=== PATIENT | female | born 1975 | race Caucasian/White ===

== ENCOUNTER → 2016-11-07 | Outpatient (CLI) | payer OTHER ==
--- NOTE | 2016-11-07 16:27 | XR ---
EXAMINATION TYPE: XR chest 2V DATE OF EXAM: 11/07/2016 4:22 PM COMPARISON: 11/02/2014 HISTORY: Shortness of breath FINDINGS: The lungs are clear and there is no pneumothorax, pleural effusion, or focal pneumonia. Postsurgica l change and mild cardiomegaly. There is mild interstitial prominence. IMPRESSION: 1. Correlate for mild venous congestion or bronchitis.
== END | disposition home or self-care (01) ==
LOC: LABWHC1 16:01
PROVIDERS: ATTEND Internal Medicine Cardiovascular Disease
DX: R06.02 Shortness of breath (principal); R91.8 Other nonspecific abnormal finding of lung field
CPT/HCPCS: 36415; 71020; 83880; 85379

== ENCOUNTER 2017-03-12 15:19 | Emergency (ER) | payer OTHER ==
[2017-03-12 15:29] VITALS: BP 140/95; PULSE 94; RESP 18; TEMP 97.4
[2017-03-12] MEDS ORDERED: DIPH,PERTUS(ACELL)TETVAC-LF 0.5 ML VIAL IM ONE (15:46)
--- NOTE | 2017-03-12 15:54 | ED ---
Fall HPI - General Chief Complaint: Fall Stated Complaint: IHS. Fall Time Seen by Provider: 03/12/17 15:31 Source: patient, RN notes reviewed Mode of arrival: ambulatory Limitations: no limitations - History of Present Illness Initial Comments: 41-year-old female presents emergency Department chief complaint fall. Patient states she was walking out of work states that she tripped and fell onto the concrete. Patient has abrasion to her left knee, left hand. Patient primarily complains of left hand and thumb pain. Patient denies any head injury no LOC. She is unsure when her last tetanus was. Patient is able to ambulate on her left knee with minimal discomfort. Denies any hip pain. - Related Data Home Medications Medication Instructions Recorded Confirmed Ezetimibe [Zetia] 10 mg PO HS 09/20/14 10/30/14 Lisinopril [Prinivil] 5 mg PO DAILY 09/20/14 10/30/14 amLODIPine [Norvasc] 5 mg PO QAM 09/21/14 10/30/14 ALPRAZolam 0.5 mg PO TID PRN 10/27/14 10/30/14 Previous Rx's Medication Instructions Recorded Aspirin EC [Ecotrin Low Dose] 162 mg PO DAILY #60 tablet. 11/04/14 HYDROcodone/APAP 5-325MG [[place] 1 each PO Q4HR PRN #40 tab 11/04/14 5-325] Metoprolol Tartrate [Lopressor] 75 mg PO BID #60 tab 11/04/14 Allergies Allergy/AdvReac Type Severity Reaction Status Date / Time No Known Allergies Allergy Verified 03/12/17 15:29 Review of Systems ROS Statement: Those systems with pertinent positive or pertinent negative responses have been documented in the HPI. ROS Other: All systems not noted in ROS Statement are negative. Past Medical History Past Medical History: CVA/TIA, Hyperlipidemia, Hypertension, Sleep Apnea/CPAP/ BIPAP Additional Past Medical History / Comment(s): "MRI SHOWS FEW STROKES;" C/O N/T, WEAKNESS LT ARM. LIGHTHEADEDNESS. History of Any Multi-Drug Resistant Organisms: None Reported Past Surgical History: Cardiac Valve Replacement Additional Past Surgical History / Comment(s): EXC WISDOM TEETH Past Anesthesia/Blood Transfusion Reactions: No Reported Reaction Past Psychological History: Anxiety Additional Psychological History / Comment(s): "HAVE ANXIETY ATTACKS". 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 No experience. No international travels. No animal exposures. Smoking Status: Former smoker Past Alcohol Use History: None Reported Additional Past Alcohol Use History / Comment(s): QUIT SMOKING MAY 2014,SMOKED 15 YRS Past Drug Use History: None Reported - Past Family History Mother Family Medical History: AFIB Additional Family Medical History / Comment(s): "BLOOD CLOT BEHIND HEART" Brother(s) Family Medical History: CVA/TIA Additional Family Medical History / Comment(s): HAD MULT STROKES IN LATE , LUPUS General Exam Limitations: no limitations General appearance: alert, in no apparent distress Head exam: Present: atraumatic, normocephalic, normal inspection Neck exam: Present: normal inspection. Absent: tenderness, meningismus, lymphadenopathy Respiratory exam: Present: normal lung sounds bilaterally. Absent: respiratory distress, wheezes, rales, rhonchi, stridor Cardiovascular Exam: Present: regular rate, normal rhythm, normal heart sounds. Absent: systolic murmur, diastolic murmur, rubs, gallop, clicks Extremities exam: Present: other (Left knee there is small abrasion over the patella with minimal tenderness full range of motion neurovascular intact, left hand there is tenderness over the left thumb, dorsal aspect of the hand there is no snuffbox tenderness there is no wrist tenderness patient has full range of motion and neurovascular intact) Neurological exam: Present: alert, oriented X3, CN II-XII intact Skin exam: Present: warm, dry, intact, normal color. Absent: rash Course Vital Signs 03/12/17 15:25 Temperature 97.4 F L Pulse Rate 94 Respiratory 18 Rate Blood Pressure 140/95 O2 Sat by Pulse 100 Oximetry Medical Decision Making - Medical Decision Making 41-year-old female presented for fall. Patient has multiple abrasions patient' s tetanus was updated. There is no acute fracture of her left hand. Patient is left hand sprain return parameters were discussed. Disposition Clinical Impression: Fall, Sprain of left hand, Knee abrasion Disposition: HOME SELF-CARE Condition: Stable Instructions: Hand Sprain (ED) Additional Instructions: Please return to the Emergency Department if symptoms worsen or any other concerns. Referrals: Hugh Santo MD [Primary Care Provider] - 1-2 days Time of Disposition: 16:00
--- NOTE | 2017-03-12 15:59 | XR ---
EXAMINATION TYPE: XR hand complete LT DATE OF EXAM: 03/12/2017 CLINICAL HISTORY: pain TECHNIQUE: Frontal, lateral and oblique images of the left hand are obtained. COMPARISON: None. FINDINGS: There is no acute fracture/dislocation evident. The joint spaces appear within normal limi ts. The overlying soft tissue appears unremarkable. IMPRESSION: There is no acute fracture or dislocation. ICD 10 NO FRACTURE, INITIAL EVALUATION
== END 2017-03-12 16:25 | disposition home or self-care (01) ==
LOC: EC 15:19
DX: S63.92XA Sprain of unspecified part of left wrist and hand, initial encounter (principal); S60.512A Abrasion of left hand, initial encounter; E78.5 Hyperlipidemia, unspecified; I10 Essential (primary) hypertension; Z86.73 Personal history of transient ischemic attack (TIA), and cerebral infarction without residual deficits; Z23 Encounter for immunization; Z87.891 Personal history of nicotine dependence; Z79.899 Other long term (current) drug therapy; W01.0XXA Fall on same level from slipping, tripping and stumbling without subsequent striking against object, initial encounter; Y99.0 Civilian activity done for income or pay
CPT/HCPCS: 90471; 90715; 99283

== ENCOUNTER 2017-11-11 11:19 | Emergency (ER) | payer OTHER ==
[2017-11-11] MEDS ORDERED: ASPIRIN 81 MG PO STA (11:37)
--- NOTE | 2017-11-11 12:11 | XR ---
EXAMINATION TYPE: XR chest 2V DATE OF EXAM: 11/11/2017 COMPARISON: 11/07/2016 HISTORY: 42-year-old female with chest pain TECHNIQUE: PA and lateral views FINDINGS: Median sternotomy wires are present. The cardiomediastinal silhouette, aorta, and pulmonary vasculatu re are within normal limits. Some strandy atelectasis at the right base. Otherwise, lungs and pleural spaces are clear. IMPRESSION: No acute cardiopulmonary process.
[2017-11-11 12:31] LABS: Basophils # (A) 0.1 k/uL (0-0.2); Basophils % (A) 0 %; Eosinophils # (A) 0.2 k/uL (0-0.7); Eosinophils % (A) 1 %; HCT 44.4 % (34.0-46.0); HGB 14.9 gm/dL (11.4-16.0); Lymphocytes # (A) 2.7 k/uL (1.0-4.8); Lymphocytes % (A) 20 %; MCH 29.6 pg (25.0-35.0); MCHC 33.5 g/dL (31.0-37.0); MCV 88.3 fL (80.0-100.0); Mean Platelet Volume 7.4; Monocytes # (A) 0.4 k/uL (0-1.0); Monocytes % (A) 3 %; Neutrophils # (A) 9.6 k/uL (1.3-7.7); Neutrophils % (A) 73 %; Platelet Count 230 k/uL (150-450); RBC 5.03 m/uL (3.80-5.40); RDW 12.9 % (11.5-15.5); WBC 13.2 k/uL (3.8-10.6)
[2017-11-11 12:41] LABS: ALT 38 U/L (9-52); AST 21 U/L (14-36); Albumin 4.1 g/dL (3.5-5.0); Alkaline Phosphatase 117 U/L (38-126); Anion Gap 10 mmol/L; Blood Urea Nitrogen 11 mg/dL (7-17); Calcium 9.7 mg/dL (8.4-10.2); Carbon Dioxide 26 mmol/L (22-30); Chloride 104 mmol/L (98-107); Glucose 94 mg/dL (74-99); Lipase 49 U/L (23-300); Magnesium 1.7 mg/dL (1.6-2.3); Potassium 3.8 mmol/L (3.5-5.1); Sodium 140 mmol/L (137-145); Total Bilirubin 0.3 mg/dL (0.2-1.3); Total Protein 7.2 g/dL (6.3-8.2)
[2017-11-11 12:52] LABS: Partial Thromboplastin Time 22.5 sec (22.0-30.0); Prothrombin Time 10.1 sec (9.0-12.0)
[2017-11-11 13:21] VITALS: BP 154/77; RESP 20
--- NOTE | 2017-11-11 13:23 | ED ---
Chest Pain HPI - General Chief Complaint: Chest Pain Stated Complaint: SOB Time Seen by Provider: 11/11/17 11:32 Source: patient Mode of arrival: ambulatory Limitations: no limitations - History of Present Illness Initial Comments: Patient complains of chest pain. Pain is in the middle of the chest. It does not radiate anywhere. Nothing makes it better or worse. She has no shortness of breath. She has no dyspnea. She has no exertional symptoms. She has no pain or swelling the legs. She has no palpitations. She denies any recent long plane or cards. She has not traveled anywhere. She has had no syncope or presyncope. - Related Data Home Medications Medication Instructions Recorded Confirmed Aspirin EC [Ecotrin Low Dose] 81 mg PO DAILY 11/11/17 11/11/17 Cyclobenzaprine [Flexeril] 5 mg PO HS 11/11/17 11/11/17 Furosemide [Lasix] 40 mg PO SUMOTU 11/11/17 11/11/17 Ibuprofen [Advil] 600 - 800 mg PO Q8HR PRN 11/11/17 11/11/17 Lisinopril [Prinivil] 20 mg PO DAILY 11/11/17 11/11/17 Metoprolol Tartrate [Lopressor] 50 mg PO BID 11/11/17 11/11/17 Allergies Allergy/AdvReac Type Severity Reaction Status Date / Time No Known Allergies Allergy Verified 11/11/17 12:42 Review of Systems ROS Statement: Those systems with pertinent positive or pertinent negative responses have been documented in the HPI. ROS Other: All systems not noted in ROS Statement are negative. EKG Findings - EKG Comments: EKG Findings:: Twelve-lead EKG shows ventricular rate 90 bpm, normal ER interval and QRS complexes, no ST elevation or depression, interpreted by me as normal sinus rhythm. Past Medical History Past Medical History: CVA/TIA, Hyperlipidemia, Hypertension, Sleep Apnea/CPAP/ BIPAP Additional Past Medical History / Comment(s): "MRI SHOWS FEW STROKES;" C/O N/T, WEAKNESS LT ARM. LIGHTHEADEDNESS. History of Any Multi-Drug Resistant Organisms: None Reported Past Surgical History: Cardiac Valve Replacement Additional Past Surgical History / Comment(s): EXC WISDOM TEETH Past Anesthesia/Blood Transfusion Reactions: No Reported Reaction Past Psychological History: Anxiety Smoking Status: Former smoker Past Alcohol Use History: None Reported Past Drug Use History: None Reported - Past Family History Mother Family Medical History: AFIB Additional Family Medical History / Comment(s): "BLOOD CLOT BEHIND HEART" Brother(s) Family Medical History: CVA/TIA Additional Family Medical History / Comment(s): HAD MULT STROKES IN LATE 20'S, LUPUS General Exam Limitations: no limitations General appearance: alert, in no apparent distress Head exam: Present: atraumatic, normocephalic, normal inspection Eye exam: Present: normal appearance, PERRL, EOMI. Absent: scleral icterus, conjunctival injection, periorbital swelling ENT exam: Present: normal exam, mucous membranes moist Neck exam: Present: normal inspection. Absent: tenderness, meningismus, lymphadenopathy Respiratory exam: Present: normal lung sounds bilaterally. Absent: respiratory distress, wheezes, rales, rhonchi, stridor Cardiovascular Exam: Present: regular rate, normal rhythm, normal heart sounds. Absent: systolic murmur, diastolic murmur, rubs, gallop, clicks GI/Abdominal exam: Present: soft, normal bowel sounds. Absent: distended, tenderness, guarding, rebound, rigid Extremities exam: Present: normal inspection, full ROM, normal capillary refill. Absent: tenderness, pedal edema, joint swelling, calf tenderness Back exam: Present: normal inspection Neurological exam: Present: alert, oriented X3, CN II-XII intact Psychiatric exam: Present: normal affect, normal mood Skin exam: Present: warm, dry, intact, normal color. Absent: rash Course Vital Signs 11/11/17 11:27 Temperature 97.8 F Pulse Rate 116 H Respiratory 22 Rate Blood Pressure 141/101 O2 Sat by Pulse 100 Oximetry Chest Pain [facility] Patient complains of chest pain. Her examination is unremarkable. EKG is normal. Labs are all normal. Chest x-ray is normal. Patient is not having any symptoms on reevaluation. There is no evidence of an acute emergency condition at this time. She is stable for discharge. Disposition Clinical Impression: Chest pain Disposition: HOME SELF-CARE Condition: Good Instructions: Chest Pain (ED) Referrals: Hugh Santo MD [Primary Care Provider] - 1-2 days Time of Disposition: 13:23
[2017-11-11 13:42] VITALS: PULSE 87; TEMP 98
== END 2017-11-11 13:42 | disposition home or self-care (01) ==
LOC: EC 11:19
DX: R07.9 Chest pain, unspecified (principal); E78.5 Hyperlipidemia, unspecified; I10 Essential (primary) hypertension; G47.30 Sleep apnea, unspecified; Z99.89 Dependence on other enabling machines and devices; Z95.4 Presence of other heart-valve replacement; Z86.73 Personal history of transient ischemic attack (TIA), and cerebral infarction without residual deficits; Z87.891 Personal history of nicotine dependence; Z79.82 Long term (current) use of aspirin; Z79.899 Other long term (current) drug therapy
CPT/HCPCS: 36415; 71046; 80053; 83690; 83735; 83880; 84484; 85025; 85610; 85730; 87502; 93005; 99285

== ENCOUNTER 2017-12-30 09:08 | Emergency (ER) | payer OTHER ==
[2017-12-30 10:18] VITALS: TEMP 98.3
[2017-12-30] MEDS ORDERED: cloNIDine HCL 0.2 MG TAB PO STA (10:23)
[2017-12-30] MEDS ORDERED: ACETAMINOPHEN TAB 500 MG TAB PO STA (10:23)
[2017-12-30] MEDS ORDERED: IBUPROFEN 600 MG TAB PO STA (10:23)
[2017-12-30] MEDS ORDERED: cefTRIAXone 250 MG VIAL IM STA (11:40)
--- NOTE | 2017-12-30 11:45 | ED ---
Eye Problem HPI - General Chief complaint: Eye Problems Stated complaint: left eye swelling Time Seen by Provider: 12/30/17 10:04 Source: patient, RN/MD, RN notes reviewed, old records reviewed Mode of arrival: ambulatory Limitations: no limitations - History of Present Illness Initial comments: This patient is a 42 year old female with redness and swelling to left upper eyelid for one day. She reports she has always had a firm lump in her upper eyelid, but has noticed that yesterday evening into today that she has erythema over the upper eyelid. No pain with bright lights in eye or EOM. Patient reports no fever or chills. No history of resistent infections. History of HTN, heart valve replacement. She has no chest pain, shortness of breath, headache, nausea, vomiting, abdominal pain. - Related Data Home Medications Medication Instructions Recorded Confirmed Aspirin EC [Ecotrin Low Dose] 81 mg PO DAILY 11/11/17 12/30/17 Cyclobenzaprine [Flexeril] 5 mg PO HS 11/11/17 12/30/17 Furosemide [Lasix] 40 mg PO SUMOTU 11/11/17 12/30/17 Ibuprofen [Advil] 600 - 800 mg PO Q8HR PRN 11/11/17 12/30/17 Lisinopril [Prinivil] 20 mg PO DAILY 11/11/17 12/30/17 Metoprolol Tartrate [Lopressor] 50 mg PO BID 11/11/17 12/30/17 Previous Rx's Medication Instructions Recorded Cephalexin [Keflex] 500 mg PO Q6HR #40 cap 12/30/17 Erythromycin Ophth Oint [Romycin 1 applic LEFT EYE QID #1 gm 12/30/17 Ophth Oint] Allergies Allergy/AdvReac Type Severity Reaction Status Date / Time No Known Allergies Allergy Verified 12/30/17 09:25 Review of Systems ROS Statement: Those systems with pertinent positive or pertinent negative responses have been documented in the HPI. ROS Other: All systems not noted in ROS Statement are negative. Past Medical History Past Medical History: CVA/TIA, Hyperlipidemia, Hypertension, Sleep Apnea/CPAP/ BIPAP Additional Past Medical History / Comment(s): "MRI SHOWS FEW STROKES;" C/O N/T, WEAKNESS LT ARM. LIGHTHEADEDNESS. History of Any Multi-Drug Resistant Organisms: None Reported Past Surgical History: Cardiac Valve Replacement Additional Past Surgical History / Comment(s): EXC WISDOM TEETH Past Anesthesia/Blood Transfusion Reactions: No Reported Reaction Past Psychological History: Anxiety Smoking Status: Former smoker Past Alcohol Use History: None Reported Past Drug Use History: None Reported - Past Family History Mother Family Medical History: AFIB Additional Family Medical History / Comment(s): "BLOOD CLOT BEHIND HEART" Brother(s) Family Medical History: CVA/TIA Additional Family Medical History / Comment(s): HAD MULT STROKES IN LATE 20'S, LUPUS General Exam - General Exam Comments Initial Comments: This is a 42 year old female, no distress. Limitations: no limitations General appearance: alert, in no apparent distress Head exam: Present: atraumatic, normocephalic, normal inspection Eye exam: Present: normal appearance, PERRL, EOMI, other (left upper eyelid swelling and erythema with blepharitis. She has a chalazion over left eye lid as well. ). Absent: scleral icterus, conjunctival injection, periorbital swelling ENT exam: Present: normal exam, mucous membranes moist Neck exam: Present: normal inspection. Absent: tenderness, meningismus, lymphadenopathy Respiratory exam: Present: normal lung sounds bilaterally. Absent: respiratory distress, wheezes, rales, rhonchi, stridor Cardiovascular Exam: Present: regular rate, normal rhythm, normal heart sounds. Absent: systolic murmur, diastolic murmur, rubs, gallop, clicks GI/Abdominal exam: Present: soft, normal bowel sounds. Absent: distended, tenderness, guarding, rebound, rigid Extremities exam: Present: normal inspection, full ROM, normal capillary refill. Absent: tenderness, pedal edema, joint swelling, calf tenderness Back exam: Present: normal inspection Neurological exam: Present: alert, oriented X3, CN II-XII intact Psychiatric exam: Present: normal affect, normal mood Course Vital Signs 12/30/17 12/30/17 12/30/17 09:11 10:16 11:53 Temperature 98.0 F 98.3 F Pulse Rate 108 H 100 88 Respiratory 20 16 20 Rate Blood Pressure 218/106 203/123 141/95 O2 Sat by Pulse 98 97 96 Oximetry Medical Decision Making - Medical Decision Making This is a 42 year old female with upper eyelid swelling for one day. She has history of chalazion. She has no pain with EOM, and visual acuity intact. She arrived hypertensive. Given .2mg of catapress. Discussed she needs to follow up with PCP with HTN. Patient had a small area of pus that I was able to Draine with a 23g needle. Small amount of fluid, unable to obtain culture. She will be given IM rocephin, keflex starter pack, and erythromycin eye ointment. Referred to opthalmology. Discussed cool compresses and return parameters discussed. Disposition Clinical Impression: Blepharitis, left eye, Chalazion left eye, unspecified eyelid Disposition: HOME SELF-CARE Condition: Good Instructions: Chalazion (ED), Blepharitis (ED) Additional Instructions: Patient has a follow-up with primary care provider and embalmer assistant. Take Antibiotic as prescribed. Use the eye ointment. Return to emergency department if any alarming signs or symptoms occur. Prescriptions: Cephalexin [Keflex] 500 mg PO Q6HR #40 cap Erythromycin Ophth Oint [Romycin Ophth Oint] 1 applic LEFT EYE QID #1 gm Referrals: Hugh Santo MD [Primary Care Provider] - 1-2 days Tello Haley MD [STAFF PHYSICIAN] - 1-2 days Time of Disposition: 11:41
[2017-12-30 11:54] VITALS: BP 141/95; PULSE 88; RESP 20
== END 2017-12-30 12:03 | disposition home or self-care (01) ==
LOC: EC 09:08
DX: H00.16 Chalazion left eye, unspecified eyelid (principal); H01.004 Unspecified blepharitis left upper eyelid; I10 Essential (primary) hypertension; G47.30 Sleep apnea, unspecified; Z95.2 Presence of prosthetic heart valve; Z87.891 Personal history of nicotine dependence; Z86.73 Personal history of transient ischemic attack (TIA), and cerebral infarction without residual deficits; Z79.82 Long term (current) use of aspirin; Z79.899 Other long term (current) drug therapy
CPT/HCPCS: 99283; 96372; J0696

== ENCOUNTER → 2019-10-18 | Outpatient (CLI) | payer OTHER ==
--- NOTE | 2019-10-18 09:51 | US ---
EXAMINATION TYPE: US carotid duplex BILAT DATE OF EXAM: 10/18/2019 COMPARISON: US 10/26/2014 CLINICAL HISTORY: I35.0 aortic (valve) stenosis, Z95.2 aortic valve. Pre-op open heart EXAM MEASUREMENTS: RIGHT: Peak Systolic Velocity (PSV) cm/sec ----- Right CCA: 117.0 ----- Right ICA: 105 ----- Right ECA: 161 ICA/CCA ratio: 0.9 RIGHT: End Diastole cm/sec ----- Right CCA: 40.3 ----- Right ICA: 36.9 ----- Right ECA: 36.9 LEFT: Peak Systolic Velocity (PSV) cm/sec ----- Left CCA: 100 ----- Left ICA: 96.0 ----- Left ECA: 108.0 ICA/CCA ratio: 0.9 LEFT: End Diastole cm/sec ----- Left CCA: 41.2 ----- Left ICA: 36.9 ----- Left ECA: 24.0 VERTEBRALS (direction of flow): Right Vertebral: Antegrade Left Vertebral: Antegrade Rhythm: Normal Minimal plaque visualized bilaterally. Elevated velocity of the right external carotid artery. IMPRESSION: Mild degree of grayscale atheromatous plaquing with no sonographically evident hemodynam ically significant stenosis within either common carotid or internal carotid artery. Incidentally not ed elevated peak systolic velocity of the left external carotid artery likely relating to stenosis of 50-69%. Criteria for Assigning % of Stenosis / Diameter reduction (Estimation based on the indirect measurements of the internal carotid artery velocities (ICA PSV). 1. Normal (no stenosis)=ICA PSV < 125 cm/s: ratio < 2.0: ICA EDV<40 cm/s. 2. Less than 50% stenosis=ICA PSV < 125 cm/s: ratio < 2.0: ICA EDV<40 cm/s. 3. 50 to 69% stenosis=ICA PSV of 125 to 230 cm/s: ration 2.0 ? 4.0: ICA EDV 40-100 cm/s. 4. Greater than 70% stenosis to near occlusion= ICA PSV > 230 cm/s: ratio > 4.0: ICA EDV > 100 cm/s. 5. Near occlusion= ICA PSV velocities may be low or undetectable: variable ratio and ICA EDV. 6. Total occlusion=unable to detect flow.
== END | disposition home or self-care (01) ==
LOC: RADUSWWP 09:01
PROVIDERS: ATTEND Surgery
DX: I65.23 Occlusion and stenosis of bilateral carotid arteries (principal); I35.0 Nonrheumatic aortic (valve) stenosis
CPT/HCPCS: 93880; 94060; 94726; 94729

== ENCOUNTER → 2019-10-18 | Outpatient (CLI) | payer OTHER ==
[2019-10-18 10:05] LABS: HGB 15.3 gm/dL (11.4-16.0); MCH 30.5 pg (25.0-35.0); MCV 89.9 fL (80.0-100.0); Mean Platelet Volume 9.2; Platelet Count 187 k/uL (150-450); RDW 13.6 % (11.5-15.5)
[2019-10-18 10:20] LABS: Potassium 4.4 mmol/L (3.5-5.1)
== END | disposition home or self-care (01) ==
LOC: LABPAT 08:40
PROVIDERS: ATTEND Internal Medicine Cardiovascular Disease
DX: Z01.812 Encounter for preprocedural laboratory examination (principal); Z95.2 Presence of prosthetic heart valve
CPT/HCPCS: 80051; 82565; 84520; 85027

== ENCOUNTER 2019-10-20 09:36 | Day surgery (SDC) | payer OTHER ==
[2019-10-18 16:00] VITALS: BMI 35.4
[~2019-10-20 09:36] MED LIST: ALPRAZolam 0.25 MG TAB PO PRN; ALPRAZolam 0.5 MG TAB PO PRN; ASPIRIN 325 MG TAB PO ONE; ATORVASTATIN 80 MG TAB PO ONE; NITROGLYCERIN SL TABS 0.4 MG TAB SUBLINGUAL PRN; SODIUM CHLORIDE 0.9% 1,000 ML in EMPTY BAG 1 BAG IV ONE
[2019-10-20] MEDS ORDERED: fentaNYL (PF) 50 MCG/ML 2 ML AMP ONE (10:56)
[2019-10-20] MEDS ORDERED: LIDOCAINE 1% INJ 10MG/ML (20 ML MDV) ONE (10:56)
[2019-10-20] MEDS: MIDAZOLAM 2 MG/2 ML VIAL IVP ONE ×2 (11:29→11:45)
[2019-10-20] MEDS ORDERED: fentaNYL (PF) 50 MCG/ML 2 ML AMP IV ONE (11:29)
[2019-10-20] MEDS ORDERED: LIDOCAINE 1% INJ 10MG/ML (20 ML MDV) SQ ONE (11:34)
[2019-10-20] MEDS ORDERED: IOPAMIDOL-370 125ML BTL INJ ONE (11:56)
[2019-10-20] MEDS ORDERED: RX INFO: IV CONTRAST WAS GIVEN 1 EACH MISC MISCELLANE PRN (12:10)
[2019-10-20] MEDS ORDERED: ALPRAZolam 0.25 MG TAB PO PRN (12:12)
--- NOTE | 2019-10-20 13:46 | CC ---
CARDIAC CATHETERIZATION REPORT Mrs. Mcgee is a 44-year-old female who underwent a cardiac catheterization prior to the anticipated aortic valve replacement. This patient has a history of multiple embolic strokes in the past and she underwent bioprosthetic aortic valve replacement by Dr. Fernandez in 2014. Since then, the patient had developed progressive increase in the gradient across the bioprosthetic aortic valve. The patient was referred to the [facility] where she had been been followed for a couple of years. Because of progressively increasing symptoms of shortness of breath and increasing gradient, the patient was advised bioprosthetic valve replacement. The patient wants to have a replacement. The cardiac catheterization was done prior to the anticipated aortic valve replacement. The patient does not have any symptoms of angina. The patient has a history of hypertension. PROCEDURE: The right groin was prepped and draped in the usual manner and the skin was infiltrated with 2% Xylocaine. The right femoral artery was entered using Seldinger technique and #6-Thai sheath was placed in. Selective coronary angiography was then performed in multiple projections. Initially when the left coronary catheter was engaged into the left main, there was dampening of the pressure and the ventricularization. After the first shot, most of the shots were obtained after the catheter being outside the left main ostium. The patient was also given intracoronary nitroglycerin through the left coronary catheter. The left coronary angiography was performed in multiple projections as well as right coronary angiogram was performed. The patient tolerated the procedure well. There was no evidence of any chest pain during the procedure. SELECTIVE CORONARY ANGIOGRAPHY: Left main coronary artery shows ostial stenosis of 70-80%. The rest of the LAD and circumflex coronary arteries are normal. Circumflex coronary artery is nondominant in distribution. Right coronary artery is dominant in distribution and gives rise to the posterior descending artery. Right coronary artery and its branches are normal. FINAL IMPRESSION: There is evidence of 70-80% ostial stenosis of the left main coronary artery. There was ventricularization and pressure drop every time the left coronary artery ostium was engaged. The right coronary artery is normal. RECOMMENDATIONS: Films were reviewed with Dr. HERMINIA Bhardwaj. We will discuss with the cardiac surgeon, Dr. Sam, at the [facility], to evaluate this left main coronary artery ostial stenosis and may need coronary artery bypass surgery. MMODL / IJN: [id number] /
[2019-10-20] MEDS: ISOSORBIDE MONONITRATE ER 30 MG TAB.ER.24H PO SCH (16:15)
[2019-10-20] MEDS: METOPROLOL TARTRATE 50 MG TAB PO SCH (21:30)
[2019-10-21] MEDS: METOPROLOL TARTRATE 50 MG TAB PO SCH (08:12)
[2019-10-21] MEDS: ISOSORBIDE MONONITRATE ER 30 MG TAB.ER.24H PO SCH (08:12)
[2019-10-21 08:21] VITALS: BP 119/66; PULSE 82; RESP 18; TEMP 98
[2019-10-21] MEDS ORDERED: LISINOPRIL-HCTZ 20-25 MG 1 EACH TAB PO SCH (09:00)
[2019-10-21] MEDS ORDERED: ATORVASTATIN 40 MG TAB PO SCH (09:00)
[2019-10-21] MEDS ORDERED: ASPIRIN 81 MG PO SCH (09:00)
[2019-10-23] MEDS ORDERED: FUROSEMIDE 40 MG TAB PO SCH (09:00)
--- NOTE | 2019-11-03 15:54 | DS ---
DISCHARGE SUMMARY This patient is status post aortic valve replacement and was admitted yesterday to evaluate her coronary arteries and cardiac catheterization before elective aortic valve replacement. The patient underwent cardiac catheterization. She was found to have about 70% mid left main artery stenosis. The patient has symptoms of exertional shortness of breath. Today patient is doing fairly well. Denies any chest pain, shortness of breath. The right groin is normal. Patient's blood pressure is fairly well controlled. I discussed these findings with the patient. We will send the angiogram to the cardiothoracic surgeon at [facility] and I will contact them to make them aware of the findings of the coronary angiogram. The patient will be discharged home on the current medications. MMODL / IJN: [id number] /
== END 2019-10-21 12:40 | disposition home or self-care (01) ==
LOC: CATHCVL 09:36 → 3SCARD 12:20 → CATHCVL 10-21 12:40
PROVIDERS: ATTEND Internal Medicine Cardiovascular Disease
DX: I25.10 Atherosclerotic heart disease of native coronary artery without angina pectoris (principal); Z95.2 Presence of prosthetic heart valve; I10 Essential (primary) hypertension; E78.2 Mixed hyperlipidemia; F17.210 Nicotine dependence, cigarettes, uncomplicated; I66.9 Occlusion and stenosis of unspecified cerebral artery; Z86.73 Personal history of transient ischemic attack (TIA), and cerebral infarction without residual deficits; Z79.82 Long term (current) use of aspirin; Z79.899 Other long term (current) drug therapy
CPT/HCPCS: 93454; 81025; C1769 ×3; C1760; C1894; J2250; J2001; J3010; Q9967

== ENCOUNTER → 2019-11-17 | Outpatient (CLI) | payer OTHER ==
[2019-11-17 22:57] LABS: African American GFR (CKD) 69.7 (60.0-200.0); Anion Gap 5.1 mmol/L (4.00-12.00); BUN/Creat Ratio 13.64 Ratio (12.00-20.00); Calcium 8.9 mg/dL (8.7-10.3); Carbon Dioxide 26.9 mmol/L (21.6-31.8); Non-African American GFR(CKD) 60.2 (60.0-200.0); Potassium 4.5 mmol/L (3.5-5.5)
== END | disposition home or self-care (01) ==
LOC: LABWHC1 16:12
PROVIDERS: ATTEND Surgery
DX: I35.0 Nonrheumatic aortic (valve) stenosis (principal)
CPT/HCPCS: 36415; 80048

== ENCOUNTER → 2021-01-28 | Outpatient (CLI) | payer MEDICAID ==
[2021-01-28 16:18] LABS: HCT 41.8 % (34.0-46.0); HGB 14.3 gm/dL (11.4-16.0); MCH 29.9 pg (25.0-35.0); MCHC 34.1 g/dL (31.0-37.0); MCV 87.8 fL (80.0-100.0); Mean Platelet Volume 7.5; Platelet Count 285 k/uL (150-450); RBC 4.76 m/uL (3.80-5.40); RDW 14.1 % (11.5-15.5); WBC 15.2 k/uL (3.8-10.6)
[2021-01-28 16:26] LABS: Potassium 4.4 mmol/L (3.5-5.1)
== END | disposition home or self-care (01) ==
LOC: LABPAT 15:32
PROVIDERS: ATTEND Internal Medicine
DX: Z01.812 Encounter for preprocedural laboratory examination (principal); R07.9 Chest pain, unspecified
CPT/HCPCS: 36415; 80051; 82565; 84520; 85027

== ENCOUNTER → 2021-02-04 | Day surgery (SDC) | payer MEDICAID, OTHER ==
[2021-02-01 08:51] VITALS: BMI 40.4
[~2021-02-04] MED LIST changes: +ACETAMINOPHEN TAB 325 MG TAB ONE; +ACETAMINOPHEN TAB 325 MG TAB PO STA; -ASPIRIN 325 MG TAB PO ONE; +ASPIRIN 325 MG TAB PO STA; +ASPIRIN 81 MG PO SCH; -ATORVASTATIN 80 MG TAB PO ONE; +ATORVASTATIN 80 MG TAB PO STA; +CLOPIDOGREL 75 MG TAB PO SCH; +ENOXAPARIN 100 MG/ML SYRINGE SQ SCH; +GABAPENTIN 300 MG CAP PO SCH; +HEPARIN SODIUM 1,000 UN/ML (10ML VL) IV ONE; +IOPAMIDOL-370 125ML BTL INJ ONE; +LIDOCAINE 1% INJ 10MG/ML (20 ML MDV) SQ ONE; +LISINOPRIL-HCTZ 20-25 MG 1 EACH TAB PO SCH; +METOPROLOL TARTRATE 50 MG TAB PO SCH; +MIDAZOLAM 2 MG/2 ML VIAL IV ONE; +ONDANSETRON 4 MG/2 ML VIAL IVP STA; +PANTOPRAZOLE 40 MG TABLET PO SCH; +RX INFO: IV CONTRAST WAS GIVEN 1 EACH MISC MISCELLANE PRN; +SODIUM CHLORIDE 0.9% 1,000 ML IV ONE; +SODIUM CHLORIDE 0.9% 1,000 ML IV SCH; +WARFARIN 10 MG TAB PO ONE; +WARFARIN 10 MG TAB PO SCH; +WARFARIN 7.5 MG TAB PO SCH; +fentaNYL (PF) 50 MCG/ML 2 ML AMP IV ONE
[2021-02-04 11:20] LABS: Basophils # (A) 0.1 k/uL (0-0.2); Basophils % (A) 0 %; Eosinophils # (A) 0.3 k/uL (0-0.7); Eosinophils % (A) 3 %; HCT 44.6 % (34.0-46.0); HGB 14.9 gm/dL (11.4-16.0); Lymphocytes # (A) 1.8 k/uL (1.0-4.8); Lymphocytes % (A) 16 %; MCHC 33.4 g/dL (31.0-37.0); MCV 86.8 fL (80.0-100.0); Mean Platelet Volume 7.4; Monocytes # (A) 0.5 k/uL (0-1.0); Monocytes % (A) 5 %; Neutrophils # (A) 8.5 k/uL (1.3-7.7); Neutrophils % (A) 75 %; Platelet Count 320 k/uL (150-450); RBC 5.13 m/uL (3.80-5.40); RDW 14.2 % (11.5-15.5); WBC 11.3 k/uL (3.8-10.6)
[2021-02-04 11:22] VITALS: RESP 16; TEMP 98.5
[2021-02-04 11:36] LABS: Calcium 9.5 mg/dL (8.4-10.2); Potassium 4.2 mmol/L (3.5-5.1)
[2021-02-04 11:44] LABS: Prothrombin Time 11.1 sec (9.0-12.0)
[2021-02-04] MEDS: VERAPAMIL SYRINGE (5 MG/10 ML) INTRAARTER ONE ×2 (12:34→12:51)
[2021-02-04] MEDS: NITROGLYCERIN 1000MCG/10ML SYRINGE INTRACORON ONE ×2 (13:03→13:31)
--- NOTE | 2021-02-04 13:56 | P.CARDCATH ---
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 She had undergone diagnostic heart catheterization prior to her repeat surgery which is shown relatively normal coronary arteries except and intermediate 50-60% left main stenosis. She has been having increased dyspnea on exertion and when she was set up for stress testing, she had nonsustained ventricular tachycardia and therefore heart catheterization was recommended. CONSENT:I have discussed the risks, benefits and alternative therapies for the above-mentioned procedure and for both sedation/analgesia as well as necessary blood product administration, if indicated, as they pertain to this patient. The patient has indicated understanding and acceptance of the risks and procedures discussed. PROCEDURE: After the risks, benefits and alternatives of the above mentioned procedure explained in detail with the patient, informed consent was obtained. Patient was taken to the catheterization lab and prepped and draped in usual fashion. 1% lidocaine was used to anesthetize the right radial artery. A 6- Israeli sheath was placed in the right radial artery using modified Seldinger technique. Left coronary angiography was performed with a 5-Israeli JL 3.5 catheter subselectively. Right coronary angiography was performed with a 5- Israeli JR5 catheter in various views. There was dampening noted with engagement of the 5-Israeli FL 3.5 catheter. The left main stenosis appeared improved as it had appeared 60% on prior angiograms however images today appeared 30%. Therefore intracoronary nitroglycerin was given and a CLS 3.0 guide catheter was used to subselectively take images. A 0.014 iFR pressure wire was advanced into the aorta and normalize. The pressure wire was then advanced into the mid LAD as well as the mid circumflex with iFR measurements of 0.94. To verify this, IVUS was also performed. IVUS showed no significant coronary artery disease of the mid left main with a 5.0 x 5.0 reference diameter. There was minimal narrowing of the stenotic area to a cross section of 4.5 x 4.5 mm. Intracoronary nitroglycerin was again given with repeat imaging showing 10% stenosis and stenosis attributed to vasospasm. The right radial sheath was removed and a TR band was placed with hemostasis achieved. The patient tolerated the procedure well. Patient was transported back to the post catheterization holding area in stable condition. Conscious Sedation: Patient was monitored under the direct supervision of vision of myself for conscious sedation using Versed and fentanyl for a total duration of 70 minutes HEMODYNAMICS: 132/72 SELECTIVE CORONARY ARTERIOGRAPHY: LEFT MAIN: The left main is a large caliber vessel which bifurcates into the LAD and circumflex. There is a proximal left main 10% stenosis. LEFT ANTERIOR DESCENDING CORONARY ARTERY: LAD is a large caliber vessel which wraps around to the apex. There is no significant stenosis. LEFT CIRCUMFLEX CORONARY ARTERY: Left circumflex is a moderate caliber vessel without significant stenosis. RIGHT CORONARY ARTERY: The right coronary artery is a large caliber vessel which gives off a PDA and PLV branch and is the dominant vessel. There is no s ignificant stenosis. FINAL IMPRESSION: 1. Normal coronary arteries as described above with only 10% left main narrowing related to spasm PLAN: 1. Aggressive risk factor modification per most recent ACC/AHA guidelines. 2. Follow-up in the office in 1-2 weeks.
[2021-02-04 18:00] VITALS: BP 108/67; PULSE 67
== END ==
LOC: CATHCVL 10:10
PROVIDERS: ATTEND Internal Medicine
DX: I20.1 Angina pectoris with documented spasm (principal); I10 Essential (primary) hypertension; I47.2 Ventricular tachycardia; R07.2 Precordial pain; I25.10 Atherosclerotic heart disease of native coronary artery without angina pectoris; E78.2 Mixed hyperlipidemia; Z87.891 Personal history of nicotine dependence; Z95.2 Presence of prosthetic heart valve; Z79.01 Long term (current) use of anticoagulants; Z79.899 Other long term (current) drug therapy; K21.9 Gastro-esophageal reflux disease without esophagitis; G47.33 Obstructive sleep apnea (adult) (pediatric); Z91.19 Patient's noncompliance with other medical treatment and regimen; Z86.79 Personal history of other diseases of the circulatory system
CPT/HCPCS: 93571; 92978; 93454; 80048; 85025; 85610; 81025; 87635; C1769; C1887; C1894; C1753; J2250; J2405; J2001; J3010; J1644; Q9967

== ENCOUNTER → 2021-04-02 | Outpatient (CLI) | payer MEDICAID ==
--- NOTE | 2021-04-03 07:11 | US ---
EXAMINATION TYPE: US carotid duplex BILAT DATE OF EXAM: 04/02/2021 COMPARISON: NONE CLINICAL HISTORY: Z95.2 Presence of prosthetic heart valve,Z86.76. multiple TIA's EXAM MEASUREMENTS: RIGHT: Peak Systolic Velocity (PSV) cm/sec ----- Right CCA: 83.1 ----- Right ICA: 68.5 ----- Right ECA: 114.5 ICA/CCA ratio: 0.8 RIGHT: End Diastole cm/sec ----- Right CCA: 32.5 ----- Right ICA: 33.0 ----- Right ECA: 34.1 LEFT: Peak Systolic Velocity (PSV) cm/sec ----- Left CCA: 93.2 ----- Left ICA: 89.8 ----- Left ECA: 75.3 ICA/CCA ratio: 1.0 LEFT: End Diastole cm/sec ----- Left CCA: 37.0 ----- Left ICA: 34.7 ----- Left ECA: 19.5 VERTEBRALS (direction of flow): Right Vertebral: Antegrade Left Vertebral: Antegrade Rhythm: Normal Mild homogeneous plaque with no significant stenosis seen IMPRESSION: No sonographic evidence for hemodynamically significant stenosis of the carotid arteries. Criteria for Assigning % of Stenosis / Diameter reduction (Estimation based on the indirect measurements of the internal carotid artery velocities (ICA PSV). 1. Normal (no stenosis)=ICA PSV < 125 cm/s: ratio < 2.0: ICA EDV<40 cm/s. 2. Less than 50% stenosis=ICA PSV < 125 cm/s: ratio < 2.0: ICA EDV<40 cm/s. 3. 50 to 69% stenosis=ICA PSV of 125 to 230 cm/s: ration 2.0 ? 4.0: ICA EDV 40-100 cm/s. 4. Greater than 70% stenosis to near occlusion= ICA PSV > 230 cm/s: ratio > 4.0: ICA EDV > 100 cm/s. 5. Near occlusion= ICA PSV velocities may be low or undetectable: variable ratio and ICA EDV. 6. Total occlusion=unable to detect flow.
== END | disposition home or self-care (01) ==
LOC: RADUSWWP 15:26
PROVIDERS: ATTEND Family Medicine
DX: G45.9 Transient cerebral ischemic attack, unspecified (principal); Z95.2 Presence of prosthetic heart valve
CPT/HCPCS: 93880

== ENCOUNTER → 2021-04-26 | Outpatient (CLI) | payer MEDICAID ==
[2021-04-27 11:22] LABS: Follicle Stimulating Hormone 6.8 mIU/mL; Luteinizing Hormone 2.7 mIU/mL
== END | disposition home or self-care (01) ==
LOC: LABWHC1 15:27
PROVIDERS: ATTEND Family Medicine
DX: N95.1 Menopausal and female climacteric states (principal)
CPT/HCPCS: 36415; 83001; 83002

== ENCOUNTER → 2021-11-10 | Outpatient (CLI) | payer MEDICAID, OTHER | END | disposition home or self-care (01) | LOC: LABWHC1 11:43 | PROVIDERS: ATTEND Emergency Medicine | DX: Z20.822 Contact with and (suspected) exposure to COVID-19 (principal) | CPT/HCPCS: 87635 ==

== ENCOUNTER 2022-03-17 22:16 | Observation (INO) | payer MEDICAID, OTHER ==
[2022-03-17] MEDS ORDERED: SODIUM CHLORIDE 0.9% 500 ML 500 ML IV STA (22:37)
[2022-03-17] MEDS ORDERED: NITROGLYCERIN OINT 1 INCH/GM PACKET TOPICAL STA (22:37)
[2022-03-17] MEDS ORDERED: ASPIRIN 81 MG PO STA (22:37)
--- NOTE | 2022-03-17 22:46 | ED ---
General Adult HPI - General Chief complaint: Chest Pain Stated complaint: Chest Pain Time Seen by Provider: 03/17/22 22:19 Source: patient Mode of arrival: ambulatory - History of Present Illness Initial comments: Dictation was produced using [employer] dictation software. please excuse any grammatical, word or spelling errors. Chief Complaint: 38-year-old female past medical history coronary artery disease, cardiac valve replacement presents as a patient to the emergency department for chest pain. History of Present Illness: She is a 38-year-old female she has past medical history of CVA, dyslipidemia, hypertension coronary artery disease. 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 At the same time she was noticed by nurse to be having diaphoresis. Most recently patient had a cardiac catheterization in January of last year showing normal coronary arteries with 10% left main narrowing related to spasm. She reports that her symptoms lasted for several minutes. She states that at the time that I evaluated her chest symptoms are virtually gone. She does however report she still feels a little diaphoretic. Patient states that the pain as sharp. She does report having had some shortness of breath recentl y. The ROS documented in this emergency department record has been reviewed and confirmed by me. Those systems with pertinent positive or negative responses have been documented in the HPI. All other systems are other negative and/or noncontributory. PHYSICAL EXAM: General Impression: Alert and oriented x3, not in acute distress, mildly diaphoretic HEENT: Normocephalic atraumatic, extra-ocular movements intact, pupils equal and reactive to light bilaterally, mucous membranes moist. Cardiovascular: Heart regular rate and rhythm Chest: Able to complete full sentences, no retractions, no tachypnea Abdomen: abdomen soft, non-tender, non-distended, no organomegaly Musculoskeletal: Pulses present and equal in all extremities, no peripheral edema Motor: no focal deficits noted Neurological: CN II-XII grossly intact, no focal motor or sensory deficits noted Skin: Intact with no visualized rashes Psych: Normal affect and mood ED course: 46-year-old female presents to the emergency department for chest pain. Patient is diaphoretic. She states that she has sharp chest pain that greatest on the left upper extremity. At the time of my evaluation she states that her chest symptoms are virtually gone. Serum EKGs were ordered in the emergency department. Initial EKG showed right bundle branch block with ST depressions and aVL, V2. There does appear to be PVCs. Repeat EKG performed 6 minutes later shows no dynamic changes. EKG interpretation: Ventricular rate 92, sinus rhythm, right bundle branch block,. 147, QS 120, QTC 461. No RI prolongation, no QTC prolongation. There does appear to be ST depressions in V2 and aVL similar to EKG from 11/11/2017. Overall this EKG shows new right bundle branch block Laboratory evaluation obtained. CBC shows leukocytosis of 17.9. Patient has a history of leukocytosis. Metabolic panel is within acceptable limits. Troponin is negative. Prematurity peptide is negative. D-dimer is elevated 0.81. Chest x-ray is nonacute. Patient reevaluated at bedside at 12:10 AM found to be in stable medical condition. Patient denies any symptoms at this time. CT angios not show any evidence of pulmonary embolus. She does not appear to be diaphoretic. Disposition options were discussed. Patient agreeable for observation admission for cardiac monitoring, serial troponins and cardiology consultation. - Related Data Home Medications Medication Instructions Recorded Confirmed Metoprolol Tartrate [Lopressor] 50 mg PO BID 11/11/17 03/18/22 Lisinopril-Hctz 20-25 mg 1 tab PO DAILY 10/18/19 03/18/22 [Zestoretic 20-25] Omeprazole 20 mg PO DAILY 02/01/21 03/18/22 Warfarin [Coumadin] 5 mg PO SUTUTHSA 02/01/21 03/18/22 Warfarin [Coumadin] 7.5 mg PO MOWEFR 02/01/21 03/18/22 ALPRAZolam [Xanax] 0.25 mg PO BID PRN 03/18/22 03/18/22 Liraglutide [Saxenda] 1.2 mg SQ DAILY 03/18/22 03/18/22 Meloxicam [Mobic] 15 mg PO HS 03/18/22 03/18/22 amLODIPine [Norvasc] 5 mg PO HS 03/18/22 03/18/22 Previous Rx's Medication Instructions Recorded Enoxaparin [Lovenox] 100 mg SQ Q12H #6 each 03/18/22 Nitroglycerin Sl Tabs [Nitrostat] 0.4 mg SUBLINGUAL Q5M PRN #10 tab 03/18/22 Allergies Allergy/AdvReac Type Severity Reaction Status Date / Time No Known Allergies Allergy Verified 03/18/22 07:26 Review of Systems ROS Statement: Those systems with pertinent positive or pertinent negative responses have been documented in the HPI. ROS Other: All systems not noted in ROS Statement are negative. Past Medical History Past Medical History: CVA/TIA, Hyperlipidemia, Hypertension, Sleep Apnea/CPAP/BIPAP Additional Past Medical History / Comment(s): "MRI SHOWS FEW STROKES;" C/O N/T, WEAKNESS LT ARM. LIGHTHEADEDNESS. History of Any Multi-Drug Resistant Organisms: None Reported Past Surgical History: Cardiac Valve Replacement Additional Past Surgical History / Comment(s): EXC WISDOM TEETH Past Anesthesia/Blood Transfusion Reactions: No Reported Reaction Past Psychological History: Anxiety Past Alcohol Use History: None Reported - Past Family History Mother Family Medical History: AFIB Additional Family Medical History / Comment(s): "BLOOD CLOT BEHIND HEART" Brother(s) Family Medical History: CVA/TIA Additional Family Medical History / Comment(s): HAD MULT STROKES IN LATE 'S, LUPUS Course Vital Signs 03/17/22 03/18/22 22:35 01:00 Temperature 98.3 F Pulse Rate 83 78 Respiratory 16 Rate Blood Pressure 189/117 167/90 O2 Sat by Pulse 97 97 Oximetry Medical Decision Making - Lab Data Result diagrams: 03/17/22 23:30 03/17/22 23:30 Lab Results 03/17/22 03/17/22 03/17/22 Range/Units 23:30 23:30 23:30 WBC 17.9 H (3.8-10.6) k/uL RBC 5.21 (3.80-5.40) m/uL Hgb 14.3 (11.4-16.0) gm/dL Hct 46.6 H (34.0-46.0) % MCV 89.4 (80.0-100.0) fL MCH 27.4 (25.0-35.0) pg MCHC 30.7 L (31.0-37.0) g/dL RDW 14.7 (11.5-15.5) % Plt Count 236 (150-450) k/uL MPV 7.8 Neutrophils % 70 % Lymphocytes % 20 % Monocytes % 4 % Eosinophils % 4 % Basophils % 1 % Neutrophils # 12.5 H (1.3-7.7) k/uL Lymphocytes # 3.5 (1.0-4.8) k/uL Monocytes # 0.8 (0-1.0) k/uL Eosinophils # 0.7 (0-0.7) k/uL Basophils # 0.2 (0-0.2) k/uL PT 10.6 (9.0-12.0) sec INR 1.0 (<1.2) APTT 23.2 (22.0-30.0) sec D-Dimer 0.81 H (<0.60) mg/L FEU Sodium 138 (137-145) mmol/L Potassium 3.7 (3.5-5.1) mmol/L Chloride 107 (98-107) mmol/L Carbon Dioxide 22 (22-30) mmol/L Anion Gap 9 mmol/L BUN 15 (7-17) mg/dL Creatinine 1.06 H (0.52-1.04) mg/dL Est GFR (CKD-EPI)AfAm 72 (>60 ml/min/1.73 sqM) Est GFR (CKD-EPI)NonAf 62 (>60 ml/min/1.73 sqM) Glucose 118 H (74-99) mg/dL Calcium 8.3 L (8.4-10.2) mg/dL Magnesium 2.0 (1.6-2.3) mg/dL Total Bilirubin 0.2 (0.2-1.3) mg/dL AST 24 (14-36) U/L ALT 26 (4-34) U/L Alkaline Phosphatase 126 (38-126) U/L Troponin I (0.000-0.034) ng/mL NT-Pro-B Natriuret Pep pg/mL Total Protein 6.5 (6.3-8.2) g/dL Albumin 3.6 (3.5-5.0) g/dL 03/17/22 03/17/22 Range/Units 23:30 23:30 WBC (3.8-10.6) k/uL RBC (3.80-5.40) m/uL Hgb (11.4-16.0) gm/dL Hct (34.0-46.0) % MCV (80.0-100.0) fL MCH (25.0-35.0) pg MCHC (31.0-37.0) g/dL RDW (11.5-15.5) % Plt Count (150-450) k/uL MPV Neutrophils % % Lymphocytes % % Monocytes % % Eosinophils % % Basophils % % Neutrophils # (1.3-7.7) k/uL Lymphocytes # (1.0-4.8) k/uL Monocytes # (0-1.0) k/uL Eosinophils # (0-0.7) k/uL Basophils # (0-0.2) k/uL PT (9.0-12.0) sec INR (<1.2) APTT (22.0-30.0) sec D-Dimer (<0.60) mg/L FEU Sodium (137-145) mmol/L Potassium (3.5-5.1) mmol/L Chloride (98-107) mmol/L Carbon Dioxide (22-30) mmol/L Anion Gap mmol/L BUN (7-17) mg/dL Creatinine (0.52-1.04) mg/dL Est GFR (CKD-EPI)AfAm (>60 ml/min/1.73 sqM) Est GFR (CKD-EPI)NonAf (>60 ml/min/1.73 sqM) Glucose (74-99) mg/dL Calcium (8.4-10.2) mg/dL Magnesium (1.6-2.3) mg/dL Total Bilirubin (0.2-1.3) mg/dL AST (14-36) U/L ALT (4-34) U/L Alkaline Phosphatase (38-126) U/L Troponin I <0.012 (0.000-0.034) ng/mL NT-Pro-B Natriuret Pep 443 pg/mL Total Protein (6.3-8.2) g/dL Albumin (3.5-5.0) g/dL Disposition Clinical Impression: Chest pain Disposition: ADMITTED IP TO THIS [facility] Condition: Stable
--- NOTE | 2022-03-17 23:32 | XR ---
EXAMINATION TYPE: XR chest 2V DATE OF EXAM: 03/17/2022 COMPARISON: 11/11/2017 HISTORY: Chest pain TECHNIQUE: FINDINGS: Heart is normal. Lungs are clear of infiltrate. There are sternal wires. There are chest le ads. Costophrenic angles are clear. Bony thorax is intact. IMPRESSION: No active cardiopulmonary disease. No change.
[2022-03-17 23:45] LABS: Basophils # (A) 0.2 k/uL (0-0.2); Basophils % (A) 1 %; Eosinophils # (A) 0.7 k/uL (0-0.7); Eosinophils % (A) 4 %; HCT 46.6 % (34.0-46.0); HGB 14.3 gm/dL (11.4-16.0); Lymphocytes # (A) 3.5 k/uL (1.0-4.8); Lymphocytes % (A) 20 %; MCH 27.4 pg (25.0-35.0); MCHC 30.7 g/dL (31.0-37.0); MCV 89.4 fL (80.0-100.0); Mean Platelet Volume 7.8; Monocytes # (A) 0.8 k/uL (0-1.0); Monocytes % (A) 4 %; Neutrophils # (A) 12.5 k/uL (1.3-7.7); Neutrophils % (A) 70 %; Platelet Count 236 k/uL (150-450); RBC 5.21 m/uL (3.80-5.40); RDW 14.7 % (11.5-15.5); WBC 17.9 k/uL (3.8-10.6)
[2022-03-18] LABS: Albumin 3.6 g/dL (3.5-5.0); Calcium 8.3 mg/dL (8.4-10.2); Potassium 3.7 mmol/L (3.5-5.1); Total Bilirubin 0.2 mg/dL (0.2-1.3); Total Protein 6.5 g/dL (6.3-8.2)
[2022-03-18] MEDS ORDERED: NITROGLYCERIN SL TABS 0.4 MG TAB SUBLINGUAL PRN (00:09)
[2022-03-18 00:21] LABS: Partial Thromboplastin Time 23.2 sec (22.0-30.0); Prothrombin Time 10.6 sec (9.0-12.0)
--- NOTE | 2022-03-18 02:05 | CT ---
EXAMINATION TYPE: CT angio chest DATE OF EXAM: 03/18/2022 COMPARISON: None HISTORY: ELEVATED D DIMER CT DLP: 515 mGycm Automated exposure control for dose reduction was used. CONTRAST: Performed with IV Contrast, patient injected with 100 mL of Isovue 370. Images obtained from the thoracic inlet to the diaphragm with IV contrast. The lungs are clear of consolidation. No pleural effusion. Heart size is normal. No pericardial effus ion. There is no mediastinal adenopathy. Thoracic aorta is intact. No aneurysm or dissection. There is normal contrast opacification of the pulmonary arteries. No filling defect. The thoracic spine is intact. No compression fracture. Sternum is intact. There are sternal wires. Th e ribs are intact. IMPRESSION: Negative exam. No evidence of pulmonary embolism.
[2022-03-18] MEDS ORDERED: ACETAMINOPHEN TAB 500 MG TAB PO PRN (07:29)
[2022-03-18] MEDS ORDERED: METOPROLOL TARTRATE 50 MG TAB PO SCH (09:00)
[2022-03-18] MEDS ORDERED: LISINOPRIL-HCTZ 20-25 MG 1 EACH TAB PO SCH (09:00)
[2022-03-18] MEDS ORDERED: ALPRAZolam 0.25 MG TAB PO PRN (09:09)
[2022-03-18] MEDS ORDERED: ENOXAPARIN 100 MG/ML SYRINGE SQ SCH (10:00)
[2022-03-18] MEDS ORDERED: HYDROcodone/APAP 7.5-325MG 1 EACH TAB PO PRN (10:02)
--- NOTE | 2022-03-18 10:14 | P.CRDCN ---
History of Present Illness History of present illness: HISTORY OF PRESENT ILLNESS: This is a 46-year-old female with a past medical history significant for hypertension, GERD, obstructive sleep apnea with CPAP use, infective endocarditis with tissue valve in 2014, and redo aortic valve replacement with mechanical aortic valve in March 2020 as well as aortic root enlargement at the [facility]. Patient follows in the office with Dr. Silva. We have been asked to see the patient in consultation for chest pain. Patient examined at the bedside. 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 She states the pain was on the left side of her chest and radiated to her left shoulder. She reports feeling clammy at that time. She states that she receive Nitropaste in the emergency room which resolved her pain. She believes pain lasted for approximately 15-30 minutes. She denies any further chest pain since that time. She does report h aving a headache this morning. It is noted that the patient has attempted stress tests in the past including a Cardiolite stress test which was stopped due to significant only elevated blood pressure and runs of nonsustained ventricular tachycardia. The patient also underwent cardiac catheterization in 2020 with IVUS revealing only 10% stenosis of the left main which was thought to be secondary to vasospasm. No other significant coronary artery disease was noted. Patient's INR was noted to be 1.0 on admission. The patient reports that she may have forgotten to take a dose or 2 of her Coumadin over the weekend. * EKG reveals sinus mechanism with no signs of acute ischemia * Chest xray negative for acute process * Chest CTA: Negative for PE * Laboratory data: WBC 17.9. Hemoglobin 14.3. Platelet count 236. INR 1.0. Sodium 138. Potassium 3.7. BUN 15. Creatinine 1.06. Troponin negative 3. * Current home cardiac medications include Norvasc 5 mg at night, Coumadin 7.5 mg Thursday and 5 mg on a Thursday, metoprolol tartrate 50 mg twice a day, and Zestoretic 20-25mg daily * Most recent echocardiogram obtained in November 2020 revealed ejection fracti on 55%, mechanical aortic valve prosthetic, mild mitral regurgitation, mild tricuspid regurgitation * Cardiac catheterization performed in January 2021 revealed normal coronary arteries with 10% left main narrowing related to vasospasm. REVIEW OF SYSTEMS: At the time of my exam: CONSTITUTIONAL: Denies fever or chills. HEENT: Denies blurred vision, vision changes, or eye pain. Denies hemoptysis CARDIOVASCULAR: Denies chest pain. Denies orthopnea. Denies PND. Denies palpitations RESPIRATORY: Denies shortness of breath. GASTROINTESTINAL: Denies abdominal pain. Denies nausea or vomiting. HEMATOLOGIC: Denies bleeding disorders. GENITOURINARY: Denies any blood in urine. SKIN: Denies pruitis. Denies rash. PHYSICAL EXAM: VITAL SIGNS: Reviewed. GENERAL: Well-developed in no acute distress. HEENT: Head is normocephalic. Pupils are equal, round. Sclerae anicteric. Mucous membranes of the mouth are moist. Neck supple. No JVD or thyromegaly LUNGS: Respirations even and unlabored. Lungs essentially clear to auscultation bilaterally. HEART: Regular rate and rhythm. S1 and S2 heard. ABDOMEN: Soft. Nondistended. Nontender. EXTREMITIES: Normal range of motion. No clubbing or cyanosis. Peripheral pulses intact. No lower extremity edema NEUROLOGIC: Awake and alert. Oriented x 3. ASSESSMENT: Chest pain, troponins negative 3 History of infective endocarditis with aortic valve replacement in 2014 and redo aortic valve replacement with mechanical aortic valve and 2020 Subtherapeutic INR Obstructive sleep apnea Hypertension GERD PLAN: Obtain 2D echo to assess cardiac structure and function Dr. Simms spoke to patient regarding possible stress test versus cardiac cath. Patient chose cardiac cath. Spoke with Dr. Silva regarding patient who felt risk of re-doing cardiac cath outweighed the benefits at this time Patient is agreeable to continue with medical management for now and will follow up with Dr. Silva within one week Reinforced importance of Coumadin compliance with patient who verbalized understanding Patient instructed to take 7.5 mg of Coumadin March 18, March 19, and March 20 and then resume her regular Coumadin dosing Patient will be discharged home with 3 days of Lovenox as well. INR to be checked in 3-4 days at cardiology office. Further recommendations pending patient course Nurse practitioner note has been reviewed by physician. Signing provider agrees with the documented findings, assessment, and plan of care. Past Medical History Past Medical History: CVA/TIA, Hyperlipidemia, Hypertension, Sleep Apnea/CPAP/BIPAP Additional Past Medical History / Comment(s): "MRI SHOWS FEW STROKES;" C/O N/T, WEAKNESS LT ARM. LIGHTHEADEDNESS. History of Any Multi-Drug Resistant Organisms: None Reported Past Surgical History: Cardiac Valve Replacement Additional Past Surgical History / Comment(s): EXC WISDOM TEETH Past Anesthesia/Blood Transfusion Reactions: No Reported Reaction Past Psychological History: Anxiety Additional Psychological History / Comment(s): "HAVE ANXIETY ATTACKS". 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 No experience. No international travels. No animal exposures. Smoking Status: Former smoker Past Alcohol Use History: None Reported Additional Past Alcohol Use History / Comment(s): QUIT SMOKING MAY 2014,SMOKED 15 YRS Past Drug Use History: None Reported - Past Family History Mother Family Medical History: AFIB Additional Family Medical History / Comment(s): "BLOOD CLOT BEHIND HEART" Brother(s) Family Medical History: CVA/TIA Additional Family Medical History / Comment(s): HAD MULT STROKES IN LATE , LUPUS Medications and Allergies Home Medications Medication Instructions Recorded Confirmed Type Metoprolol Tartrate [Lopressor] 50 mg PO BID 11/11/17 03/18/22 History Lisinopril-Hctz 20-25 mg 1 tab PO DAILY 10/18/19 03/18/22 History [Zestoretic 20-25] Omeprazole 20 mg PO DAILY 02/01/21 03/18/22 History Warfarin [Coumadin] 5 mg PO SUTUTHSA 02/01/21 03/18/22 History Warfarin [Coumadin] 7.5 mg PO MOWEFR 02/01/21 03/18/22 History ALPRAZolam [Xanax] 0.25 mg PO BID PRN 03/18/22 03/18/22 History Enoxaparin [Lovenox] 100 mg SQ Q12H #6 each 03/18/22 Rx Liraglutide [Saxenda] 1.2 mg SQ DAILY 03/18/22 03/18/22 History Meloxicam [Mobic] 15 mg PO HS 03/18/22 03/18/22 History amLODIPine [Norvasc] 5 mg PO HS 03/18/22 03/18/22 History Allergies Allergy/AdvReac Type Severity Reaction Status Date / Time No Known Allergies Allergy Verified 06/07/22 07:26 Physical Exam Vitals: Vital Signs Temp Pulse Pulse Resp BP BP Pulse Ox 03/18/22 07:00 97.8 F 85 22 163/123 98 03/18/22 03:04 98.2 F 98 16 156/87 97 03/18/22 01:00 78 167/90 97 03/17/22 22:35 98.3 F 83 16 189/117 97 Intake and Output 03/17/22 03/18/22 03/18/22 22:59 06:59 14:59 Other: # Voids 1 Weight 95.254 kg 95.254 kg Results 03/17/22 23:30 03/17/22 23:30 Cardiac Enzymes 03/17/22 03/17/22 03/18/22 Range/Units 23:30 23:30 00:41 AST 24 (14-36) U/L Troponin I <0.012 <0.012 (0.000-0.034) ng/mL 03/18/22 Range/Units 02:54 AST (14-36) U/L Troponin I <0.012 (0.000-0.034) ng/mL Coagulation 03/17/22 Range/Units 23:30 PT 10.6 (9.0-12.0) sec APTT 23.2 (22.0-30.0) sec CBC 03/17/22 Range/Units 23:30 WBC 17.9 H (3.8-10.6) k/uL RBC 5.21 (3.80-5.40) m/uL Hgb 14.3 (11.4-16.0) gm/dL Hct 46.6 H (34.0-46.0) % Plt Count 236 (150-450) k/uL Comprehensive Metabolic Panel 03/17/22 Range/Units 23:30 Sodium 138 (137-145) mmol/L Potassium 3.7 (3.5-5.1) mmol/L Chloride 107 (98-107) mmol/L Carbon Dioxide 22 (22-30) mmol/L BUN 15 (7-17) mg/dL Creatinine 1.06 H (0.52-1.04) mg/dL Glucose 118 H (74-99) mg/dL Calcium 8.3 L (8.4-10.2) mg/dL AST 24 (14-36) U/L ALT 26 (4-34) U/L Alkaline Phosphatase 126 (38-126) U/L Total Protein 6.5 (6.3-8.2) g/dL Albumin 3.6 (3.5-5.0) g/dL Current Medications Generic Name Dose Route Start Last Admin Trade Name Freq PRN Reason Stop Dose Admin Acetaminophen 1,000 mg 03/18/22 07:29 03/18/22 07:38 Acetaminophen Tab 500 Mg Tab PO 1,000 mg Q6HR PRN Administration Fever and/ or Pain Aspirin 325 mg 03/19/22 09:00 Aspirin 325 Mg Tab PO DAILY [facility] Lisinopril/HCTZ 1 each 03/18/22 09:00 Lisinopril-Hctz 20-25 Mg 1 Each Tab PO DAILY [facility] Metoprolol Tartrate 50 mg 03/18/22 09:00 03/18/22 07:38 Metoprolol Tartrate 50 Mg Tab PO 50 mg BID LEONOR Administration Nitroglycerin 0.4 mg 03/18/22 00:09 Nitroglycerin Sl Tabs 0.4 Mg Tab SUBLINGUAL Q5M PRN Chest Pain Intake and Output 03/17/22 03/18/22 03/18/22 22:59 06:59 14:59 Other: # Voids 1 Weight 95.254 kg 95.254 kg 03/17/22 23:30 03/17/22 23:30
--- NOTE | 2022-03-18 12:00 | CA ---
Transthoracic Echo Report Name: Rachel Mcgee Age: 46 Gender: F : 1975 Exam Date: 03/18/2022 10:01 Exam Location: [facility] Ht (in): 63 Wt (lb): 210 Ordering Physician: Oralia Monroe Attending/Referring Phys: [id number], Mabel [employer] Marketing Coordinator Shana Arriaza, DALJIT Procedure CPT: Indications: LV function Cardiac Hx: hx of AOV replacement 2019 Technical Quality: Good Contrast 1: Total Dose (mL): Contrast 2: Total Dose (mL): MEASUREMENTS (Male / Female) Normal Values 2D ECHO LV Diastolic Diameter PLAX 3.6 cm 4.2 - 5.9 / 3.9 - 5.3 cm LV Systolic Diameter PLAX 2.8 cm IVS Diastolic Thickness 1.4 cm 0.6 - 1.0 / 0.6 - 0.9 cm LVPW Diastolic Thickness 1.5 cm 0.6 - 1.0 / 0.6 - 0.9 cm LV Relative Wall Thickness 0.8 RV Internal Dim ED PLAX 3.2 cm LA Systolic Diameter LX 4.0 cm 3.0 - 4.0 / 2.7 - 3.8 cm LA Volume 65.7 cm??? 18 - 58 / 22 - 52 cm??? M-MODE Aortic Root Diameter MM 3.5 cm MV E Point Septal Separation 1.1 cm DOPPLER AV Peak Velocity 283.3 cm/s AV Peak Gradient 32.1 mmHg AV Mean Velocity 189.7 cm/s AV Mean Gradient 16.5 mmHg AV Velocity Time Integral 58.6 cm LVOT Peak Velocity 88.0 cm/s LVOT Peak Gradient 3.1 mmHg LVOT Velocity Time Integral 20.6 cm MV Area PHT 2.9 cm??? Mitral E Point Velocity 126.3 cm/s Mitral A Point Velocity 101.6 cm/s Mitral E to A Ratio 1.2 MV Deceleration Time 261.0 ms MV E' Velocity 4.8 cm/s Mitral E to MV E' Ratio 26.3 TR Peak Velocity 236.2 cm/s TR Peak Gradient 22.3 mmHg Right Ventricular Systolic Press 26.9 mmHg FINDINGS Left Ventricle Left ventricular ejection fraction is estimated at 60-65 %. Left ventricular cavity size normal. Moderate concentric left ventricular hypertrophy. Right Ventricle Normal right ventricular size and function. Right ventricular systolic pressure within normal limits. Right Atrium Normal right atrial size. Left Atrium Mildly increased left atrial diameter. Moderately increased left atrial volume. Mildly increased left atrial area. No evidence for an atrial septal defect. Mitral Valve Mitral valve thickened. Mitral annular calcification. Aortic Valve Normal functioning mechanical AOV. Maximum gradient of 32 mean 17 mm/Hg. Trace aortic regurgitation. Tricuspid Valve Mild tricuspid regurgitation. Pulmonic Valve Trace pulmonic regurgitation. Pericardium Normal pericardium. Aorta Normal size aortic root and proximal ascending aorta. CONCLUSIONS #1. Normal left ventricle size with preserved LV function with moderate concentric left ventricle hypertrophy #2. Properly functioning prosthetic aortic valve. There peak gradient of 32 and mean of 17 #3. Mild tricuspid regurgitation Previewed by: Dr. Shawn Simms MD (Electronically Signed) Final Date: 18 March 2022 11:59
[2022-03-18 12:22] LABS: Glucose,Whole Blood 87 mg/dL (75-99)
[2022-03-18] MEDS ORDERED: INSULIN ASPART (NovoLOG) 100 UNIT/ML VIAL SQ SCH (12:30)
--- NOTE | 2022-03-18 15:11 | P.HPIM ---
History of Present Illness H&P Date: 03/18/22 Chief Complaint: chest pain This is a 46-year-old female who is admitted after experiencing sharp chest pain, substernal radiating to the left arm with associated diaphoresis when moving from sitting to standing at work. Currently she is chest pain free. She does have mild headache which she reports resolved with norco, did receive nitro paste in the [facility]. Medical history significant for Diabetes mellitus, CVA, dyslipidemia, hypertension, GERD, obstructive sleep apnea uses CPAP, coronary artery disease she also has a mechanical aortic valve currently anticoagulated with warfarin. INR 1.1, patient states she has missed a few doses of warfarin over the weekend. Most recent cardiac cath in January of last year which revealed left main 10% narrowing associated with vasospasm. Cardiology has been consulted, echocardiogram has been completed showing an EF of 60 to 65% with moderate left ventricular hypertrophy, mild triscupid regurgitation. Aortic valve is functioning properly. Chest xray negative, Chest CTA negative, no evidence for pulmonary embolism. EKG performed revealing sinus rhythm with PVC's, right bundle branch block. Heart rate 92, QT interval 461. Labs showing white count 17.9, hemoglobin 14.3, d-dimer 0.81, sodium is 138, potassium 3.7, albumin 15, creatinine 1.06, glucose is 118, calcium 8.3. Troponin level is negative x 3, BNP 443. REVIEW OF SYSTEMS: CONSTITUTIONAL: No fever, no malaise, no fatigue. HEENT: No recent visual problems or hearing problems. Denied any sore throat. CARDIOVASCULAR: No chest pain, orthopnea, PND, no palpitations, no syncope. PULMONARY: No shortness of breath, no cough, no hemoptysis. GASTROINTESTINAL: No diarrhea, no nausea, no vomiting, no abdominal pain. NEUROLOGICAL: No headaches, no weakness, no numbness. HEMATOLOGICAL: Denies any bleeding or petechiae. GENITOURINARY: Denies any burning micturition, frequency, or urgency. MUSCULOSKELETAL/RHEUMATOLOGICAL: Denies any joint pain, swelling, or any muscle pain. ENDOCRINE: Denies any polyuria or polydipsia. The rest of the 14-point review of systems is negative. PHYSICAL EXAMINATION: GENERAL: The patient is alert and oriented x3, not in any acute distress. Well developed, well nourished. HEENT: Pupils are round and equally reacting to light. EOMI. No scleral icterus. No conjunctival pallor. Normocephalic, atraumatic. No pharyngeal erythema. No thyromegaly. CARDIOVASCULAR: S1 and S2 present. No murmurs, rubs, or gallops. PULMONARY: Chest is clear to auscultation, no wheezing or crackles. ABDOMEN: Soft, nontender, nondistended, normoactive bowel sounds. No palpable organomegaly. MUSCULOSKELETAL: No joint swelling or deformity. EXTREMITIES: No cyanosis, clubbing, or pedal edema. NEUROLOGICAL: Gross neurological examination did not reveal any focal deficits. SKIN: No rashes. Assessment and Plan Assessment Chest pain with associated diaphoresis, rule out acute coronary syndrome History of mechanical aortic valve anticoagulated with coumadin Subtherapeutic INR Hypertension History dyslipidemia History of GERD History of sleep apnea with CPAP use Obesity Former nicotine use quit 8-9 years ago GI prophylaxis DVT prophylaxis Lovenox bridge with warfarin Plan 2D Echocardiogram Pending cardiology evaluation Resume home medications Lovenox bridge with INR monitoring Tylenol for headache The impression and plan of care has been dictated by Christiana Augustin, Nurse Practitioner as directed. Dr. Iza MD I have performed a history and physical examination and medical decision making of this patient, discussed the same with the dictator, and agree with the dictators assessment and plan as written, documented as a scribe. Based on total visit time, I have performed more than 50% of this visit. Past Medical History Past Medical History: CVA/TIA, Hyperlipidemia, Hypertension, Sleep Apnea/CPAP/BIPAP Additional Past Medical History / Comment(s): "MRI SHOWS FEW STROKES;" C/O N/T, WEAKNESS LT ARM. LIGHTHEADEDNESS. History of Any Multi-Drug Resistant Organisms: None Reported Past Surgical History: Cardiac Valve Replacement Additional Past Surgical History / Comment(s): EXC WISDOM TEETH Past Anesthesia/Blood Transfusion Reactions: No Reported Reaction Past Psychological History: Anxiety Additional Psychological History / Comment(s): "HAVE ANXIETY ATTACKS". 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 No experience. No international travels. No animal exposures. Smoking Status: Former smoker Past Alcohol Use History: None Reported Additional Past Alcohol Use History / Comment(s): QUIT SMOKING MAY 2014,SMOKED 15 YRS Past Drug Use History: None Reported - Past Family History Mother Family Medical History: AFIB Additional Family Medical History / Comment(s): "BLOOD CLOT BEHIND HEART" Brother(s) Family Medical History: CVA/TIA Additional Family Medical History / Comment(s): HAD MULT STROKES IN LATE , LUPUS Medications and Allergies Home Medications Medication Instructions Recorded Confirmed Type Metoprolol Tartrate [Lopressor] 50 mg PO BID 11/11/17 03/18/22 History Lisinopril-Hctz 20-25 mg 1 tab PO DAILY 10/18/19 03/18/22 History [Zestoretic 20-25] Omeprazole 20 mg PO DAILY 02/01/21 03/18/22 History Warfarin [Coumadin] 5 mg PO SUTUTHSA 02/01/21 03/18/22 History Warfarin [Coumadin] 7.5 mg PO MOWEFR 02/01/21 03/18/22 History ALPRAZolam [Xanax] 0.25 mg PO BID PRN 03/18/22 03/18/22 History Enoxaparin [Lovenox] 100 mg SQ Q12H #6 each 03/18/22 Rx Liraglutide [Saxenda] 1.2 mg SQ DAILY 03/18/22 03/18/22 History Meloxicam [Mobic] 15 mg PO HS 03/18/22 03/18/22 History amLODIPine [Norvasc] 5 mg PO HS 03/18/22 03/18/22 History Allergies Allergy/AdvReac Type Severity Reaction Status Date / Time No Known Allergies Allergy Verified 03/18/22 07:26 Physical Exam Vitals: Vital Signs Temp Pulse Pulse Resp BP BP Pulse Ox 03/18/22 09:01 156/93 03/18/22 07:00 97.8 F 85 22 163/123 98 03/18/22 03:04 98.2 F 98 16 156/87 97 03/18/22 01:00 78 167/90 97 03/17/22 22:35 98.3 F 83 16 189/117 97 Intake and Output 03/17/22 03/18/22 03/18/22 22:59 06:59 14:59 Other: # Voids 1 Weight 95.254 kg 95.254 kg Results CBC & Chem 7: 03/17/22 23:30 03/17/22 23:30 Labs: Abnormal Lab Results - Last 24 Hours (Table) 0603/17/22 03/17/22 Range/Units 23:30 23:30 23:30 WBC 17.9 H (3.8-10.6) k/uL Hct 46.6 H (34.0-46.0) % MCHC 30.7 L (31.0-37.0) g/dL Neutrophils # 12.5 H (1.3-7.7) k/uL D-Dimer 0.81 H (<0.60) mg/L FEU Creatinine 1.06 H (0.52-1.04) mg/dL Glucose 118 H (74-99) mg/dL Calcium 8.3 L (8.4-10.2) mg/dL Thrombosis Risk Factor Assmnt - Choose All That Apply Any of the Below Risk Factors Present?: Yes Each Factor Represents 1 point: Age 41-60 years Other Risk Factors: No Thrombosis Risk Factor Assessment Total Risk Factor Score: 1 Thrombosis Risk Factor Assessment Level: Low Risk Assessment and Plan Time with Patient: Less than 30
--- NOTE | 2022-03-18 15:31 | P.DS ---
Providers Date of admission: 03/18/22 00:09 Attending physician: Joanne Flores Consults: 03/18/22 00:09 Consult Physician Urgent Consulting Provider: Ismael Silva Consult Reason/Comments: chest pain Do you want consulting provider notified?: Yes Primary care physician: Ahmet Rodriguez MD Hospital Course: Chest pain with associated diaphoresis, cardiology felt risk outweighed benefit of re-cardiac catheterization History of mechanical aortic valve anticoagulated with coumadin Sub-therapeutic INR Hypertension History dyslipidemia History of GERD History of sleep apnea with CPAP use Obesity Former nicotine use quit 8-9 years ago Discharge Disposition Patient is discharged in stable condition and will follow up with Dr Silva in the office in 1 week. Patient had opted to undergo cardiac catheterization versus stress test however cardiology has decided to optimize medications and will see her in the office in 1 week. Recommended to follow up with primary care as well. Repeat INR in the cardiology office in 3 to 4 days. Patient will complete 3 days of lovenox bridge and is educated on adhering to warfarin scheduling. -Take 7.5mg Coumadin 03/18, 03/19, and 03/20 and then resume your normal dosing. Repeat labs in 2-3 days. Hospital Course This is a pleasant 46 year old female with medical history significant for infective cardititis status post manager mechanical aortic valve maintained on warfarin as well as hypertension, hyperlipidemia. She presented with chest pain and diaphoresis and received nitropaste in the [facility] and chest pain had resolved. She underwent echocardiogram which reveals properly functioning mechanical aortic valve, EF 60-65%. As above, cardiology has opted for medical management and will see patient in the office in 1 week. INR 1.0 on admission she does report missin g a few coumadin doses over the weekend and will discharge on lovenox. D-Dimer elevated 0.81, CTA negative for pulmonary embolism. Please see medical H & P for additional information. Please see medication reconciliation for a list of current medications. Thank you for allowing us to participate in the care of this patient. The impression and plan of care has been dictated by Christiana Augustin, Nurse Practitioner as directed. Dr. Iza MD I have performed a history and physical examination and medical decision making of this patient, discussed the same with the dictator, and agree with the dictators assessment and plan as written, documented as a scribe. Based on total visit time, I have performed more than 50% of this visit. Patient Condition at Discharge: Stable Plan - Discharge Summary Discharge Rx Participant: No New Discharge Prescriptions: New Enoxaparin [Lovenox] 100 mg SQ Q12H #6 each Nitroglycerin Sl Tabs [Nitrostat] 0.4 mg SUBLINGUAL Q5M PRN #10 tab PRN Reason: Chest Pain Continue Metoprolol Tartrate [Lopressor] 50 mg PO BID Lisinopril-Hctz 20-25 mg [Zestoretic 20-25] 1 tab PO DAILY Warfarin [Coumadin] 5 mg PO SUTUTHSA Warfarin [Coumadin] 7.5 mg PO MOWEFR Omeprazole 20 mg PO DAILY ALPRAZolam [Xanax] 0.25 mg PO BID PRN PRN Reason: Anxiety Liraglutide [Saxenda] 1.2 mg SQ DAILY amLODIPine [Norvasc] 5 mg PO HS Meloxicam [Mobic] 15 mg PO HS Discharge Medication List Metoprolol Tartrate [Lopressor] 50 mg PO BID 11/11/17 [History] Lisinopril-Hctz 20-25 mg [Zestoretic 20-25] 1 tab PO DAILY 10/18/19 [History] Omeprazole 20 mg PO DAILY 02/01/21 [History] Warfarin [Coumadin] 5 mg PO SUTUTHSA 02/01/21 [History] Warfarin [Coumadin] 7.5 mg PO MOWEFR 02/01/21 [History] ALPRAZolam [Xanax] 0.25 mg PO BID PRN 03/18/22 [History] Enoxaparin [Lovenox] 100 mg SQ Q12H #6 each 03/18/22 [Rx] Liraglutide [Saxenda] 1.2 mg SQ DAILY 03/18/22 [History] Meloxicam [Mobic] 15 mg PO HS 03/18/22 [History] Nitroglycerin Sl Tabs [Nitrostat] 0.4 mg SUBLINGUAL Q5M PRN #10 tab 03/18/22 [Rx] amLODIPine [Norvasc] 5 mg PO HS 03/18/22 [History] Follow up Appointment(s)/Referral(s): Ahmet Rodriguez MD [Primary Care Provider] - 1-2 days Ismael Silva DO [STAFF PHYSICIAN] - 1 Week Ambulatory/Diagnostic Orders: Prothrombin Time INR [LAB.AMB] Time Frame: 3 Days, Location: None Selected Activity/Diet/Wound Care/Special Instructions: Take 7.5mg Coumadin 03/18, 03/19, and 03/20 and then resume your normal dosing Have INR checked in the office in 4 days Discharge Disposition: HOME SELF-CARE
[2022-03-18 15:33] VITALS: BP 127/78; PULSE 74; RESP 20; TEMP 97.6
[2022-03-18] MEDS ORDERED: WARFARIN 7.5 MG TAB PO SCH (18:00)
[2022-03-18] MEDS ORDERED: amLODIPine 5 MG TAB PO SCH (21:00)
[2022-03-19] MEDS ORDERED: PANTOPRAZOLE 40 MG TABLET PO SCH (07:30)
[2022-03-19] MEDS ORDERED: ASPIRIN 325 MG TAB PO SCH (09:00)
== END 2022-03-18 16:35 | disposition home or self-care (01) ==
LOC: EC 22:16 → 6NMEDSUR 03-18 00:09
PROVIDERS: ADMIT Hospitalist; ATTEND Hospitalist
DX: R07.89 Other chest pain (principal); R61 Generalized hyperhidrosis; R79.89 Other specified abnormal findings of blood chemistry; R79.1 Abnormal coagulation profile; Z95.2 Presence of prosthetic heart valve; I45.10 Unspecified right bundle-branch block; I11.9 Hypertensive heart disease without heart failure; I07.1 Rheumatic tricuspid insufficiency; G47.33 Obstructive sleep apnea (adult) (pediatric); E11.9 Type 2 diabetes mellitus without complications; I25.10 Atherosclerotic heart disease of native coronary artery without angina pectoris; E78.5 Hyperlipidemia, unspecified; D72.829 Elevated white blood cell count, unspecified; K21.9 Gastro-esophageal reflux disease without esophagitis; R51.9 Headache, unspecified; F41.9 Anxiety disorder, unspecified; E66.9 Obesity, unspecified; Z68.37 Body mass index [BMI] 37.0-37.9, adult; Z79.01 Long term (current) use of anticoagulants; Z79.899 Other long term (current) drug therapy; Z79.1 Long term (current) use of non-steroidal anti-inflammatories (NSAID); Z98.818 Other dental procedure status; Z86.73 Personal history of transient ischemic attack (TIA), and cerebral infarction without residual deficits; Z87.891 Personal history of nicotine dependence; Z82.3 Family history of stroke; Z82.49 Family history of ischemic heart disease and other diseases of the circulatory system; Z84.89 Family history of other specified conditions
CPT/HCPCS: 96372; 96360; 96361; 99285; 36415; 93005; 93306; 85379; 83880; 80053; 83735; 84484 ×2; 85025; 85610; 85730; 71046; 71275; G0378; J1650; Q9967

== ENCOUNTER → 2022-03-22 | Outpatient (CLI) | payer MEDICAID ==
[2022-03-22 16:12] LABS: Basophils # (A) 0.08 X 10*3/uL (0.00-0.10); Basophils % (A) 0.5 %; Eosinophils # (A) 0.45 X 10*3/uL (0.04-0.35); HCT 47.9 % (37.2-46.3); HGB 15.5 g/dL (12.0-15.0); Immature Grans, Automated 0.3 %; Lymphocytes # (A) 2.77 X 10*3/uL (0.90-5.00); Lymphocytes % (A) 18.3 %; MCH 27.9 pg (27.0-32.0); MCHC 32.4 g/dL (32.0-37.0); MCV 86.2 fL (80.0-97.0); Mean Platelet Volume 11.1 fL (9.5-12.2); Monocytes # (A) 0.76 X 10*3/uL (0.20-1.00); NRBC Per 100 WBC 0 /100 WBCS (0.0-0.0); Neutrophils # (A) 11.01 X 10*3/uL (1.80-7.70); Neutrophils % (A) 72.9 %; Platelet Count 285 X 10*3/uL (140-440); RBC 5.56 X 10*6/uL (4.10-5.20); RDW 14.6 % (11.5-14.5); WBC 15.12 X 10*3/uL (4.50-10.00)
[2022-03-22 17:21] LABS: INR 1.61 (0.90-1.11); Prothrombin Time 17.8 sec (9.9-11.9)
== END | disposition home or self-care (01) ==
LOC: LABWHC1 11:10
PROVIDERS: ATTEND Nurse Practitioner Family
DX: D72.829 Elevated white blood cell count, unspecified (principal)
CPT/HCPCS: 36415; 85025; 85610

== ENCOUNTER 2022-07-25 21:25 | Inpatient (IN) | payer MEDICAID, OTHER ==
[2022-07-25] MEDS ORDERED: ASPIRIN 81 MG PO STA (21:41)
[2022-07-25] MEDS ORDERED: NITROGLYCERIN SL TABS 0.4 MG TAB SUBLINGUAL STA (21:41)
--- NOTE | 2022-07-25 21:46 | ED ---
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 She does note that there sometimes worse after eating. MD Complaint: chest pain -: days(s) Onset: during rest Pain Location: substernal, epigastric Pain Radiation: back Severity: moderate Quality: aching Consistency: constant Improves With: nothing Worsens With: eating Anginal Symptoms: nausea, dyspnea Treatments Prior to Arrival: none - Related Data Home Medications Medication Instructions Recorded Confirmed Metoprolol Tartrate [Lopressor] 50 mg PO BID 11/11/17 07/26/22 Lisinopril-Hctz 20-25 mg 1 tab PO DAILY 10/18/19 07/26/22 [Zestoretic 20-25] Omeprazole 20 mg PO DAILY 02/01/21 07/26/22 Warfarin [Coumadin] 5 mg PO SUMOTUWETHSA 02/01/21 07/26/22 Warfarin [Coumadin] 7.5 mg PO FR 02/01/21 07/26/22 Liraglutide [Saxenda] 1.2 mg SQ DAILY 03/18/22 07/26/22 Meloxicam [Mobic] 15 mg PO HS 03/18/22 07/26/22 amLODIPine [Norvasc] 5 mg PO DAILY 03/18/22 07/26/22 Escitalopram [Lexapro] 10 mg PO DAILY 07/26/22 07/26/22 SUMAtriptan succinate [Imitrex] 50 mg PO BID PRN 07/26/22 07/26/22 Previous Rx's Medication Instructions Recorded Nitroglycerin Sl Tabs [Nitrostat] 0.4 mg SUBLINGUAL Q5M PRN #10 tab 03/18/22 Allergies Allergy/AdvReac Type Severity Reaction Status Date / Time No Known Allergies Allergy Verified 07/26/22 12:22 Review of Systems ROS Statement: Those systems with pertinent positive or pertinent negative responses have been documented in the HPI. ROS Other: All systems not noted in ROS Statement are negative. Constitutional: Denies: fever, chills, weakness Respiratory: Denies: cough, dyspnea Cardiovascular: Reports: chest pain, dyspnea on exertion. Denies: palpitations, orthopnea, edema, syncope Gastrointestinal: Reports: abdominal pain, nausea. Denies: vomiting, diarrhea, constipation, melena, hematochezia Genitourinary: Denies: dysuria, hematuria Musculoskeletal: Denies: back pain Skin: Denies: rash Neurological: Denies: headache, weakness EKG Findings - EKG Results: EKG: interpreted by ERMMonica, sinus rhythm (rate 95 bpm) - Blocks, [place], Hypertrophy, ST Abn: AV and intraventricular conduction: right bundle branch block (fixed/intermi ttent, complete/incomplete), left anterior fascicular block Chamber hypertrophy or enlargement: left ventricular hypertrophy or enlargement (LVE) Past Medical History Past Medical History: CVA/TIA, Hyperlipidemia, Hypertension, Sleep Apnea/CPAP/BIPAP Additional Past Medical History / Comment(s): "MRI SHOWS FEW STROKES;" C/O N/T, WEAKNESS LT ARM. LIGHTHEADEDNESS. History of Any Multi-Drug Resistant Organisms: None Reported Past Surgical History: Cardiac Valve Replacement Additional Past Surgical History / Comment(s): EXC WISDOM TEETH Past Anesthesia/Blood Transfusion Reactions: No Reported Reaction Past Psychological History: Anxiety Past Alcohol Use History: None Reported - Past Family History Mother Family Medical History: AFIB Additional Family Medical History / Comment(s): "BLOOD CLOT BEHIND HEART" Brother(s) Family Medical History: CVA/TIA Additional Family Medical History / Comment(s): HAD MULT STROKES IN LATE 20'S, LUPUS General Exam General appearance: alert, in no apparent distress Head exam: Present: atraumatic, normocephalic Eye exam: Present: normal appearance. Absent: scleral icterus, conjunctival injection Neck exam: Present: normal inspection Respiratory exam: Present: normal lung sounds bilaterally. Absent: respiratory distress, wheezes, rales, rhonchi, stridor, chest wall tenderness, accessory muscle use, decreased breath sounds Cardiovascular Exam: Present: regular rate, normal rhythm, systolic murmur, clicks. Absent: diastolic murmur, rubs, gallop GI/Abdominal exam: Present: soft, tenderness (epigastric and right upper quadrant tenderness without rebound or guarding). Absent: distended, guarding, rebound, rigid, mass, pulsatile mass, hernia Extremities exam: Present: normal inspection, normal capillary refill. Absent: pedal edema, calf tenderness Back exam: Present: normal inspection. Absent: CVA tenderness (R), CVA tenderness (L) Neurological exam: Present: alert Skin exam: Present: warm, dry, intact, normal color. Absent: rash Course Vital Signs 07/25/22 07/25/22 07/26/22 21:27 22:29 01:36 Temperature 98.3 F 97.7 F Pulse Rate 96 Pulse Rate [ 90 Pulse Oximetery ] Respiratory 18 18 Rate Blood Pressure 143/95 Blood Pressure 125/82 [Right Arm] O2 Sat by Pulse 98 97 Oximetry 07/26/22 07/26/22 07/26/22 05:53 07:05 08:02 Temperature 98.1 F Pulse Rate 79 86 84 Pulse Rate [ Pulse Oximetery ] Respiratory 16 16 Rate Blood Pressure 151/99 161/90 Blood Pressure [Right Arm] O2 Sat by Pulse 97 98 Oximetry 07/26/22 12:51 Temperature 98.4 F Pulse Rate 82 Pulse Rate [ Pulse Oximetery ] Respiratory 18 Rate Blood Pressure 110/68 Blood Pressure [Right Arm] O2 Sat by Pulse 96 Oximetry Chest Pain MDM - MDM patient is 47-year-old woman status post mechanical aortic valve. she has been having some chest pains these are relieved here by nitroglycerin. We'll admit patient for serial cardiac enzymes and telemetry monitoring. Disposition Clinical Impression: Chest pain Disposition: ADMITTED IP TO THIS HOSP Condition: Good Is patient prescribed a controlled substance at d/c from ED?: No
[2022-07-25 22:40] LABS: Basophils # (A) 0.1 k/uL (0-0.2); Basophils % (A) 1 %; Eosinophils # (A) 0.7 k/uL (0-0.7); Eosinophils % (A) 4 %; HCT 48.1 % (34.0-46.0); HGB 16.3 gm/dL (11.4-16.0); Lymphocytes # (A) 3.5 k/uL (1.0-4.8); Lymphocytes % (A) 22 %; MCH 29.3 pg (25.0-35.0); MCHC 33.8 g/dL (31.0-37.0); MCV 86.6 fL (80.0-100.0); Mean Platelet Volume 8.7; Monocytes # (A) 0.7 k/uL (0-1.0); Monocytes % (A) 4 %; Neutrophils # (A) 10.8 k/uL (1.3-7.7); Neutrophils % (A) 67 %; Platelet Count 193 k/uL (150-450); RBC 5.55 m/uL (3.80-5.40); RDW 14.7 % (11.5-15.5); WBC 16.1 k/uL (3.8-10.6)
--- NOTE | 2022-07-25 22:48 | XR ---
EXAMINATION TYPE: XR chest 2V DATE OF EXAM: 07/25/2022 COMPARISON: 03/17/2022 HISTORY: Chest pain TECHNIQUE: 2 views FINDINGS: There is no heart failure nor confluent pneumonic infiltrate. Costophrenic angles are clear . There are sternal wires. There are chest leads. IMPRESSION: No active cardiopulmonary disease. No change.
[2022-07-25 22:58] LABS: Calcium 9.1 mg/dL (8.4-10.2); Potassium 3.5 mmol/L (3.5-5.1); Total Bilirubin 0.5 mg/dL (0.2-1.3)
[2022-07-25 23:01] LABS: INR 1.9 (<1.2); Partial Thromboplastin Time 29.6 sec (22.0-30.0); Prothrombin Time 19.3 sec (9.0-12.0)
--- NOTE | 2022-07-25 23:07 | US ---
EXAMINATION TYPE: US gallbladder DATE OF EXAM: 07/25/2022 COMPARISON: NONE CLINICAL HISTORY: pain. chest pain TECHNIQUE: Multiple sonographic images of the right upper quadrant are obtained. FINDINGS: EXAM MEASUREMENTS: Liver Length: 16.7 cm Gallbladder Wall: 0.18 cm CBD: 0.32 cm Right Kidney: Not seen PER DIEM NOTES: Pancreas: Obscured by bowel gas Liver: Increased attenuation, decreased visualization of vessels suggestive of fatty infiltrate Gallbladder: wnl Evidence for sonographic De Luna's sign: No CBD: wnl Right Kidney: Images taken questioning the right kidney. CTA done 03/18/22 and rt kidney is not presen t. IMPRESSION: No gallstones or dilated ducts. No focal liver defect.
[2022-07-26] MEDS ORDERED: NITROGLYCERIN SL TABS 0.4 MG TAB SUBLINGUAL STA (00:29)
[2022-07-26] MEDS ORDERED: NITROGLYCERIN SL TABS 0.4 MG TAB SUBLINGUAL PRN (01:21)
[2022-07-26] MEDS ORDERED: WARFARIN 2.5 MG TAB PO SCH (01:30)
[2022-07-26] MEDS: NITROGLYCERIN OINT 1 INCH/GM PACKET TOPICAL SCH ×4 (07:05→23:55)
[2022-07-26] MEDS: LISINOPRIL-HCTZ 20-25 MG 1 EACH TAB PO SCH (08:18)
[2022-07-26] MEDS: METOPROLOL TARTRATE 50 MG TAB PO SCH ×2 (08:18→20:28)
[2022-07-26] MEDS: PANTOPRAZOLE 40 MG TABLET PO SCH (08:19)
[2022-07-26] MEDS ORDERED: HEPARIN SODIUM 1,000 UN/ML (10ML VL) IV ONE (09:21)
[2022-07-26] MEDS: HEPARIN SOD,PORK IN 0.45% NACL 25,000 UNIT in 0.45% NACL 1 250ML.BAG IV SCH (10:10)
[2022-07-26] MEDS ORDERED: POTASSIUM CHLORIDE ER 20 MEQ TAB.ER PO STA (11:13)
[2022-07-26] MEDS ORDERED: FAMOTIDINE 20 MG TAB PO SCH (11:15)
--- NOTE | 2022-07-26 11:32 | P.CRDCN ---
History of Present Illness Consult date: 07/26/22 Consult reason: chest pain History of present illness: The patient is a 47-year-old female who follows in the office with Dr. Silva. She presented to the emergency room with midsternal chest pressure and shortness of breath. She states her symptoms have been getting progressively worse over the last several days. Initially the chest discomfort and shortness of breath was only with exertional activity, but she is currently having the brodie n at the time of my examination. The patient also reports having chronic GI upset and diarrhea. No recent upper respiratory tract infection or changes in her medication regimen. 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 No cough or expectoration. No diaphoresis. Patient denies headache, dizziness, blurred vision, double vision. Chronic stomach discomfort. No nausea, vomiting. Positive for diarrhea. No hematochezia. No hematemesis. Denies any black stools or blood in his stools. Denies dysuria or hematuria. No muscle weakness or numbness. Positive for chest pressure. Positive for shortness of breath. PHYSICAL EXAMINATION: This is a 47-year-old female in no apparent distress at the time of my examination. HEENT: Head is atraumatic, normocephalic. Pupils are equal, round. Sclerae anicteric. Conjunctivae are clear. Mucous membranes of the mouth are moist. Neck is supple. There is no jugular venous distention. No carotid bruit is heard. CHEST EXAMINATION: Lungs are clear to auscultation. No chest wall tenderness is noted on palpation or with deep breathing. HEART EXAMINATION: Heart regular rate and rhythm. S1, S2 heard. Systolic ejection murmur. No gallops or rub. ABDOMEN: Soft, nontender. Bowel sounds are heard. No organomegaly noted. EXTREMITIES: 2+ peripheral pulses with no evidence of peripheral edema and no calf tenderness noted. NEUROLOGIC EXAMINATION: Patient is awake, alert and oriented x3. FINAL ASSESSMENT AND PLAN: Chest discomfort, not indicative of ACS Shortness of breath History of mechanical aortic valve replacement Subtherapeutic INR, goal 2.5-3.5 Hypertension, uncontrolled with home readings History of coronary spasm with normal coronary arteries in 2020 PLAN: Increase amlodipine to 10 mg daily Resume warfarin with INR goal between 2.5-3.5 Heparin drip to bridge to therapeutic INR Echocardiogram and Doppler study Further recommendations be based on clinical course I am dictating on behalf of Dr Obey Abarca's history/physical and assessm ent/plan. Past Medical History Past Medical History: CVA/TIA, Hyperlipidemia, Hypertension, Sleep Apnea/CPAP/BIPAP Additional Past Medical History / Comment(s): "MRI SHOWS FEW STROKES;" C/O N/T, WEAKNESS LT ARM. LIGHTHEADEDNESS. History of Any Multi-Drug Resistant Organisms: None Reported Past Surgical History: Cardiac Valve Replacement Additional Past Surgical History / Comment(s): EXC WISDOM TEETH Past Anesthesia/Blood Transfusion Reactions: No Reported Reaction Past Psychological History: Anxiety Past Alcohol Use History: None Reported - Past Family History Mother Family Medical History: AFIB Additional Family Medical History / Comment(s): "BLOOD CLOT BEHIND HEART" Brother(s) Family Medical History: CVA/TIA Additional Family Medical History / Comment(s): HAD MULT STROKES IN LATE , LUPUS Medications and Allergies Home Medications Medication Instructions Recorded Confirmed Type Metoprolol Tartrate [Lopressor] 50 mg PO BID 11/11/17 03/18/22 History Lisinopril-Hctz 20-25 mg 1 tab PO DAILY 10/18/19 03/18/22 History [Zestoretic 20-25] Omeprazole 20 mg PO DAILY 02/01/21 03/18/22 History Warfarin [Coumadin] 5 mg PO SUTUTHSA 02/01/21 03/18/22 History Warfarin [Coumadin] 7.5 mg PO MOWEFR 02/01/21 03/18/22 History ALPRAZolam [Xanax] 0.25 mg PO BID PRN 03/18/22 03/18/22 History Enoxaparin [Lovenox] 100 mg SQ Q12H #6 each 03/18/22 Rx Liraglutide [Saxenda] 1.2 mg SQ DAILY 03/18/22 03/18/22 History Meloxicam [Mobic] 15 mg PO HS 03/18/22 03/18/22 History Nitroglycerin Sl Tabs [Nitrostat] 0.4 mg SUBLINGUAL Q5M PRN #10 tab 03/18/22 Rx amLODIPine [Norvasc] 5 mg PO HS 03/18/22 03/18/22 History Allergies Allergy/AdvReac Type Severity Reaction Status Date / Time No Known Allergies Allergy Verified 03/18/22 07:26 Physical Exam Vitals: Vital Signs Temp Pulse Resp BP Pulse Ox 07/26/22 08:02 98.1 F 84 16 161/90 98 07/26/22 07:05 86 151/99 07/26/22 05:53 79 16 97 07/25/22 22:29 98.3 F 07/25/22 21:27 96 18 143/95 98 Intake and Output 07/25/22 07/26/22 07/26/22 22:59 06:59 14:59 Other: Weight 92.533 kg Results 07/25/22 22:20 07/25/22 22:20 Cardiac Enzymes 07/25/22 07/25/22 07/26/22 Range/Units 22:20 22:20 03:54 AST 30 (14-36) U/L Troponin I 0.014 0.015 (0.000-0.034) ng/mL 07/26/22 Range/Units 07:56 AST (14-36) U/L Troponin I 0.014 (0.000-0.034) ng/mL Coagulation 07/25/22 Range/Units 22:20 PT 19.3 H (9.0-12.0) sec APTT 29.6 (22.0-30.0) sec CBC 07/25/22 Range/Units 22:20 WBC 16.1 H (3.8-10.6) k/uL RBC 5.55 H (3.80-5.40) m/uL Hgb 16.3 H (11.4-16.0) gm/dL Hct 48.1 H (34.0-46.0) % Plt Count 193 (150-450) k/uL Comprehensive Metabolic Panel 07/25/22 Range/Units 22:20 Sodium 135 L (137-145) mmol/L Potassium 3.5 (3.5-5.1) mmol/L Chloride 96 L (98-107) mmol/L Carbon Dioxide 27 (22-30) mmol/L BUN 24 H (7-17) mg/dL Creatinine 1.16 H (0.52-1.04) mg/dL Glucose 124 H (74-99) mg/dL Calcium 9.1 (8.4-10.2) mg/dL AST 30 (14-36) U/L ALT 32 (4-34) U/L Alkaline Phosphatase 165 H (38-126) U/L Total Protein 7.0 (6.3-8.2) g/dL Albumin 4.0 (3.5-5.0) g/dL Current Medications Generic Name Dose Route Start Last Admin Trade Name Freq PRN Reason Stop Dose Admin Alprazolam 0.25 mg 07/26/22 01:23 Alprazolam 0.25 Mg Tab PO BID PRN Anxiety Amlodipine Besylate 5 mg 07/26/22 21:00 Amlodipine 5 Mg Tab PO HS [facility] Lisinopril/HCTZ 1 each 07/26/22 09:00 07/26/22 08:18 Lisinopril-Hctz 20-25 Mg 1 Each Tab PO 1 each DAILY [facility] Administration Metoprolol Tartrate 50 mg 07/26/22 09:00 07/26/22 08:18 Metoprolol Tartrate 50 Mg Tab PO 50 mg BID [facility] Administration Miscellaneous Information 0 each 07/26/22 02:46 Warfarin Per Pharmacy MISCELLANE DIRECTED PRN Per Protocol Nitroglycerin 0.4 mg 07/26/22 01:21 Nitroglycerin Sl Tabs 0.4 Mg Tab SUBLINGUAL Q5M PRN Chest Pain Nitroglycerin 1 inch 07/26/22 06:00 07/26/22 07:05 Nitroglycerin Oint 1 Inch/Gm Packet TOPICAL Not Given Q6HR [facility] Pantoprazole Sodium 40 mg 07/26/22 09:00 07/26/22 08:19 Pantoprazole 40 Mg Tablet PO 40 mg DAILY [facility] Administration Warfarin Sodium 7.5 mg 07/26/22 18:00 Warfarin 7.5 Mg Tab PO 07/26/22 18:01 ONCE ONE Warfarin Sodium 6 mg 07/27/22 18:00 Warfarin 3 Mg Tab PO [id number] [facility] Warfarin Sodium 7.5 mg 08/01/22 18:00 07/26/22 08:19 Warfarin 7.5 Mg Tab PO 7.5 mg [id number]@1800 [facility] Administration Intake and Output 07/25/22 07/26/22 07/26/22 22:59 06:59 14:59 Other: Weight 92.533 kg 07/25/22 22:20 07/25/22 22:20
[2022-07-26 15:34] LABS: Basophils # (A) 0.1 k/uL (0-0.2); Basophils % (A) 1 %; Eosinophils # (A) 0.5 k/uL (0-0.7); Eosinophils % (A) 4 %; HCT 46.4 % (34.0-46.0); HGB 15.6 gm/dL (11.4-16.0); Lymphocytes # (A) 2.9 k/uL (1.0-4.8); Lymphocytes % (A) 22 %; MCH 29.3 pg (25.0-35.0); MCHC 33.6 g/dL (31.0-37.0); MCV 87.4 fL (80.0-100.0); Mean Platelet Volume 8.6; Monocytes # (A) 0.5 k/uL (0-1.0); Monocytes % (A) 4 %; Neutrophils # (A) 8.8 k/uL (1.3-7.7); Neutrophils % (A) 67 %; Platelet Count 209 k/uL (150-450); RBC 5.31 m/uL (3.80-5.40); RDW 14.6 % (11.5-15.5); WBC 13.1 k/uL (3.8-10.6)
[2022-07-26 16:24] LABS: Appearance,Urine Clear (Clear); Bilirubin,Urine Negative (Negative); Blood,Urine Negative (Negative); Color,Urine Light Yellow; Glucose,Urine (UA) Negative (Negative); Ketones,Urine Negative (Negative); Leukocyte Esterase,Urine Negative (Negative); Nitrite,Urine Negative (Negative); PH, Urine 6.5 (5.0-8.0); Protein,Urine Negative (Negative); Specific Gravity,Urine 1.015 (1.001-1.035); Urobilinogen,Urine <2.0 mg/dL (<2.0)
[2022-07-26] MEDS ORDERED: WARFARIN 7.5 MG TAB PO ONE (18:00)
[2022-07-26] MEDS: ALPRAZolam 0.25 MG TAB PO PRN (18:08)
--- NOTE | 2022-07-26 18:45 | P.HPIM ---
History of Present Illness H&P Date: 07/26/22 Chief Complaint: Chest pain Patient is a 47-year-old female with a known history of hypertension, hyperlipidemia, history of CVA/TIA with left arm weakness/numbness, obstructive sleep apnea, history of aortic valve replacement due to infective endocarditis and anxiety presents to ER with complaints of chest pain. Patient states that she has been having on and off chest pain, mid retrosternal and increasing numbness of the left arm than usual. Associated with mild shortness of breath. No nausea vomiting. [place] some dizziness. Otherwise no headache. No leg swelling. Denied any recent illnesses. Patient has been afebrile. No cough or sputum production. Denies any dysuria or hematuria. Chest x-ray showed no acute cardiopulmonary process EKG showed sinus rhythm with right retinal branch block. Ultrasound of the gallbladder showed no gallstones or dilated ducts. No focal liver defect. Laboratory data showed WBC 16.1 hemoglobin 16.3 and platelets 193 D-dimer is 0.51 Sodium 134 potassium 3.5 chloride 96 BUN 24 and creatinine 1.16 Alk phos 165 AST 30 and ALT 32 and troponin x3 negative proBNP 331 and lipase level is 246 Urinalysis is negative for infection. Review of Systems Constitutional: Patient denies any fever or chills . no Generalized weakness. Abdomen: Patient denied any nausea or vomiting or abd. pain Cardiovascular: Patient does complain of chest pain associated shortness of breath. No leg swelling. No palpitations. Respiratory: patient denied any cough . no sputum production. Positive for shortness of breath Neurologic: Patient denied any numbness or tingling headache. Musculoskeletal: Patient denies any complaints of joint swelling or deformity. Skin: Negative Psychiatric: Negative Endocrine: No heat or cold intolerance. No recent weight gain. Genitourinary: No dysuria or hematuria. All other 14 point ROS negative except the above Past Medical History Past Medical History: CVA/TIA, Hyperlipidemia, Hypertension, Sleep Apnea/CPAP/BIPAP Additional Past Medical History / Comment(s): "MRI SHOWS FEW STROKES;" C/O N/T, WEAKNESS LT ARM. LIGHTHEADEDNESS. History of Any Multi-Drug Resistant Organisms: None Reported Past Surgical History: Cardiac Valve Replacement Additional Past Surgical History / Comment(s): EXC WISDOM TEETH Past Anesthesia/Blood Transfusion Reactions: No Reported Reaction Past Psychological History: Anxiety Past Alcohol Use History: None Reported - Past Family History Mother Family Medical History: AFIB Additional Family Medical History / Comment(s): "BLOOD CLOT BEHIND HEART" Brother(s) Family Medical History: CVA/TIA Additional Family Medical History / Comment(s): HAD MULT STROKES IN LATE , LUPUS Medications and Allergies Home Medications Medication Instructions Recorded Confirmed Type Metoprolol Tartrate [Lopressor] 50 mg PO BID 11/11/17 07/26/22 History Lisinopril-Hctz 20-25 mg 1 tab PO DAILY 10/18/19 07/26/22 History [Zestoretic 20-25] Omeprazole 20 mg PO DAILY 02/01/21 07/26/22 History Warfarin [Coumadin] 5 mg PO SUMOTUWETHSA 02/01/21 07/26/22 History Warfarin [Coumadin] 7.5 mg PO FR 02/01/21 07/26/22 History Liraglutide [Saxenda] 1.2 mg SQ DAILY 03/18/22 07/26/22 History Meloxicam [Mobic] 15 mg PO HS 03/18/22 07/26/22 History Nitroglycerin Sl Tabs [Nitrostat] 0.4 mg SUBLINGUAL Q5M PRN #10 tab 03/18/22 07/26/22 Rx amLODIPine [Norvasc] 5 mg PO DAILY 03/18/22 07/26/22 History Escitalopram [Lexapro] 10 mg PO DAILY 07/26/22 07/26/22 History SUMAtriptan succinate [Imitrex] 50 mg PO BID PRN 07/26/22 07/26/22 History Allergies Allergy/AdvReac Type Severity Reaction Status Date / Time No Known Allergies Allergy Verified 07/26/22 12:22 Physical Exam Vitals: Vital Signs Temp Pulse Resp BP Pulse Ox 07/26/22 08:02 98.1 F 84 16 161/90 98 07/26/22 07:05 86 151/99 07/26/22 05:53 79 16 97 07/25/22 22:29 98.3 F 07/25/22 21:27 96 18 143/95 98 Intake and Output 07/25/22 07/26/22 07/26/22 22:59 06:59 14:59 Other: Weight 92.533 kg PHYSICAL EXAMINATION: Patient is lying in the bed comfortably, no acute distress, awake alert and oriented.. HEENT: Normocephalic. Neck is supple. Pupils reactive. Nostrils clear. Oral cavity is moist. Neck reveals no JVD, carotid bruits, or thyromegaly. CHEST EXAMINATION: Trachea is central. Symmetrical expansion. Lung ballard clear to auscultation and percussion. Bibasilar diminished sounds. CARDIAC: Normal S1, S2 with no gallops. systolic murmur ABDOMEN: Soft. Bowel sounds present. Nontender. No organomegaly. No abdominal bruits. Extremities: reveal no edema. No clubbing or cyanosis Neurologically awake, alert, oriented x3 with well-coordinated movements. No focal deficits noted Skin: No rash or skin lesions. Psychiatric: Coperative. Nonsuicidal, Musculoskeletal: No joint swelling or deformity. Normal range of motion. Results CBC & Chem 7: 07/26/22 15:17 07/25/22 22:20 Labs: Abnormal Lab Results - Last 24 Hours (Table) 07/25/22 07/25/22 07/25/22 Range/Units 22:20 22:20 22:20 WBC 16.1 H (3.8-10.6) k/uL RBC 5.55 H (3.80-5.40) m/uL Hgb 16.3 H (11.4-16.0) gm/dL Hct 48.1 H (34.0-46.0) % Neutrophils # 10.8 H (1.3-7.7) k/uL PT 19.3 H (9.0-12.0) sec INR 1.9 H (<1.2) Sodium 135 L (137-145) mmol/L Chloride 96 L (98-107) mmol/L BUN 24 H (7-17) mg/dL Creatinine 1.16 H (0.52-1.04) mg/dL Glucose 124 H (74-99) mg/dL Alkaline Phosphatase 165 H (38-126) U/L Thrombosis Risk Factor Assmnt - DVT/VTE Prophylaxis DVT/VTE Prophylaxis: Pharmacologic Prophylaxis ordered Assessment and Plan Assessment: Atypical chest pain. Rule out ACS. History of aortic valve replacement due to IE/mechanical valve. INR subtherapeutic 1.9. Goal 2.5-3.5 Leukocytosis likely reactive. Trending down. Follow-up procalcitonin level. Prior history of infective endocarditis about 9 years ago Coronary artery disease with history of cardiac catheterization. Normal coronaries. History of CVA with left-sided residual weakness and numbness Hypertension Hyperlipidemia Obstructive sleep apnea Anxiety Obesity with a BMI 36.1 DVT prophylaxis patient is already on warfarin Plan: Patient will be current on telemetry monitoring. Serial EKG and troponin x3 negative. INR is subject level. Patient was started on heparin until patient achieves therapeutic INR. Goal 2.5-3.5. INR 1.9 on admission. Cardiology is on board. 2D echocardiogram was ordered. Continue to follow closely. Time with Patient: Greater than 30
[2022-07-26] MEDS: ACETAMINOPHEN TAB 325 MG TAB PO PRN (20:28)
[2022-07-26] MEDS ORDERED: amLODIPine 5 MG TAB PO SCH (21:00)
[2022-07-26] MEDS: amLODIPine 10 MG TAB PO SCH (23:55)
[2022-07-27] MEDS: amLODIPine 10 MG TAB PO SCH ×2 (00:16→15:01)
[2022-07-27] MEDS: NITROGLYCERIN OINT 1 INCH/GM PACKET TOPICAL SCH ×4 (05:57→23:24)
[2022-07-27 07:17] LABS: INR 2.1 (<1.2); Partial Thromboplastin Time 49.7 sec (22.0-30.0); Prothrombin Time 21.2 sec (9.0-12.0)
[2022-07-27 07:20] LABS: Basophils # (A) 0.2 k/uL (0-0.2); Basophils % (A) 1 %; Eosinophils # (A) 0.6 k/uL (0-0.7); Eosinophils % (A) 5 %; HCT 44.4 % (34.0-46.0); HGB 15.1 gm/dL (11.4-16.0); Hypochromasia Slight; Lymphocytes # (A) 3.3 k/uL (1.0-4.8); Lymphocytes % (A) 28 %; MCH 30.6 pg (25.0-35.0); MCHC 33.9 g/dL (31.0-37.0); MCV 90.3 fL (80.0-100.0); Mean Platelet Volume 9.2; Monocytes # (A) 0.8 k/uL (0-1.0); Monocytes % (A) 7 %; Neutrophils # (A) 6.8 k/uL (1.3-7.7); Neutrophils % (A) 57 %; Platelet Count 167 k/uL (150-450); RBC 4.92 m/uL (3.80-5.40); RDW 14.6 % (11.5-15.5)
[2022-07-27 08:57] LABS: African American GFR (CKD) 90 (>60 ml/min/1.73 sqM); Anion Gap 6 mmol/L; Blood Urea Nitrogen 22 mg/dL (7-17); Calcium 8.2 mg/dL (8.4-10.2); Carbon Dioxide 24 mmol/L (22-30); Chloride 101 mmol/L (98-107); Glucose 175 mg/dL (74-99); Non-African American GFR(CKD) 78 (>60 ml/min/1.73 sqM); Sodium 131 mmol/L (137-145)
[2022-07-27 09:00] LABS: Potassium 4.2 mmol/L (3.5-5.1)
[2022-07-27] MEDS ORDERED: ASPIRIN 325 MG TAB PO SCH (09:00)
[2022-07-27] MEDS: PANTOPRAZOLE 40 MG TABLET PO SCH (09:08)
[2022-07-27] MEDS: METOPROLOL TARTRATE 50 MG TAB PO SCH ×2 (09:08→19:34)
[2022-07-27] MEDS: LISINOPRIL-HCTZ 20-25 MG 1 EACH TAB PO SCH (09:08)
[2022-07-27 11:04] LABS: Chol/HDL Ratio 3.43 Ratio; LDL Cholesterol,Calculated 82.5 mg/dL (0.0-131.0)
[2022-07-27] MEDS: HEPARIN SOD,PORK IN 0.45% NACL 25,000 UNIT in 0.45% NACL 1 250ML.BAG IV SCH (11:30)
--- NOTE | 2022-07-27 11:48 | P.PN ---
Subjective Progress Note Date: 07/27/22 This is Harmeet Chavez NP, I'm dictating on behalf of Dr. Abarca's H&P and A&P. Patient was interviewed and examined. Patient is a pleasant 47-year-old female who initially presented to the hospital with midsternal chest pain. Patient states today she feels about the same as yesterday. We increased her amlodipine to 10 mg daily, and this does appear to help with her blood pressure. Warfarin was resumed yesterday, today her INR is 2.1. She continues on a heparin drip to bridge until her INR is therapeutic. Patient has an echocardiogram and Doppler study ordered, results pending. GENERAL: Well-appearing, well-nourished and in no acute distress. NECK: Supple without JVD or thyromegaly. LUNGS: Breath sounds clear to auscultation bilaterally. Respiration equal and unlabored. No wheezes, rales or rhonchi. HEART: Regular rate and rhythm, aortic systolic ejection murmur noted without rubs or gallops. S1 and S2 heard. EXTREMITIES: Normal range of motion, no edema. No clubbing or cyanosis. Peripheral pulses intact and strong. VITALS: Pulse 78, respirations 18, blood pressure 108/73, O2 saturation 99% on room air TELEMETRY: Normal sinus rhythm LABS: White count 12.0, hemoglobin 15.1, platelet 167, sodium 131, potassium 4.2, B1 22, creatinine 0.88, calcium 8.2, triglycerides 193, cholesterol 171, LDL 82.5, HDL 49.9 IMPRESSION: Chest discomfort, not indicative of ACS Shortness of breath History mechanical valve replacement Subtherapeutic INR, goal 2.5-3.5 Hypertension, controlled with amlodipine History of coronary spasm with normal coronary arteries in 2020 PLAN: Continue amlodipine 10 mg daily, given at noon. Continue warfarin as ordered until INR is between 2.5 and 3.5. Once INR reaches 2.5 or greater, heparin can be stopped. Further recommendations based on the patient's clinical course. Objective - Vital Signs Vital signs: Vital Signs Temp 98 F 07/26/22 20:00 Pulse 78 07/27/22 04:07 Resp 18 07/27/22 04:07 BP 108/73 07/27/22 04:07 Pulse Ox 99 07/27/22 04:07 FiO2 Intake & Output 07/26/22 07/27/22 07/27/22 18:59 06:59 18:59 Intake Total 118 Balance 118 Intake: Oral 118 Other: Voiding Method Toilet # Voids 1 - Labs CBC & Chem 7: 07/27/22 06:20 07/27/22 08:18 Labs: Abnormal Lab Results - Last 24 Hours (Table) 07/26/22 07/26/22 07/27/22 Range/Units 15:17 15:17 06:20 WBC 13.1 H (3.8-10.6) k/uL Hct 46.4 H (34.0-46.0) % Neutrophils # 8.8 H (1.3-7.7) k/uL PT 21.2 H (9.0-12.0) sec INR 2.1 H (<1.2) APTT 44.9 H 49.7 H (22.0-30.0) sec Sodium (137-145) mmol/L BUN (7-17) mg/dL Glucose (74-99) mg/dL Calcium (8.4-10.2) mg/dL Triglycerides (0.00-149.00) mg/dL 07/27/22 07/27/22 Range/Units 06:20 08:18 WBC 12.0 H (3.8-10.6) k/uL Hct (34.0-46.0) % Neutrophils # (1.3-7.7) k/uL PT (9.0-12.0) sec INR (<1.2) APTT (22.0-30.0) sec Sodium 131 L (137-145) mmol/L BUN 22 H (7-17) mg/dL Glucose 175 H (74-99) mg/dL Calcium 8.2 L (8.4-10.2) mg/dL Triglycerides 193.00 H (0.00-149.00) mg/dL
[2022-07-27] MEDS: ESCITALOPRAM 10 MG TAB PO SCH (15:01)
[2022-07-27] MEDS ORDERED: WARFARIN 3 MG TAB PO SCH (18:00)
[2022-07-27] MEDS: ALPRAZolam 0.25 MG TAB PO PRN (19:34)
[2022-07-27] MEDS: ACETAMINOPHEN TAB 325 MG TAB PO PRN (20:49)
--- NOTE | 2022-07-27 23:38 | P.PN ---
Subjective Progress Note Date: 07/27/22 Patient is a 47-year-old female with a known history of hypertension, hyperlipidemia, history of CVA/TIA with left arm weakness/numbness, obstructive sleep apnea, history of aortic valve replacement due to infective endocarditis and anxiety presents to ER with complaints of chest pain. Patient states that she has been having on and off chest pain, mid retrosternal and increasing numbness of the left arm than usual. Associated with mild shortness of breath. No nausea vomiting. [place] some dizziness. Otherwise no headache. No leg swelling. Denied any recent illnesses. Patient has been afebrile. No cough or sputum production. Denies any dysuria or hematuria. Chest x-ray showed no acute cardiopulmonary process EKG showed sinus rhythm with right retinal branch block. Ultrasound of the gallbladder showed no gallstones or dilated ducts. No focal liver defect. Laboratory data showed WBC 16.1 hemoglobin 16.3 and platelets 193 D-dimer is 0.51 Sodium 134 potassium 3.5 chloride 96 BUN 24 and creatinine 1.16 Alk phos 165 AST 30 and ALT 32 and troponin x3 negative proBNP 331 and lipase level is 246 Urinalysis is negative for infection. 07/27/2022 Patient is currently resting in bed. Awake alert oriented x3. Still having on and off chest pain. Patient is also anxious. No nausea vomiting abdominal pain or diarrhea. Denies any dysuria or hematuria. No cough or sputum production. Currently being current on heparin drip until INR is therapeutic between 2.5- 3.5. Amlodipine dose increased to 10 mg daily for better blood pressure control. 2D echocardiogram is pending. Cardiology is on board. Level later showed sodium 131 potassium 4.2 chloride 101 bicarb is 24 BUN 22 and creatinine 0.88 INR 2.1 LDL 82.5 WBC 12.0 hemoglobin 14.1 and platelets 167. Procalcitonin level is 0.05. Current medications reviewed. Objective - Vital Signs Vital signs: Vital Signs Temp 97.5 F L 07/27/22 07:00 Pulse 60 07/27/22 14:00 Resp 14 07/27/22 14:00 BP 149/85 07/27/22 07:00 Pulse Ox 98 07/27/22 07:00 FiO2 Intake & Output 07/26/22 07/27/22 07/27/22 18:59 06:59 18:59 Intake Total 486 Balance 486 Intake: Intake, IV Titration 250 Amount Heparin Sod,Pork in 0.45% 250 NaCl 25,000 unit In 0.45 % NaCl 1 250ml.bag @ 10. 8069 UNITS/KG/HR 10 mls/ hr IV .[facility] Rx#: [id number] Oral 236 Other: Voiding Method Toilet Toilet # Voids 1 - Exam PHYSICAL EXAMINATION: Patient is lying in the bed comfortably, no acute distress, awake alert and oriented.. HEENT: Normocephalic. Neck is supple. Pupils reactive. Nostrils clear. Oral cavity is moist. Neck reveals no JVD, carotid bruits, or thyromegaly. CHEST EXAMINATION: Trachea is central. Symmetrical expansion. Lung ballard clear to auscultation and percussion. Bibasilar diminished sounds. CARDIAC: Normal S1, S2 with no gallops. systolic murmur ABDOMEN: Soft. Bowel sounds present. Nontender. No organomegaly. No abdominal bruits. Extremities: reveal no edema. No clubbing or cyanosis Neurologically awake, alert, oriented x3 with well-coordinated movements. No focal deficits noted Skin: No rash or skin lesions. Psychiatric: Coperative. Nonsuicidal, Musculoskeletal: No joint swelling or deformity. Normal range of motion. - Labs CBC & Chem 7: 07/27/22 06:20 07/27/22 08:18 Labs: Abnormal Lab Results - Last 24 Hours (Table) 07/27/22 07/27/22 07/27/22 Range/Units 06:20 06:20 08:18 WBC 12.0 H (3.8-10.6) k/uL PT 21.2 H (9.0-12.0) sec INR 2.1 H (<1.2) APTT 49.7 H (22.0-30.0) sec Sodium 131 L (137-145) mmol/L BUN 22 H (7-17) mg/dL Glucose 175 H (74-99) mg/dL Calcium 8.2 L (8.4-10.2) mg/dL Triglycerides 193.00 H (0.00-149.00) mg/dL Assessment and Plan Assessment: Atypical chest pain. Ruled out ACS. History of aortic valve replacement due to IE/mechanical valve. INR subtherapeutic 1.9. Goal 2.5-3.5 Leukocytosis likely reactive. Trending down. procalcitonin level not elevated. Prior history of infective endocarditis about 9 years ago Coronary artery disease with history of cardiac catheterization. Normal coron israel. History of CVA with left-sided residual weakness and numbness Hypertension Hyperlipidemia Obstructive sleep apnea Anxiety Obesity with a BMI 36.1 DVT prophylaxis patient is already on warfarin Plan: Patient will be current on telemetry monitoring. Serial EKG and troponin x3 negative. INR is subject level. Patient was started on heparin until patient achieves therapeutic INR. Goal 2.5-3.5. INR 1.9 on admission. Cardiology is on board. 2D echocardiogram was ordered. Continue to follow closely. Time with Patient: Greater than 30
[2022-07-28] MEDS ORDERED: WARFARIN 2.5 MG TAB PO SCH (01:23)
[2022-07-28] MEDS: NITROGLYCERIN OINT 1 INCH/GM PACKET TOPICAL SCH (06:17)
--- NOTE | 2022-07-28 09:15 | P.PN ---
Subjective Progress Note Date: 07/28/22 HISTORY OF PRESENT ILLNESS: This is a 47-year-old female who is a patient of Dr. Silva. Patient presented to the hospital with a chief complaint of chest pain. An acute coronary event was ruled out. The patient's blood pressure was elevated upon admission. Her amlodipine has been increased with better control of her blood pressure. The patient was also found to have subtherapeutic INR. She is continued on Coumadin and IV heparin. INR this morning is currently pending. Patient denies any chest pain or pressure this morning. She denies any shortness of breath. Vital signs are stable. PHYSICAL EXAM: VITAL SIGNS: Reviewed. GENERAL: Well-developed in no acute distress. NECK: Supple. No JVD or thyromegaly LUNGS: Respirations even and unlabored. Lungs essentially clear to auscultation bilaterally. HEART: Regular rate and rhythm. S1 and S2 heard. Systolic murmur noted. EXTREMITIES: Normal range of motion. No clubbing or cyanosis. Peripheral pulses intact. No lower extremity edema ASSESSMENT: Chest pain, acute coronary syndrome ruled out, troponin negative 3 History of mechanical aortic valve replacement Hypertension Subtherapeutic INR History of coronary spasm with normal coronary arteries, per cardiac cat heterization in 2020 PLAN: Echocardiogram ordered. Await results. Patient did have a echo in March 2022 with normal EF. Continue current cardiac medications Continue IV heparin until INR reaches 2.5 Continue Coumadin Further recommendations pending patient's course Nurse practitioner note has been reviewed by physician. Signing provider agrees with the documented findings, assessment, and plan of care. Objective - Vital Signs Vital signs: Vital Signs Temp 97.8 F 07/27/22 19:29 Pulse 80 07/28/22 02:00 Resp 18 07/28/22 02:00 BP 107/67 07/28/22 02:00 Pulse Ox 98 07/28/22 02:00 FiO2 Intake & Output 07/27/22 07/28/22 07/28/22 18:59 06:59 18:59 Intake Total 726 Balance 726 Intake: Intake, IV Titration 250 Amount Heparin Sod,Pork in 0.45% 250 NaCl 25,000 unit In 0.45 % NaCl 1 250ml.bag @ 10. 8069 UNITS/KG/HR 10 mls/ hr IV .Q24H [facility] Rx#: [id number] Oral 476 Other: Voiding Method Toilet Toilet # Voids 2 - Labs CBC & Chem 7: 07/27/22 06:20 07/27/22 08:18 Labs: Abnormal Lab Results - Last 24 Hours (Table) 07/27/22 Range/Units 08:18 Triglycerides 193.00 H (0.00-149.00) mg/dL Microbiology - Last 24 Hours (Table) 07/26/22 15:17 Blood Culture - Preliminary Blood No Growth after 24 hours
[2022-07-28 09:17] LABS: Basophils # (A) 0.1 k/uL (0-0.2); Basophils % (A) 1 %; Eosinophils # (A) 0.5 k/uL (0-0.7); Eosinophils % (A) 5 %; HGB 16.1 gm/dL (11.4-16.0); Lymphocytes # (A) 2.3 k/uL (1.0-4.8); Lymphocytes % (A) 25 %; MCH 29.8 pg (25.0-35.0); MCHC 33.6 g/dL (31.0-37.0); MCV 88.7 fL (80.0-100.0); Mean Platelet Volume 8.6; Monocytes # (A) 0.4 k/uL (0-1.0); Monocytes % (A) 4 %; Neutrophils # (A) 6.1 k/uL (1.3-7.7); Neutrophils % (A) 63 %; Platelet Count 197 k/uL (150-450); RBC 5.41 m/uL (3.80-5.40); RDW 14.5 % (11.5-15.5); WBC 9.6 k/uL (3.8-10.6)
[2022-07-28 09:39] LABS: Prothrombin Time 20.1 sec (9.0-12.0)
[2022-07-28] MEDS: PANTOPRAZOLE 40 MG TABLET PO SCH (09:44)
[2022-07-28] MEDS: amLODIPine 10 MG TAB PO SCH (09:44)
[2022-07-28] MEDS: LISINOPRIL-HCTZ 20-25 MG 1 EACH TAB PO SCH (09:44)
[2022-07-28] MEDS: ESCITALOPRAM 10 MG TAB PO SCH (09:44)
[2022-07-28] MEDS: METOPROLOL TARTRATE 50 MG TAB PO SCH ×2 (09:44→20:24)
[2022-07-28 09:55] LABS: Calcium 8.4 mg/dL (8.4-10.2); Potassium 3.9 mmol/L (3.5-5.1)
--- NOTE | 2022-07-28 11:48 | CA ---
Transthoracic Echo Report Name: Rachel Mcgee Age: 47 Gender: F : 1975 Exam Date: 07/28/2022 09:52 Exam Location: [facility] Ht (in): 63 Wt (lb): 204 Ordering Physician: Princess Rodriguez Attending/Referring Phys: [id number], Michael Brim Plater Shana Arriaza RDCS Procedure CPT: Indications: shortness of breath, mechanical AVR Cardiac Hx: Technical Quality: Good Contrast 1: Total Dose (mL): Contrast 2: Total Dose (mL): MEASUREMENTS (Male / Female) Normal Values 2D ECHO LV Diastolic Diameter PLAX 4.1 cm 4.2 - 5.9 / 3.9 - 5.3 cm LV Systolic Diameter PLAX 2.8 cm IVS Diastolic Thickness 1.5 cm 0.6 - 1.0 / 0.6 - 0.9 cm LVPW Diastolic Thickness 1.6 cm 0.6 - 1.0 / 0.6 - 0.9 cm LV Relative Wall Thickness 0.8 RV Internal Dim ED PLAX 2.5 cm LVOT Diameter 2.1 cm LA Systolic Diameter LX 3.8 cm 3.0 - 4.0 / 2.7 - 3.8 cm LA Volume 52.8 cm??? 18 - 58 / 22 - 52 cm??? M-MODE Aortic Root Diameter MM 2.8 cm MV E Point Septal Separation 1.0 cm DOPPLER AV Peak Velocity 351.6 cm/s AV Peak Gradient 49.4 mmHg AV Mean Velocity 255.6 cm/s AV Mean Gradient 29.7 mmHg AV Velocity Time Integral 77.8 cm AI Peak Velocity 451.2 cm/s AI Peak Gradient 81.4 mmHg AI Pressure Half Time 366.9 ms LVOT Peak Velocity 102.2 cm/s LVOT Peak Gradient 4.2 mmHg AV Area Cont Eq pk 1.0 cm??? MV Area PHT 3.5 cm??? Mitral E Point Velocity 106.0 cm/s Mitral A Point Velocity 98.7 cm/s Mitral E to A Ratio 1.1 MV Deceleration Time 215.0 ms MV E' Velocity 5.2 cm/s Mitral E to MV E' Ratio 20.4 TR Peak Velocity 245.3 cm/s TR Peak Gradient 24.1 mmHg Right Ventricular Systolic Press 27.0 mmHg FINDINGS Left Ventricle Left ventricular ejection fraction is estimated at 60-65 %. Left ventricular cavity size normal. Moderate concentric left ventricular hypertrophy. Right Ventricle Normal right ventricular size and function. Right ventricular systolic pressure within normal limits. Right Atrium Normal right atrial size. Left Atrium Normal left atrial size. No evidence for an atrial septal defect. Mitral Valve Structurally normal mitral valve. Mild mitral regurgitation. Aortic Valve Mechanical AOV. Mild aortic stenosis with a peak gradient of 49 mmHg and a mean gradient of 30 mmHg. Mild aortic regurgitation. Tricuspid Valve Mild tricuspid regurgitation. Pulmonic Valve Trace pulmonic regurgitation. Pericardium Normal pericardium. No pericardial effusion. Aorta Normal size aortic root and proximal ascending aorta. CONCLUSIONS Normal LV size and systolic function with concentric LVH. Stable aortic valve mechanical prosthesis with mild to moderate stenosis and mild regurgitation. No significant pulmonary hypertension. No pericardial effusion Previewed by: Dr. Micheal Bhardwaj MD (Electronically Signed) Final Date: 28 July 2022 11:47
[2022-07-28] MEDS: HEPARIN SOD,PORK IN 0.45% NACL 25,000 UNIT in 0.45% NACL 1 250ML.BAG IV SCH (13:54)
--- NOTE | 2022-07-28 15:02 | P.PN ---
Subjective Progress Note Date: 07/28/22 This a 47-year-old with a history of mechanical aortic valve replacement, the patient with atypical chest pain and multiple other medical issues. Blood pressure better controlled on increased Norvasc dose. INR subtherapeutic, anticoagulated on heparin and Coumadin. INR currently 2. Denies chest pain, p alpitations or shortness of breath. Echo/EKG pending. Afebrile, normal WBC. Sodium 134, BUN 19, creatinine 1.03. Objective - Vital Signs Vital signs: Vital Signs Temp 96.7 F L 07/28/22 07:00 Pulse 83 07/28/22 07:00 Resp 18 07/28/22 07:00 BP 138/73 07/28/22 07:00 Pulse Ox 99 07/28/22 07:00 FiO2 Intake & Output 07/27/22 07/28/22 07/28/22 18:59 06:59 18:59 Intake Total 726 780 Balance 726 780 Intake: Intake, IV Titration 250 Amount Heparin Sod,Pork in 0.45% 250 NaCl 25,000 unit In 0.45 % NaCl 1 250ml.bag @ 10. 8069 UNITS/KG/HR 10 mls/ hr IV .Q24H [facility] Rx#: [id number] Oral [id number] Other: Voiding Method Toilet Toilet # Voids 2 - Exam PHYSICAL EXAMINATION: GENERAL: Alert and oriented 3, sitting up in bed, no acute distress. HEENT: Normocephalic. Pupils reactive. MMM. Neck: Supple, no JVD. CHEST EXAMINATION: Unlabored .Lung ballard clear to auscultation and percussion. Bibasilar diminished sounds. CARDIAC: Normal S1, S2 with no gallops. systolic murmur ABDOMEN: Soft. Bowel sounds present. Nontender. No organomegaly. Extremities: no edema. No clubbing or cyanosis. Neurologically awake, alert, oriented x3 with well-coordinated movements. No focal deficits noted Skin: No rash, warm and dry - Labs CBC & Chem 7: 07/28/22 08:59 07/28/22 08:59 Labs: Abnormal Lab Results - Last 24 Hours (Table) 07/27/22 07/28/22 07/28/22 Range/Units 08:18 08:59 08:59 RBC 5.41 H (3.80-5.40) m/uL Hgb 16.1 H (11.4-16.0) gm/dL Hct 48.0 H (34.0-46.0) % PT 20.1 H (9.0-12.0) sec INR 2.0 H (<1.2) Sodium (137-145) mmol/L BUN (7-17) mg/dL Glucose (74-99) mg/dL Triglycerides 193.00 H (0.00-149.00) mg/dL 07/28/22 Range/Units 08:59 RBC (3.80-5.40) m/uL Hgb (11.4-16.0) gm/dL Hct (34.0-46.0) % PT (9.0-12.0) sec INR (<1.2) Sodium 134 L (137-145) mmol/L BUN 19 H (7-17) mg/dL Glucose 221 H (74-99) mg/dL Triglycerides (0.00-149.00) mg/dL Microbiology - Last 24 Hours (Table) 07/26/22 15:17 Blood Culture - Preliminary Blood No Growth after 24 hours Assessment and Plan Assessment: Atypical chest pain.ACS ruled out. History of aortic valve replacement due to IE/mechanical valve. Leukocytosis likely reactive, resolved. procalcitonin level not elevated. Prior history of infective endocarditis about 9 years ago Coronary artery disease with history of cardiac catheterization. Normal coronaries. 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 EKG/echo pending. Anticoagulated on Coumadin and IV heparin pending therapeutic INR of 2.5. Follow closely with cardiology. The impression and plan of care has been dictated as directed. : I performed a history and examination of this patient, discussed the same with the dictator. I agree with the dictator's note ,documented as a scribe. Any additional findings or plans will be noted.
[2022-07-28] MEDS ORDERED: WARFARIN 7.5 MG TAB PO ONE (18:00)
[2022-07-28] MEDS: ACETAMINOPHEN TAB 325 MG TAB PO PRN (20:23)
[2022-07-28] MEDS: ALPRAZolam 0.25 MG TAB PO PRN (20:25)
[2022-07-29 07:10] VITALS: PULSE 80; RESP 18
[2022-07-29 09:03] VITALS: BP 128/80; TEMP 97.8
[2022-07-29 09:03] LABS: INR 2.6 (<1.2); Partial Thromboplastin Time 56.9 sec (22.0-30.0); Prothrombin Time 26.4 sec (9.0-12.0)
[2022-07-29] MEDS: LISINOPRIL-HCTZ 20-25 MG 1 EACH TAB PO SCH (09:03)
[2022-07-29] MEDS: METOPROLOL TARTRATE 50 MG TAB PO SCH (09:04)
[2022-07-29] MEDS: ESCITALOPRAM 10 MG TAB PO SCH (09:04)
[2022-07-29] MEDS: amLODIPine 10 MG TAB PO SCH (09:04)
[2022-07-29] MEDS: PANTOPRAZOLE 40 MG TABLET PO SCH (09:04)
--- NOTE | 2022-07-29 10:06 | P.DS ---
Providers Date of admission: 07/28/22 12:37 Expected date of discharge: 07/29/22 Attending physician: Ahmet Rodriguez MD Consults: 07/26/22 01:21 Consult Physician Routine Consulting Provider: Layton Kruse Consult Reason/Comments: chest pain Do you want consulting provider notified?: Yes Primary care physician: Ahmet Rodriguez MD Hospital Course: Final Diagnoses: Atypical chest pain.ACS ruled out. History of aortic valve replacement due to IE/mechanical valve. Leukocytosis likely reactive, resolved. procalcitonin level not elevated. Prior history of infective endocarditis about 9 years ago Coronary artery disease with history of cardiac catheterization. Normal coronaries. History of CVA with left-sided residual weakness and numbness Hypertension Hyperlipidemia Obstructive sleep apnea Anxiety Obesity with a BMI 36.1 Hospital course:This a 47-year-old with a history of mechanical aortic valve replacement, the patient with atypical chest pain and multiple other medical issues. Blood pressure better controlled on increased Norvasc dose. INR subtherapeutic, anticoagulated on heparin and Coumadin. INR currently 2. Denies chest pain, palpitations or shortness of breath. Echo/EKG pending. Afebrile, normal WBC. Sodium 134, BUN 19, creatinine 1.03. Echocardiogram completed, reporting normal LV size and systolic function with concentric left ventricular hypertrophy, stable aortic valve mechanical prosthesis with mild to moderate aortic stenosis, no significant pulmonary hypertension. Amlodipine increased with blood pressure better controlled.Sitting up in chair, feels better this morning, denies chest pain, palpitations or shortness of breath. Patient will be discharged home pending INR greater than or equal to 2.5, final DC recommendations including confirmation of Coumadin dosing at DC and clearance as per cardiology. The impression and plan of care has been dictated as directed. : I performed a history and examination of this patient, discussed the same with the dictator. I agree with the dictator's note ,documented as a scribe. Any additional findings or plans will be noted. Patient Condition at Discharge: Stable Plan - Discharge Summary Discharge Rx Participant: Yes New Discharge Prescriptions: New amLODIPine [Norvasc] 10 mg PO DAILY #30 tab Continue Metoprolol Tartrate [Lopressor] 50 mg PO BID Lisinopril-Hctz 20-25 mg [Zestoretic 20-25] 1 tab PO DAILY Warfarin [Coumadin] 5 mg PO SUMOTUWETHSA Warfarin [Coumadin] 7.5 mg PO FR Omeprazole 20 mg PO DAILY Escitalopram [Lexapro] 10 mg PO DAILY Nitroglycerin Sl Tabs [Nitrostat] 0.4 mg SUBLINGUAL Q5M PRN #10 tab PRN Reason: Chest Pain Discontinued Liraglutide [Saxenda] 1.2 mg SQ DAILY amLODIPine [Norvasc] 5 mg PO DAILY Meloxicam [Mobic] 15 mg PO HS SUMAtriptan succinate [Imitrex] 50 mg PO BID PRN PRN Reason: Migraine Headache Discharge Medication List Metoprolol Tartrate [Lopressor] 50 mg PO BID 11/11/17 [History] Lisinopril-Hctz 20-25 mg [Zestoretic 20-25] 1 tab PO DAILY 10/18/19 [History] Omeprazole 20 mg PO DAILY 02/01/21 [History] Warfarin [Coumadin] 5 mg PO SUMOTUWETHSA 02/01/21 [History] Warfarin [Coumadin] 7.5 mg PO FR 02/01/21 [History] Nitroglycerin Sl Tabs [Nitrostat] 0.4 mg SUBLINGUAL Q5M PRN #10 tab 03/18/22 [Rx] Escitalopram [Lexapro] 10 mg PO DAILY 07/26/22 [History] amLODIPine [Norvasc] 10 mg PO DAILY #30 tab 07/29/22 [Rx] Follow up Appointment(s)/Referral(s): Ahmet Rodriguez MD [Primary Care Provider] - 3 Days Ambulatory/Diagnostic Orders: Prothrombin Time INR [LAB.AMB] Time Frame: 07/31/22, Location: None Selected Patient Instructions/Handouts: Amlodipine (By mouth), Chest Pain (ED), Chronic Hypertension (DC)
--- NOTE | 2022-07-29 11:26 | P.PN ---
Subjective Progress Note Date: 07/29/22 HISTORY OF PRESENT ILLNESS: This is a 47-year-old female who is a patient of Dr. Silva. Patient presented to the hospital with a chief complaint of chest pain. An acute coronary event was ruled out. The patient's blood pressure was elevated upon admission. Her amlodipine has been increased with better control of her blood pressure. The patient was also found to have subtherapeutic INR. She is continued on Coumadin and IV heparin. INR this morning is currently pending. Patient denies any chest pain or pressure this morning. She denies any shortness of breath. Vital signs are stable. 07/29/2022 Patient examined this morning at bedside. Patient denies chest pain or pressure. Denies SOB. INR 2.6. Echo reveals EF 60-65% PHYSICAL EXAM: VITAL SIGNS: Reviewed. GENERAL: Well-developed in no acute distress. NECK: Supple. No JVD or thyromegaly LUNGS: Respirations even and unlabored. Lungs essentially clear to auscultation bilaterally. HEART: Regular rate and rhythm. S1 and S2 heard. Systolic murmur noted. EXTREMITIES: Normal range of motion. No clubbing or cyanosis. Peripheral pulses intact. No lower extremity edema ASSESSMENT: Chest pain, acute coronary syndrome ruled out, troponin negative 3 History of mechanical aortic valve replacement Hypertension Subtherapeutic INR History of coronary spasm with normal coronary arteries, per cardiac catheterization in 2020 PLAN: Continue current cardiac medications Patient stable for discharge home today Follow up outpatient with Dr. Silva Nurse practitioner note has been reviewed by physician. Signing provider agrees with the documented findings, assessment, and plan of care. Objective - Vital Signs Vital signs: Vital Signs Temp 97.8 F 07/29/22 09:03 Pulse 80 07/29/22 09:03 Resp 18 07/29/22 09:03 BP 128/80 07/29/22 09:03 Pulse Ox 98 07/29/22 09:03 FiO2 Intake & Output 07/28/22 07/29/22 07/29/22 18:59 06:59 18:59 Intake Total 2590 118 Balance 2590 118 Intake: Intake, IV Titration 250 Amount Heparin Sod,Pork in 0.45% 250 NaCl 25,000 unit In 0.45 % NaCl 1 250ml.bag @ 10. 8069 UNITS/KG/HR 10 mls/ hr IV .Q24H [facility] Rx#: [id number] Oral [id number] Other: Voiding Method Toilet # Voids 1 - Labs CBC & Chem 7: 07/28/22 08:59 07/28/22 08:59 Labs: Abnormal Lab Results - Last 24 Hours (Table) 07/29/22 Range/Units 08:09 PT 26.4 H (9.0-12.0) sec INR 2.6 H (<1.2) APTT 56.9 H (22.0-30.0) sec Microbiology - Last 24 Hours (Table) 07/26/22 15:17 Blood Culture - Preliminary Blood No Growth after 48 hours
[2022-07-29] MEDS ORDERED: WARFARIN 3 MG TAB PO ONE (18:00)
[2022-08-01] MEDS ORDERED: WARFARIN 7.5 MG TAB PO SCH (18:00)
== END 2022-07-29 10:51 | disposition home or self-care (01) | DRG 313 ==
LOC: EC 21:25 → 6NMEDSUR 07-26 01:21 → 3SCARD 07-26 15:50 → OBSVTOIN 07-28 12:37
PROVIDERS: ADMIT Family Medicine; ATTEND Family Medicine
DX: R07.89 Other chest pain (principal); I69.354 Hemiplegia and hemiparesis following cerebral infarction affecting left non-dominant side; D72.829 Elevated white blood cell count, unspecified; E66.9 Obesity, unspecified; E78.5 Hyperlipidemia, unspecified; F41.9 Anxiety disorder, unspecified; G47.33 Obstructive sleep apnea (adult) (pediatric); I10 Essential (primary) hypertension; I25.10 Atherosclerotic heart disease of native coronary artery without angina pectoris; I35.0 Nonrheumatic aortic (valve) stenosis; I45.10 Unspecified right bundle-branch block; R79.1 Abnormal coagulation profile; Z68.36 Body mass index [BMI] 36.0-36.9, adult; Z79.01 Long term (current) use of anticoagulants; Z79.899 Other long term (current) drug therapy; Z82.3 Family history of stroke; Z95.3 Presence of xenogenic heart valve
CPT/HCPCS: 36415; 71046; 76705; 80048; 80053; 80061; 81003; 82150; 83690; 83735; 83880; 84145; 84484; 85025; 85379; 85610; 85730; 87040; 93005; 93306; 96365; 96366; 99285

== ENCOUNTER → 2022-10-15 | Outpatient (CLI) | payer MEDICAID, OTHER ==
[2022-10-15 22:45] LABS: African American GFR (CKD) 67.5 (60.0-200.0); Albumin 4.2 g/dL (3.8-4.9); Albumin/Globulin Ratio 1.43 (1.60-3.17); Anion Gap 11.6 mmol/L (10.00-18.00); BUN/Creat Ratio 13.96 Ratio (12.00-20.00); Blood Urea Nitrogen 15.5 mg/dL (9.0-27.0); C Reactive Protein 1.2 mg/dL (0.00-0.80); Calcium 9.3 mg/dL (8.7-10.3); Carbon Dioxide 26.3 mmol/L (20.0-27.5); Globulin 2.9 g/dL (1.6-3.3); Non-African American GFR(CKD) 58.3 (60.0-200.0); Total Bilirubin 0.5 mg/dL (0.30-1.20); Total Protein 7.1 g/dL (6.2-8.2)
[2022-10-15 22:48] LABS: Erythrocyte Sedimentation Rate 31 mm/Hr (0-20)
[2022-10-15 23:36] LABS: HCT 43.9 % (37.2-46.3); HGB 14.2 g/dL (12.0-15.0); MCH 29.9 pg (27.0-32.0); MCHC 32.3 g/dL (32.0-37.0); MCV 92.4 fL (80.0-97.0); Mean Platelet Volume 11.3 fL (9.5-12.2); NRBC Per 100 WBC 0 /100 WBCS (0.0-0.0); Platelet Count 239 X 10*3/uL (140-440); RBC 4.75 X 10*6/uL (4.10-5.20); RDW 14.8 % (11.5-14.5); WBC 18.36 X 10*3/uL (4.50-10.00)
== END | disposition home or self-care (01) ==
LOC: LABWHC1 16:03
PROVIDERS: ATTEND Family Medicine
DX: R07.9 Chest pain, unspecified (principal)
CPT/HCPCS: 36415; 80053; 84484; 85027; 85379; 85652; 86140

== ENCOUNTER 2022-10-24 09:17 | Day surgery (SDC) | payer MEDICAID, OTHER ==
[2022-10-22 14:59] VITALS: BMI 38.9
[~2022-10-24 09:17] MED LIST changes: -ACETAMINOPHEN TAB 325 MG TAB ONE; -ACETAMINOPHEN TAB 325 MG TAB PO STA; -ALPRAZolam 0.25 MG TAB PO PRN; -ALPRAZolam 0.5 MG TAB PO PRN; -ASPIRIN 325 MG TAB PO STA; -ASPIRIN 81 MG PO SCH; -ATORVASTATIN 80 MG TAB PO STA; -CLOPIDOGREL 75 MG TAB PO SCH; -ENOXAPARIN 100 MG/ML SYRINGE SQ SCH; -GABAPENTIN 300 MG CAP PO SCH; -HEPARIN SODIUM 1,000 UN/ML (10ML VL) IV ONE; -IOPAMIDOL-370 125ML BTL INJ ONE; +LACTATED RINGERS 1,000 ML IV SCH; -LIDOCAINE 1% INJ 10MG/ML (20 ML MDV) SQ ONE; -LISINOPRIL-HCTZ 20-25 MG 1 EACH TAB PO SCH; -METOPROLOL TARTRATE 50 MG TAB PO SCH; -MIDAZOLAM 2 MG/2 ML VIAL IV ONE; -NITROGLYCERIN SL TABS 0.4 MG TAB SUBLINGUAL PRN; -ONDANSETRON 4 MG/2 ML VIAL IVP STA; -PANTOPRAZOLE 40 MG TABLET PO SCH; -RX INFO: IV CONTRAST WAS GIVEN 1 EACH MISC MISCELLANE PRN; -SODIUM CHLORIDE 0.9% 1,000 ML IV ONE; -SODIUM CHLORIDE 0.9% 1,000 ML IV SCH; -SODIUM CHLORIDE 0.9% 1,000 ML in EMPTY BAG 1 BAG IV ONE; -WARFARIN 10 MG TAB PO ONE; -WARFARIN 10 MG TAB PO SCH; -WARFARIN 7.5 MG TAB PO SCH; -fentaNYL (PF) 50 MCG/ML 2 ML AMP IV ONE
[2022-10-24 10:37] VITALS: TEMP 97
[2022-10-24 10:39] LABS: Glucose,Whole Blood 79 mg/dL (70-110)
[2022-10-24] MEDS ORDERED: PROPOFOL 10 MG/ML 20 ML VIAL IV ONE (11:05)
[2022-10-24] MEDS ORDERED: LIDOCAINE 2% INJ 20 MG/ML (2 ML VIAL) ONE (11:05)
--- NOTE | 2022-10-24 11:18 | P.PCN ---
Date of Procedure: 10/24/22 Procedure(s) Performed: BRIEF HISTORY: Patient is a 38-year-old, pleasant, white female scheduled for an upper endoscopy as a part of evaluation of long-standing history of GERD of 3 years duration. Lately has been having atypical chest pain since June of this year and has been on omeprazole 40 mg daily as well as Pepcid 40 mg at bedtime with no help.. PROCEDURE PERFORMED: Esophagogastroduodenoscopy with biopsy. PREOPERATIVE DIAGNOSIS: Long-standing history of GERD/atypical chest pain. IV sedation per anesthesia. PROCEDURE: After informed consent was obtained, the patient was brought into the endoscopy unit. IV sedation was administered by Anesthesia under continuous monitoring. Initially the Olympus GIF-140 video endoscope was inserted into the mouth. Esophagus intubated without any difficulty. It was gradually advanced into the stomach and duodenum and carefully examined. The bulb and the second part of the duodenum appeared normal. The scope at this time was withdrawn to the stomach, adequately insufflated with air, and upon careful examination, mucosa of the antrum had diffuse gastritis and biopsies were done from this area., body, cardia and the fundus appeared normal. The scope was then withdrawn into the esophagus. The GE junction was located at 39 cm from the incisors. It appeared irregular but there was no evidence of esophagitis or Rizvi's esophagus. The esophagus appeared normal. There were no erosions or ulcerations seen, biopsies were done from the distal esophagus and the patient tolerated the procedure well. IMPRESSION: 1. Irregular GE junction but no evidence of esophagitis or Rizvi's esophagus. 2. Mild antral gastritis. RECOMMENDATIONS: The findings of this examination were discussed with the patient as well as a family. She was advised to follow with the biopsy results. Continue with omeprazole 40 mg daily and Pepcid 40 mg at bedtime. Follow antrum reflux measures..
[2022-10-24 11:42] VITALS: BP 119/79; PULSE 76; RESP 16
== END 2022-10-24 12:04 | disposition home or self-care (01) ==
LOC: ORWHC2ENDO 09:17
PROVIDERS: ATTEND Internal Medicine Gastroenterology
DX: K29.50 Unspecified chronic gastritis without bleeding (principal); K21.00 Gastro-esophageal reflux disease with esophagitis, without bleeding; G47.33 Obstructive sleep apnea (adult) (pediatric); I63.9 Cerebral infarction, unspecified; I10 Essential (primary) hypertension; Z79.899 Other long term (current) drug therapy
CPT/HCPCS: 88305; 88342; 43239; J2704; J2001

== ENCOUNTER → 2023-03-04 | Outpatient (CLI) | payer MEDICAID, OTHER ==
[2023-03-05 02:15] LABS: African American GFR (CKD) 54.3 (60.0-200.0); Anion Gap 13.5 mmol/L (10.00-18.00); BUN/Creat Ratio 13.98 Ratio (12.00-20.00); Blood Urea Nitrogen 18.6 mg/dL (9.0-27.0); Calcium 9.4 mg/dL (8.7-10.3); Carbon Dioxide 29.7 mmol/L (20.0-27.5); Non-African American GFR(CKD) 46.8 (60.0-200.0); Potassium 3.5 mmol/L (3.5-5.5)
== END | disposition home or self-care (01) ==
LOC: LABWHC1 11:44
PROVIDERS: ATTEND Nurse Practitioner Acute Care
DX: Z95.2 Presence of prosthetic heart valve (principal); R06.02 Shortness of breath
CPT/HCPCS: 36415; 80048; 83880; 85379

== ENCOUNTER 2023-03-06 00:44 | Inpatient (IN) | payer MEDICAID, OTHER ==
--- NOTE | 2023-03-06 01:00 | ED ---
General Adult HPI - General Stated complaint: Chest Pain Time Seen by Provider: 03/06/23 00:48 Source: patient, EMS, RN notes reviewed, old records reviewed Mode of arrival: EMS Limitations: no limitations - History of Present Illness Initial comments: 47 yo female presents for evaluation of dyspnea and chest pain. Patient states over the past 5 days she's had increased dyspnea and had been seen by her b2b sales manager within the past 24-48 hours. Patient had noted that her BNP was significantly elevated and started the patient on Lasix. She does report a dry cough. No fever. No leg swelling or edema. She has a history of mechanical valve replacement and is on Coumadin. - Related Data Home Medications Medication Instructions Recorded Confirmed Omeprazole 20 mg PO DAILY 02/01/21 03/06/23 Warfarin [Coumadin] 5 mg PO TUTHFR 02/01/21 03/06/23 Warfarin [Coumadin] 7.5 mg PO SUMOWESA 02/01/21 03/06/23 Famotidine 40 mg PO DAILY 10/22/22 03/06/23 buPROPion HCL [Wellbutrin SR] 150 mg PO HS 10/22/22 03/06/23 Cyclobenzaprine [Flexeril] 10 mg PO BID PRN 03/06/23 03/06/23 Furosemide [Lasix] 40 mg PO DAILY 03/06/23 03/06/23 Lisinopril-Hctz 20-25 mg 1 tab PO DAILY 03/06/23 03/06/23 [Zestoretic 20-25] Metoprolol Tartrate [Lopressor] 25 mg PO BID 03/06/23 03/06/23 Terbinafine [LamISIL] 250 mg PO DAILY 03/06/23 03/06/23 amLODIPine [Norvasc] 5 mg PO DAILY 03/06/23 03/06/23 Previous Rx's Medication Instructions Recorded Nitroglycerin Sl Tabs [Nitrostat] 0.4 mg SUBLINGUAL Q5M PRN #10 tab 03/18/22 Allergies Allergy/AdvReac Type Severity Reaction Status Date / Time No Known Allergies Allergy Verified 03/06/23 08:43 Review of Systems ROS Statement: Those systems with pertinent positive or pertinent negative responses have been documented in the HPI. ROS Other: All systems not noted in ROS Statement are negative. Past Medical History Past Medical History: CVA/TIA, GERD/Reflux, Hyperlipidemia, Hypertension, Sleep Apnea/CPAP/BIPAP Additional Past Medical History / Comment(s): "MRI SHOWS FEW STROKES;" C/O N/T, WEAKNESS LT ARM. LIGHTHEADEDNESS. abdominal and chest pain, born with 1 kidney History of Any Multi-Drug Resistant Organisms: None Reported Past Surgical History: Cardiac Valve Replacement, Heart Catheterization Additional Past Surgical History / Comment(s): EXC WISDOM TEETH, 1st open heart surgery 2014 mechanical aortic valve 2020 with aortic root repair, eye surgery 2019 Past Anesthesia/Blood Transfusion Reactions: No Reported Reaction Past Psychological History: Anxiety, Depression Smoking Status: Former smoker Past Alcohol Use History: None Reported Past Drug Use History: None Reported - Past Family History Mother Family Medical History: AFIB, CVA/TIA Additional Family Medical History / Comment(s): "BLOOD CLOT BEHIND HEART" Brother(s) Family Medical History: CVA/TIA Additional Family Medical History / Comment(s): HAD MULT STROKES IN LATE S, LUPUS General Exam Limitations: no limitations General appearance: alert, in distress Head exam: Present: atraumatic, normocephalic Eye exam: Present: normal appearance, PERRL ENT exam: Present: normal exam Neck exam: Present: normal inspection. Absent: tenderness, meningismus Respiratory exam: Present: respiratory distress, wheezes, decreased breath sounds Cardiovascular Exam: Present: regular rate, normal rhythm, systolic murmur (Vázquez systolic murmur, no metallic click) GI/Abdominal exam: Present: soft. Absent: distended, tenderness, guarding Extremities exam: Present: normal inspection, normal capillary refill. Absent: calf tenderness Neurological exam: Present: alert, oriented X3, CN II-XII intact. Absent: motor sensory deficit Psychiatric exam: Present: normal affect, normal mood Skin exam: Present: warm, dry, intact. Absent: cyanosis, diaphoretic Course Vital Signs 03/06/23 03/06/23 03/06/23 00:46 00:50 01:23 Temperature 98.0 F Pulse Rate 76 97 Respiratory 20 22 27 H Rate Blood Pressure 114/71 114/71 O2 Sat by Pulse 95 95 Oximetry 03/06/23 03/06/23 03/06/23 01:24 01:30 01:45 Temperature Pulse Rate 95 92 90 Respiratory 22 20 28 H Rate Blood Pressure 100/68 100/68 108/56 O2 Sat by Pulse 97 97 95 Oximetry 03/06/23 03/06/23 03/06/23 02:02 02:12 02:15 Temperature Pulse Rate 90 87 Respiratory Rate Blood Pressure 90/46 O2 Sat by Pulse Oximetry 03/06/23 03/06/23 03/06/23 02:30 02:32 02:45 Temperature Pulse Rate 90 90 Respiratory 20 25 H Rate Blood Pressure 90/46 103/66 103/66 O2 Sat by Pulse 98 98 Oximetry 03/06/23 03/06/23 03/06/23 03:00 03:15 03:27 Temperature Pulse Rate 89 87 Respiratory 27 H 18 Rate Blood Pressure 103/66 104/69 103/66 O2 Sat by Pulse 97 96 Oximetry 03/06/23 03/06/23 03/06/23 03:30 03:45 04:00 Temperature Pulse Rate 87 91 91 Respiratory 14 26 H 37 H Rate Blood Pressure 104/69 106/76 106/76 O2 Sat by Pulse Oximetry Medical Decision Making - Medical Decision Making Was pt. sent in by a medical professional or institution (, PA, BMET, urgent care, hospital, or care home...) When possible be specific @ -No Did you speak to anyone other than the patient for history (EMS, parent, family, police, friend...)? What history was obtained from this source @ -Paramedics Did you review nursing and triage notes (agree or disagree)? Why? @ -I reviewed and agree with nursing and triage notes Were old charts reviewed (outside hosp., previous admission, EMS record, old EKG, old radiological studies, urgent care reports/EKG's, care home records)? Report findings @ -[Previous echo results Differential Diagnosis (chest pain, altered mental status, abdominal pain women, abdominal pain men, vaginal bleeding, weakness, fever, dyspnea, syncope, headache, dizziness, GI bleed, back pain, seizure, CVA, palpatations, mental health, musculoskeletal)? @ -Differential Dyspnea: Coronary syndrome, arrhythmia, tamponade, asthma, COPD, pulmonary embolism, pneumonia, pneumothorax, pulmonary effusion, anaphylaxis, diabetic ketoacidosis, flailed chest, pulmonary contusion, diaphragmatic rupture, anemia, neuromuscular, this is not meant to be an all-inclusive list. EKG interpreted by me (3pts min.). @ -Sinus rhythm right bundle branch block, left anterior fascicular block, rate 95, MS interval 136, QRS duration 132, QTC 458 X-rays interpreted by me (1pt min.). @ No focal pneumonia, no pleural effusion, no pneumothorax, increased pulmonary vascular congestion CT interpreted by me (1pt min.). @ -CT angios the chest ordered, negative for pulmonary embolism, does show increased interstitial edema consistent with CHF U/S interpreted by me (1pt. min.). @ -None done What testing was considered but not performed or refused? (CT, X-rays, U/S, lab s)? Why? @ -None What meds were considered but not given or refused? Why? @ -None Did you discuss the management of the patient with other professionals (professionals i.e. , PA, BMET, lab, RT, psych nurse, social work professor, engraver pantograph, teacher, ski patrol officer, case picker)? Give summary @ -Dr. Rodriguez, and Dr Pisano Was smoking cessation discussed for >3mins.? @ -No Was critical care preformed (if so, how long)? @ -yes 35 Were there social determinants of health that impacted care today? How? (Homelessness, low income, unemployed, alcoholism, drug addiction, transportation, low edu. Level, literacy, decrease access to med. care, usp, rehab)? @ -No Was there de-escalation of care discussed even if they declined (Discuss DNR or withdrawal of care, Hospice)? DNR status @ -No What co-morbidities impacted this encounter? (DM, HTN, Smoking, COPD, CAD, Cancer, CVA, ARF, Chemo, Hep., AIDS, mental health diagnosis, sleep apnea, morb id obesity)? @ -Mechanical aortic valve, diabetes Was patient admitted / discharged? Hospital course, mention meds given and route, prescriptions, significant lab abnormalities, going to OR and other pertinent info. @ 47-year-old female presenting for evaluation of increased dyspnea and associated chest pain. History of mechanical aortic valve. Patient is on Coumadin. She's had a dry cough and increasing dyspnea over the past 5 days. S he has increasing elevated BNP at 12,000 from 7002 days ago. She has a troponin elevation of 0.55. She denies a previous history of coronary artery disease. I suspect this troponin elevation is related to CHF. She has a leukocytosis with a white count of 20 which is also chronically elevated. She is given a dose of Lasix in the emergency department. I suspect this is predominantly acute CHF which may be valve related, however there is some wheezing and a previous tobacco history, will trial bronchodilators and steroids as well in this patient. Patient will be admitted to internal medicine with both cardiology and pulmonology on consult. Patient had subtherapeutic INR at 1.7 and had an elevated d-dimer as an outpatient. In this setting given the increased dyspnea I did obtain CT a ngiography which is negative for pulmonary embolism, but was consistent with CHF, no pericardial effusion noted Undiagnosed new problem with uncertain prognosis? @ -No Drug Therapy requiring intensive monitoring for toxicity (Heparin, Nitro, In sulin, Cardizem)? @ -No Were any procedures done? @ -No Diagnosis/symptom? @ -Acute CHF Acute, or Chronic, or Acute on Chronic? @ -Acute Uncomplicated (without systemic symptoms) or Complicated (systemic symptoms)? @ -[Complicated Side effects of treatment? @ -No Exacerbation, Progression, or Severe Exacerbation? @ -No Poses a threat to life or bodily function? How? (Chest pain, [place], [place], pneumonia, PE, COPD, DKA, ARF, appy, cholecystitis, CVA, Diverticulitis, Homicidal, Suicidal, threat to staff... and all critical care pts) @ -Yes, CHF, hypoxia - Lab Data Result diagrams: 03/06/23 18:01 03/06/23 18:01 Lab Results 03/06/23 03/06/23 03/06/23 Range/Units 00:55 00:55 00:55 WBC 21.2 H (3.8-10.6) k/uL RBC 4.85 (3.80-5.40) m/uL Hgb 14.1 (11.4-16.0) gm/dL Hct 42.5 (34.0-46.0) % MCV 87.7 (80.0-100.0) fL MCH 29.2 (25.0-35.0) pg MCHC 33.3 (31.0-37.0) g/dL RDW 15.6 H (11.5-15.5) % Plt Count 225 (150-450) k/uL MPV 9.5 Neutrophils % 81 % Lymphocytes % 12 % Monocytes % 3 % Eosinophils % 2 % Basophils % 0 % Neutrophils # 17.2 H (1.3-7.7) k/uL Lymphocytes # 2.6 (1.0-4.8) k/uL Monocytes # 0.7 (0-1.0) k/uL Eosinophils # 0.4 (0-0.7) k/uL Basophils # 0.1 (0-0.2) k/uL PT 16.4 H (9.0-12.0) sec INR 1.7 H (<1.2) APTT 24.8 (22.0-30.0) sec Sodium 134 L (137-145) mmol/L Potassium 4.7 (3.5-5.1) mmol/L Chloride 94 L (98-107) mmol/L Carbon Dioxide 28 (22-30) mmol/L Anion Gap 12 mmol/L BUN 30 H (7-17) mg/dL Creatinine 1.34 H (0.52-1.04) mg/dL Est GFR (CKD-EPI)AfAm 54 (>60 ml/min/1.73 sqM) Est GFR (CKD-EPI)NonAf 47 (>60 ml/min/1.73 sqM) Glucose 222 H (74-99) mg/dL Plasma Lactic Acid Hossein (0.7-2.0) mmol/L Calcium 9.3 (8.4-10.2) mg/dL Magnesium 2.3 (1.6-2.3) mg/dL Total Bilirubin 2.4 H (0.2-1.3) mg/dL AST 115 H (14-36) U/L ALT 76 H (4-34) U/L Alkaline Phosphatase 92 (38-126) U/L Troponin I (0.000-0.034) ng/mL NT-Pro-B Natriuret Pep pg/mL Total Protein 8.0 (6.3-8.2) g/dL Albumin 4.4 (3.5-5.0) g/dL Influenza Type A (PCR) (Not Detectd) Influenza Type B (PCR) (Not Detectd) RSV (PCR) (Not Detectd) SARS-CoV-2 (PCR) (Not Detectd) 03/06/23 03/06/23 03/06/23 Range/Units 00:55 00:55 00:55 WBC (3.8-10.6) k/uL RBC (3.80-5.40) m/uL Hgb (11.4-16.0) gm/dL Hct (34.0-46.0) % MCV (80.0-100.0) fL MCH (25.0-35.0) pg MCHC (31.0-37.0) g/dL RDW (11.5-15.5) % Plt Count (150-450) k/uL MPV Neutrophils % % Lymphocytes % % Monocytes % % Eosinophils % % Basophils % % Neutrophils # (1.3-7.7) k/uL Lymphocytes # (1.0-4.8) k/uL Monocytes # (0-1.0) k/uL Eosinophils # (0-0.7) k/uL Basophils # (0-0.2) k/uL PT (9.0-12.0) sec INR (<1.2) APTT (22.0-30.0) sec Sodium (137-145) mmol/L Potassium (3.5-5.1) mmol/L Chloride (98-107) mmol/L Carbon Dioxide (22-30) mmol/L Anion Gap mmol/L BUN (7-17) mg/dL Creatinine (0.52-1.04) mg/dL Est GFR (CKD-EPI)AfAm (>60 ml/min/1.73 sqM) Est GFR (CKD-EPI)NonAf (>60 ml/min/1.73 sqM) Glucose (74-99) mg/dL Plasma Lactic Acid Hossein 2.0 (0.7-2.0) mmol/L Calcium (8.4-10.2) mg/dL Magnesium (1.6-2.3) mg/dL Total Bilirubin (0.2-1.3) mg/dL AST (14-36) U/L ALT (4-34) U/L Alkaline Phosphatase (38-126) U/L Troponin I 0.551 H* (0.000-0.034) ng/mL NT-Pro-B Natriuret Pep 74296 pg/mL Total Protein (6.3-8.2) g/dL Albumin (3.5-5.0) g/dL Influenza Type A (PCR) (Not Detectd) Influenza Type B (PCR) (Not Detectd) RSV (PCR) (Not Detectd) SARS-CoV-2 (PCR) (Not Detectd) 03/06/23 Range/Units 01:27 WBC (3.8-10.6) k/uL RBC (3.80-5.40) m/uL Hgb (11.4-16.0) gm/dL Hct (34.0-46.0) % MCV (80.0-100.0) fL MCH (25.0-35.0) pg MCHC (31.0-37.0) g/dL RDW (11.5-15.5) % Plt Count (150-450) k/uL MPV Neutrophils % % Lymphocytes % % Monocytes % % Eosinophils % % Basophils % % Neutrophils # (1.3-7.7) k/uL Lymphocytes # (1.0-4.8) k/uL Monocytes # (0-1.0) k/uL Eosinophils # (0-0.7) k/uL Basophils # (0-0.2) k/uL PT (9.0-12.0) sec INR (<1.2) APTT (22.0-30.0) sec Sodium (137-145) mmol/L Potassium (3.5-5.1) mmol/L Chloride (98-107) mmol/L Carbon Dioxide (22-30) mmol/L Anion Gap mmol/L BUN (7-17) mg/dL Creatinine (0.52-1.04) mg/dL Est GFR (CKD-EPI)AfAm (>60 ml/min/1.73 sqM) Est GFR (CKD-EPI)NonAf (>60 ml/min/1.73 sqM) Glucose (74-99) mg/dL Plasma Lactic Acid Hossein (0.7-2.0) mmol/L Calcium (8.4-10.2) mg/dL Magnesium (1.6-2.3) mg/dL Total Bilirubin (0.2-1.3) mg/dL AST (14-36) U/L ALT (4-34) U/L Alkaline Phosphatase (38-126) U/L Troponin I (0.000-0.034) ng/mL NT-Pro-B Natriuret Pep pg/mL Total Protein (6.3-8.2) g/dL Albumin (3.5-5.0) g/dL Influenza Type A (PCR) Not Detected (Not Detectd) Influenza Type B (PCR) Not Detected (Not Detectd) RSV (PCR) Not Detected (Not Detectd) SARS-CoV-2 (PCR) Not Detected (Not Detectd) Critical Care Time Critical Care Time: Yes Total Critical Care Time: 35 Disposition Clinical Impression: Congestive heart failure, Aortic valve replaced Disposition: ADMITTED IP TO THIS [facility] Condition: Serious Is patient prescribed a controlled substance at d/c from ED?: No Time of Disposition: 01:51
[2023-03-06 01:10] LABS: Basophils # (A) 0.1 k/uL (0-0.2); Basophils % (A) 0 %; Eosinophils # (A) 0.4 k/uL (0-0.7); Eosinophils % (A) 2 %; HCT 42.5 % (34.0-46.0); HGB 14.1 gm/dL (11.4-16.0); Lymphocytes # (A) 2.6 k/uL (1.0-4.8); Lymphocytes % (A) 12 %; MCH 29.2 pg (25.0-35.0); MCHC 33.3 g/dL (31.0-37.0); MCV 87.7 fL (80.0-100.0); Mean Platelet Volume 9.5; Monocytes # (A) 0.7 k/uL (0-1.0); Monocytes % (A) 3 %; Neutrophils # (A) 17.2 k/uL (1.3-7.7); Neutrophils % (A) 81 %; Platelet Count 225 k/uL (150-450); RBC 4.85 m/uL (3.80-5.40); RDW 15.6 % (11.5-15.5); WBC 21.2 k/uL (3.8-10.6)
[2023-03-06 01:18] LABS: Albumin 4.4 g/dL (3.5-5.0); Calcium 9.3 mg/dL (8.4-10.2); Magnesium 2.3 mg/dL (1.6-2.3); Total Bilirubin 2.4 mg/dL (0.2-1.3)
[2023-03-06 01:20] LABS: INR 1.7 (<1.2); Partial Thromboplastin Time 24.8 sec (22.0-30.0); Prothrombin Time 16.4 sec (9.0-12.0)
[2023-03-06 01:28] LABS: Potassium 4.7 mmol/L (3.5-5.1)
--- NOTE | 2023-03-06 01:33 | XR ---
EXAM: XR Chest, 2 Views CLINICAL HISTORY: difficulty breathing TECHNIQUE: Frontal and lateral views of the chest. COMPARISON: 07/25/2022 FINDINGS: Lungs: The lungs are stable in appearance without focal airspace consolidation. The pulmonary vasculature appears possibly minimally more prominent and equalized. Pleural space: Unremarkable. No pneumothorax. No large pleural effusion. Heart: The cardiac silhouette is stable in appearance. Mediastinum: The mediastinal contours are stable and unremarkable. The trachea is midline. Bones/joints: Stable intact sternotomy wires. No acute osseous abnormality. IMPRESSION: The lungs are stable in appearance without focal airspace consolidation. The pulmonary vasculature appears possibly minimally more prominent and equalized. Subtle vascular congestion is not excluded. No radiographic evidence for florid CHF. No pleural effusion or pneumothorax.
[2023-03-06] MEDS ORDERED: ALBUTEROL NEBULIZED 2.5 MG/3 ML INHALATION PRN (01:44)
[2023-03-06] MEDS ORDERED: ALBUTEROL NEBULIZED 2.5 MG/3 ML INHALATION STA (01:44)
[2023-03-06] MEDS ORDERED: HEPARIN SODIUM 1,000 UN/ML (10ML VL) IV PRN (01:53)
[2023-03-06] MEDS ORDERED: HEPARIN SODIUM 1,000 UN/ML (10ML VL) IV ONE (01:53)
[2023-03-06] MEDS ORDERED: HEPARIN SOD,PORK IN 0.45% NACL 25,000 UNIT in 0.45% NACL 1 250ML.BAG IV SCH (02:00)
--- NOTE | 2023-03-06 03:24 | CT ---
EXAM: CT Angiography Chest With Intravenous Contrast CLINICAL HISTORY: ITS.REASON CT Reason: HARRIS TECHNIQUE: Axial computed tomographic angiography images of the chest with intravenous contrast. CTDI is 34.68 mGy and DLP is 744.9 mGy-cm. This CT exam was performed using one or more of the following dose reduction techniques: automated exposure control, adjustment of the mA and/or kV according to patient size, and/or use of iterative reconstruction technique. MIP reconstructed images were created and reviewed. COMPARISON: CTA chest dated 03/18/2022 FINDINGS: Pulmonary arteries: No evidence for pulmonary embolism. Aorta: The aortic root is somewhat prominent. However, the aortic arch and descending aorta are within normal limits in size. No thoracic aortic aneurysm. Lungs: Diffuse peribronchial cuffing and interlobular septal thickening noted. Subtle ground-glass opacities, most notable in the upper lobes. Pleural space: Trace subcentimeter pleural effusions noted posteriorly. No loculation. No pneumothorax. Heart: The cardiac chambers are upper normal limits in size. An aortic valve replacement is noted. Bones/joints: No acute fracture. No dislocation. Soft tissues: Unremarkable. Lymph nodes: Unremarkable. No enlarged lymph nodes. IMPRESSION: 1. No evidence for pulmonary embolism. 2. Diffuse peribronchial cuffing and interlobular septal thickening noted. Subtle ground-glass opacities, most notable in the upper lobes. The primary consideration is interstitial pulmonary edema with some coexisting alveolar component noted. Infection is considered less likely. 3. Trace subcentimeter pleural effusions noted posteriorly. No loculation. No pneumothorax.
[2023-03-06] MEDS ORDERED: predniSONE 50 MG TAB PO STA (03:31)
[2023-03-06] MEDS: FUROSEMIDE 10 MG/ML 4 ML VIAL IV STA ×2 (03:50→04:03)
[2023-03-06] MEDS ORDERED: NALOXONE 0.4 MG/ML 1 ML VIAL IV PRN (03:58)
[2023-03-06] MEDS ORDERED: ACETAMINOPHEN TAB 325 MG TAB PO PRN (03:58)
[2023-03-06] MEDS: FUROSEMIDE 10 MG/ML 4 ML VIAL IV SCH ×2 (07:47→20:55)
[2023-03-06 10:11] LABS: Glucose,Whole Blood 188 mg/dL (70-110)
--- NOTE | 2023-03-06 10:51 | P.PCN ---
Date of Procedure: 03/06/23 Operative Findings: Cardiovascular report Performing physician Layton Thorpe M.D. Procedure performed Fluoroscopy of mechanical aortic valve Indication Rule out mechanical aortic valve prosthesis thrombosis. The patient is a 47-year-old female patient who had valvular heart disease and she is status post mechanical aortic valve replacement and she was receiving Coumadin. She presented to the hospital with heart failure. The INR was 1.7. The echo showed increased velocity across aortic valve was peak systolic velocity almost 5 m/s. Aortic valve was not well-visualized. There was a concern about possible aortic valve thrombosis. Because of that the patient was brought to the cardiac label printer to assess the valve under fluoroscopy. Procedure description After obtaining an informed consent the patient was brought to the cardiac label printer. Under multiple view including an anterior posterior as well as oblique we did evaluate the aortic valve. The evaluation revealed what it seems to be aortic valve thrombosis was extremely sluggish motion of the aortic valve leaflets. Conclusion Mechanical aortic valve thrombosis.
[2023-03-06] MEDS ORDERED: ALTEPLASE IV ONE (11:00)
[2023-03-06] MEDS ORDERED: SODIUM CHLORIDE 0.9% IV ONE (11:00)
--- NOTE | 2023-03-06 11:17 | P.CNPUL ---
History of Present Illness Consult date: 03/06/23 Requesting physician: Ahmet Rodriguez Reason for consult: dyspnea, hypoxemia, abnormal CXR/CT, other (Critical care management) Chief complaint: Shortness of breath, dyspnea on exertion History of present illness: This is a very pleasant 47-year-old female patient with a known history of CVA/TIA, hyperlipidemia, hypertension, former smoker, congenital absence of the kidney area she has a history of endocarditis and is status post bilateral prosthetic aortic valve replacement 2014 with subsequent prosthetic mismatch and redo surgery with mechanical aortic valve replacement and aortic root en largement in 2019 at the [facility]. She's been anticoagulated with warfarin. Most recent cardiac catheterization in 2020 revealed normal coronary arteries. Echocardiogram from July 2022 revealed a normal left ventricular size and systolic function. Stable aortic valve mechanical prosthesis with mild to moderate stenosis and mild regurgitation. She been seen by cardiology on for increasing shortness of breath and an outpatient workup revealed elevated BNP of 7630 and was initiated on Lasix. Her symptoms progressed and she presented to the emergency room just after midnight this morning by EMS with chest pain and shortness of breath. CT angiogram ruled out pulmonary embolism. There is diffuse peribronchial cuffing and interlobular septal thickening. Subtle ground glass opacities most notable in the upper lobes. Primary considerations interstitial pulmonary edema. Trace pleural effusions. 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 She's been initiated on a heparin drip. White count 21.2. Hemoglobin 14.1. Platelets 225. INR 1.7. Sodium 134. Potassium 4.7. Bicarb 28. BUN 30. Creatinine 1.34. Glucose 222. Troponins 0.55, 0.43, 0.36, proBNP now 12,500. She's been initiated on Lasix 40 mg IV every 12 hours. Review of Systems REVIEW OF SYSTEMS: CONSTITUTIONAL: Denies any recent significant weight loss or weight gain. EYES: Denies change in vision. EARS, NOSE, MOUTH, THROAT: Denies headaches, denies sore throat. CARDIOVASCULAR: Positive for chest pain, no palpitations or syncopal episodes. RESPIRATORY: Positive for shortness of breath, no cough, congestion or hemoptysis. GASTROINTESTINAL: Denies change in appetite, denies abdominal pain GENITOURINARY: Denies hematuria, denies infections. MUSKULOSKELETAL: Denies pain, denies swelling. INTEGUMENTARY: Denies rash, denies eczema. NEUROLOGICAL: Denies recent memory loss, no recent seizure activity. PSYCHIATRIC: Denies anxiety, denies depression. HEMATOLOGIC/LYMPHATIC: Denies anemia, denies enlarged lymph nodes. Past Medical History Past Medical History: CVA/TIA, GERD/Reflux, Hyperlipidemia, Hypertension, Sleep Apnea/CPAP/BIPAP Additional Past Medical History / Comment(s): "MRI SHOWS FEW STROKES;" C/O N/T, WEAKNESS LT ARM. LIGHTHEADEDNESS. abdominal and chest pain, born with 1 kidney History of Any Multi-Drug Resistant Organisms: None Reported Past Surgical History: Cardiac Valve Replacement, Heart Catheterization Additional Past Surgical History / Comment(s): EXC WISDOM TEETH, 1st open heart surgery 2014 mechanical aortic valve 2020 with aortic root repair, eye surgery 2019 Past Anesthesia/Blood Transfusion Reactions: No Reported Reaction Past Psychological History: Anxiety, Depression Smoking Status: Former smoker Past Alcohol Use History: None Reported Past Drug Use History: None Reported - Past Family History Mother Family Medical History: AFIB, CVA/TIA Additional Family Medical History / Comment(s): "BLOOD CLOT BEHIND HEART" Brother(s) Family Medical History: CVA/TIA Additional Family Medical History / Comment(s): HAD MULT STROKES IN LATE S, LUPUS Medications and Allergies Home Medications Medication Instructions Recorded Confirmed Type Omeprazole 20 mg PO DAILY 02/01/21 03/06/23 History Warfarin [Coumadin] 5 mg PO TUTHFR 02/01/21 03/06/23 History Warfarin [Coumadin] 7.5 mg PO SUMOWESA 02/01/21 03/06/23 History Nitroglycerin Sl Tabs [Nitrostat] 0.4 mg SUBLINGUAL Q5M PRN #10 tab 03/18/22 03/06/23 Rx Famotidine 40 mg PO DAILY 10/22/22 03/06/23 History buPROPion HCL [Wellbutrin SR] 150 mg PO HS 10/22/22 03/06/23 History Cyclobenzaprine [Flexeril] 10 mg PO BID PRN 03/06/23 03/06/23 History Furosemide [Lasix] 40 mg PO DAILY 03/06/23 03/06/23 History Lisinopril-Hctz 20-25 mg 1 tab PO DAILY 03/06/23 03/06/23 History [Zestoretic 20-25] Metoprolol Tartrate [Lopressor] 25 mg PO BID 03/06/23 03/06/23 History Terbinafine [LamISIL] 250 mg PO DAILY 03/06/23 03/06/23 History amLODIPine [Norvasc] 5 mg PO DAILY 03/06/23 03/06/23 History Allergies Allergy/AdvReac Type Severity Reaction Status Date / Time No Known Allergies Allergy Verified 03/06/23 08:43 Physical Exam Vitals: Vital Signs Temp Pulse Pulse Resp BP BP Pulse Ox 03/06/23 10:15 03/06/23 10:08 03/06/23 09:05 95 28 H 103/67 92 L 03/06/23 08:30 97 03/06/23 08:04 90 24 105/70 96 03/06/23 05:00 89 22 03/06/23 04:54 97.4 F L 90 18 112/69 97 03/06/23 03:27 87 18 103/66 96 03/06/23 02:32 90 20 103/66 98 03/06/23 02:12 87 03/06/23 02:02 90 03/06/23 01:24 95 22 100/68 97 03/06/23 00:50 22 03/06/23 00:46 98.0 F 76 20 114/71 95 FiO2 03/06/23 10:15 50 03/06/23 10:08 50 03/06/23 09:05 03/06/23 08:30 03/06/23 08:04 03/06/23 05:00 03/06/23 04:54 03/06/23 03:27 03/06/23 02:32 03/06/23 02:12 03/06/23 02:02 03/06/23 01:24 03/06/23 00:50 03/06/23 00:46 Intake and Output 03/05/23 03/06/23 03/06/23 22:59 06:59 14:59 Intake Total 66.548 Balance 66.548 Intake: IV 10 Invasive Line 1 10 Intake, IV Titration 56.548 Amount Heparin Sod,Pork in 0.45% 56.548 NaCl 25,000 unit In 0.45 % NaCl 1 250ml.bag @ 10 UNITS/KG/HR 9.979 mls/hr IV .Q24H [facility] Rx#: [id number] Other: Voiding Method Bedside Commode Bedside Commode Weight 98.7 kg GENERAL EXAM: Alert, anxious, dyspneic 47-year-old female, on 5 L high flow nasal cannula, fairly comfortable in no apparent distress. HEAD: Normocephalic. EYES: Normal reaction of pupils, equal size. NOSE: Clear with pink turbinates. THROAT: No erythema or exudates. NECK: No masses, no JVD. CHEST: No chest wall deformity. LUNGS: Equal air entry with crackles in the bilateral bases. CVS: S1 and S2 normal with an audible murmur, regular rhythm. ABDOMEN: No hepatosplenomegaly, normal bowel sounds, no guarding or rigidity. SPINE: No scoliosis or deformity SKIN: No rashes CENTRAL NERVOUS SYSTEM: No focal deficits, tone is normal in all 4 extremities. EXTREMITIES: There is trace peripheral edema. No clubbing, no cyanosis. Peripheral pulses are intact. Results - Laboratory Findings CBC and BMP: 03/06/23 00:55 03/06/23 00:55 PT/INR, D-dimer PT 16.4 sec (9.0-12.0) H 03/06/23 00:55 INR 1.7 (<1.2) H 03/06/23 00:55 Abnormal lab findings: Abnormal Labs 03/06/23 03/06/23 03/06/23 00:55 00:55 00:55 WBC 21.2 H RDW 15.6 H Neutrophils # 17.2 H PT 16.4 H INR 1.7 H Sodium 134 L Chloride 94 L BUN 30 H Creatinine 1.34 H Glucose 222 H POC Glucose (mg/dL) Total Bilirubin 2.4 H AST 115 H ALT 76 H Troponin I 03/06/23 03/06/23 03/06/23 00:55 05:21 07:39 WBC RDW Neutrophils # PT INR Sodium Chloride BUN Creatinine Glucose POC Glucose (mg/dL) Total Bilirubin AST ALT Troponin I 0.551 H* 0.430 H* 0.364 H* 03/06/23 10:09 WBC RDW Neutrophils # PT INR Sodium Chloride BUN Creatinine Glucose POC Glucose (mg/dL) 188 H Total Bilirubin AST ALT Troponin I - Diagnostic Findings Chest x-ray: image reviewed CT scan - chest: image reviewed Assessment and Plan Assessment: Acute hypoxemic respiratory failure secondary to fluid volume overload secondary to abnormal functioning mechanical aortic valve 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 Currently subtherapeutic at 1.7 History of CVA/TIA Hyperlipidemia Hypertension Congenital or absence of one kidney Anxiety/depression Former smoker Plan: The patient was seen and evaluated Chest x-ray, CAT scan, medications and labs reviewed Aortic valve evaluated per cardiology Heparin drip discontinued, initiated on alteplase drip at 1 mg per hour Placed on BiPAP 12/5 and 50% FiO2, titrate the FiO2 as tolerated The plan is to transfer to the [facility] In the interim we'll continue to follow her closely here in the intensive care unit I have personally seen and examined the patient, performed the documentation and the assessment and plan as written. Number of minutes spent on the visit: 20.
--- NOTE | 2023-03-06 11:27 | P.CRDCN ---
History of Present Illness Consult date: 03/06/23 History of present illness: HISTORY OF PRESENT ILLNESS: This is a 47-year-old female patient of Dr. Silva with a past medical history significant for hypertension, GERD, obstructive sleep apnea with CPAP use, infective endocarditis with tissue valve in 2014, and redo aortic valve replacement with mechanical aortic valve in March 2020 as well as aortic root enlargement at the [facility]. We have been asked to see the patient in consultation for heart failure. Patient presented to the emergency center due to shortness of breath that started on Thursday and progressively getting worse along with orthopnea. She states she sometimes has a pressure type sensation in her chest. She denies lightheadedness, dizziness or syncopal episodes. She was seen in the office by Dr. Silva's DOCUMENTATION BILLING CLERK on 03/04 and blood work as well as an echocardiogram was ordered. Patient unfortunately continued to have worsening symptoms. Regarding patient's INR, it is unclear when patient is having this done because she states it is not checked regularly. She has been taking Coumadin. INR came back subtherapeutic at 1.7, patient was started on heparin drip and admitted to the cardiac stepdown unit. At the time of evaluation, patient was having significant shortness of breath dyspnea at rest and a stat echocardiogram was ordered due to concern for thrombus at the aortic valve replacement. This was not clearly visualized. Recommendations were made for patient to move to the intensive care unit and transfer to [facility]. Patient did show some decline in her condition and it was decided the patient would go for fluoroscopy of the mechanical valve immediately. This did reveal a mechanical aortic valve thrombosis. EKG reveals sinus mechanism with no signs of acute ischemia Chest xray reveals lungs are stable in appearance without focal airspace consolidation. Only vascular appears possibly minimally more prominent. No evidence of CHF. No pleural effusion or pneumothorax. Chest CTA: Negative for PE, diffuse peribronchial cuffing and interlobular septal thickening. Septal ground glass opacities most notably in the upper lobes. Primary consideration is interstitial pulmonary edema with some coexisting alveolar component. Infection is considered less likely. Trace subcentimeter pleural effusions. No pneumothorax. Laboratory data: WBC 21.2, hemoglobin 14.1, platelet count 225. INR 1.7. Sodium 134, potassium 4.7, chloride 94, CO2 28, BUN 30 creatinine 1.34. Magnesium 2.3. Total bilirubin 2.4, AST 115, ALT 76, alkaline phosphatase 92. Troponin 0.551, 0.430 and 0.364. ProBNP 12,500. Influenza A, influenza B, RSV, Covid 19 not detected Current home cardiac medications include Norvasc 5 mg at night, Lasix 40 mg daily, Zestoretic 2024 milligrams daily, Lopressor 25 mg twice daily, Nitrostat as needed, Coumadin 5 mg on Thursday and 7.5 on the other days. Echocardiogram 07/2022 revealed EF of 60-65%, concentric left hypertrophy. Stable aortic valve mechanical prosthesis with mild to moderate stenosis and mild regurgitation. No significant pulmonary hypertension. No pericardial effusion. Cardiac catheterization performed in January 2021 revealed normal coronary arteries with 10% left main narrowing related to vasospasm. REVIEW OF SYSTEMS: At the time of my exam: CONSTITUTIONAL: Denies fever or chills. HEENT: Denies blurred vision, vision changes, or eye pain. Denies hemoptysis CARDIOVASCULAR: Reports chest pain. Reports orthopnea. Denies PND. Denies palpitations RESPIRATORY: Reports significant shortness of breath. Reports pedal edema GASTROINTESTINAL: Denies abdominal pain. Denies nausea or vomiting. HEMATOLOGIC: Denies bleeding disorders. GENITOURINARY: Denies any blood in urine. SKIN: Denies pruitis. Denies rash. PHYSICAL EXAM: VITAL SIGNS: Reviewed. GENERAL: Well-developed in no acute distress. HEENT: Head is normocephalic. Pupils are equal, round. Sclerae anicteric. Mucous membranes of the mouth are moist. Neck supple. No JVD or thyromegaly LUNGS: Respirations are labored, tachypneic. Ccrackles in the bilateral bases HEART: Regular rate and rhythm. S1 and S2 heard. ABDOMEN: Soft. Nondistended. Nontender. EXTREMITIES:1+ lower extremity edema NEUROLOGIC: Awake and alert. Oriented x 3. ASSESSMENT: Mechanical aortic valve thrombosis Elevated troponin secondary to above Acute systolic heart failure Acute hypoxic respiratory failure History of infective endocarditis with aortic valve replacement in 2014 and redo aortic valve replacement with mechanical aortic valve and 2020 Subtherapeutic INR Obstructive sleep apnea Hypertension GERD PLAN: Continue heparin drip, Lasix 40 mg IV every 12 hours Transfer patient to the intensive care unit Recommend transfer to [facility] While waiting for transfer, patient will be started on Alteplase Prognosis guarded Further recommendations pending patient course Nurse practitioner note has been reviewed by physician. Signing provider agrees with the documented findings, assessment, and plan of care. Past Medical History Past Medical History: CVA/TIA, GERD/Reflux, Hyperlipidemia, Hypertension, Sleep Apnea/CPAP/BIPAP Additional Past Medical History / Comment(s): "MRI SHOWS FEW STROKES;" C/O N/T, WEAKNESS LT ARM. LIGHTHEADEDNESS. abdominal and chest pain, born with 1 kidney History of Any Multi-Drug Resistant Organisms: None Reported Past Surgical History: Cardiac Valve Replacement, Heart Catheterization Additional Past Surgical History / Comment(s): EXC WISDOM TEETH, 1st open heart surgery 2014 mechanical aortic valve 2020 with aortic root repair, eye surgery 2019 Past Anesthesia/Blood Transfusion Reactions: No Reported Reaction Past Psychological History: Anxiety, Depression Smoking Status: Former smoker Past Alcohol Use History: None Reported Past Drug Use History: None Reported - Past Family History Mother Family Medical History: AFIB, CVA/TIA Additional Family Medical History / Comment(s): "BLOOD CLOT BEHIND HEART" Brother(s) Family Medical History: CVA/TIA Additional Family Medical History / Comment(s): HAD MULT STROKES IN LATE , LUPUS Medications and Allergies Home Medications Medication Instructions Recorded Confirmed Type Omeprazole 20 mg PO DAILY 02/01/21 03/06/23 History Warfarin [Coumadin] 5 mg PO TUTHFR 02/01/21 03/06/23 History Warfarin [Coumadin] 7.5 mg PO SUM[place]ESA 02/01/21 03/06/23 History Nitroglycerin Sl Tabs [Nitrostat] 0.4 mg SUBLINGUAL Q5M PRN #10 tab 03/18/22 03/06/23 Rx Famotidine 40 mg PO DAILY 10/22/22 03/06/23 History buPROPion HCL [Wellbutrin SR] 150 mg PO HS 10/22/22 03/06/23 History Cyclobenzaprine [Flexeril] 10 mg PO BID PRN 03/06/23 03/06/23 History Furosemide [Lasix] 40 mg PO DAILY 03/06/23 03/06/23 History Lisinopril-Hctz 20-25 mg 1 tab PO DAILY 03/06/23 03/06/23 History [Zestoretic 20-25] Metoprolol Tartrate [Lopressor] 25 mg PO BID 03/06/23 03/06/23 History Terbinafine [LamISIL] 250 mg PO DAILY 03/06/23 03/06/23 History amLODIPine [Norvasc] 5 mg PO DAILY 03/06/23 03/06/23 History Allergies Allergy/AdvReac Type Severity Reaction Status Date / Time No Known Allergies Allergy Verified 03/06/23 08:43 Physical Exam Vitals: Vital Signs Temp Pulse Pulse Resp BP BP Pulse Ox 03/06/23 08:04 90 24 105/70 96 03/06/23 05:00 89 22 03/06/23 04:54 97.4 F L 90 18 112/69 97 03/06/23 03:27 87 18 103/66 96 03/06/23 02:32 90 20 103/66 98 03/06/23 02:12 87 03/06/23 02:02 90 03/06/23 01:24 95 22 100/68 97 03/06/23 00:50 22 03/06/23 00:46 98.0 F 76 20 114/71 95 Intake and Output 03/05/23 03/06/23 03/06/23 22:59 06:59 14:59 Intake Total 66.548 Balance 66.548 Intake: IV 10 Invasive Line 1 10 Intake, IV Titration 56.548 Amount Heparin Sod,Pork in 0.45% 56.548 NaCl 25,000 unit In 0.45 % NaCl 1 250ml.bag @ 10 UNITS/KG/HR 9.979 mls/hr IV .Q24H [facility] Rx#: [id number] Other: Voiding Method Bedside Commode Bedside Commode Weight 98.7 kg Results 03/06/23 00:55 03/06/23 00:55 Cardiac Enzymes 03/06/23 03/06/23 03/06/23 Range/Units 00:55 00:55 05:21 AST 115 H (14-36) U/L Troponin I 0.551 H* 0.430 H* (0.000-0.034) ng/mL Coagulation 03/06/23 03/06/23 Range/Units 00:55 07:39 PT 16.4 H (9.0-12.0) sec APTT 24.8 29.3 (22.0-30.0) sec CBC 03/06/23 Range/Units 00:55 WBC 21.2 H (3.8-10.6) k/uL RBC 4.85 (3.80-5.40) m/uL Hgb 14.1 (11.4-16.0) gm/dL Hct 42.5 (34.0-46.0) % Plt Count 225 (150-450) k/uL Comprehensive Metabolic Panel 03/06/23 Range/Units 00:55 Sodium 134 L (137-145) mmol/L Potassium 4.7 (3.5-5.1) mmol/L Chloride 94 L (98-107) mmol/L Carbon Dioxide 28 (22-30) mmol/L BUN 30 H (7-17) mg/dL Creatinine 1.34 H (0.52-1.04) mg/dL Glucose 222 H (74-99) mg/dL Calcium 9.3 (8.4-10.2) mg/dL AST 115 H (14-36) U/L ALT 76 H (4-34) U/L Alkaline Phosphatase 92 (38-126) U/L Total Protein 8.0 (6.3-8.2) g/dL Albumin 4.4 (3.5-5.0) g/dL Current Medications Generic Name Dose Route Start Last Admin Trade Name Freq PRN Reason Stop Dose Admin Acetaminophen 650 mg 03/06/23 03:58 Acetaminophen Tab 325 Mg Tab PO Q6HR PRN Mild Pain or Fever > 100.5 Albuterol Sulfate 2.5 mg 03/06/23 01:44 Albuterol Nebulized 2.5 Mg/3 Ml INHALATION RT-QID PRN Shortness Of Breath Or Wheezing Furosemide 40 mg 03/06/23 09:00 03/06/23 07:47 Furosemide 10 Mg/Ml 4 Ml Vial IV 40 mg Q12HR LEONOR Administration Heparin Sodium (Porcine) 0 unit 03/06/23 01:53 Heparin Sodium 1,000 Un/Ml (10ml Vl) IV PER PROTOCOL PRN Low PTT Protocol Heparin Sodium/Sodium Chloride 250 mls @ 9.979 mls/hr 03/06/23 02:00 03/06/23 08:07 25,000 unit/ Sodium Chloride IV 13 units/kg/hr .Q24H LEONOR 12.973 mls/hr Titration Protocol 10 UNITS/KG/HR Naloxone HCl 0.2 mg 03/06/23 03:58 Naloxone 0.4 Mg/Ml 1 Ml Vial IV Q2M PRN Opioid Reversal Intake and Output 03/05/23 03/06/23 03/06/23 22:59 06:59 14:59 Intake Total 66.548 Balance 66.548 Intake: IV 10 Invasive Line 1 10 Intake, IV Titration 56.548 Amount Heparin Sod,Pork in 0.45% 56.548 NaCl 25,000 unit In 0.45 % NaCl 1 250ml.bag @ 10 UNITS/KG/HR 9.979 mls/hr IV .Q24H [facility] Rx#: [id number] Other: Voiding Method Bedside Commode Bedside Commode Weight 98.7 kg 03/06/23 00:55 03/06/23 00:55
[2023-03-06 14:50] LABS: HCT 44.5 % (34.0-46.0); HGB 14.6 gm/dL (11.4-16.0); MCH 29.4 pg (25.0-35.0); MCHC 32.7 g/dL (31.0-37.0); MCV 89.9 fL (80.0-100.0); Mean Platelet Volume 9.2; Platelet Count 229 k/uL (150-450); RBC 4.95 m/uL (3.80-5.40); RDW 15.6 % (11.5-15.5); WBC 19.2 k/uL (3.8-10.6)
[2023-03-06 18:15] LABS: HCT 42.2 % (34.0-46.0); HGB 13.8 gm/dL (11.4-16.0); MCH 29.4 pg (25.0-35.0); MCHC 32.7 g/dL (31.0-37.0); MCV 89.8 fL (80.0-100.0); Mean Platelet Volume 8.6; Platelet Count 222 k/uL (150-450); RBC 4.69 m/uL (3.80-5.40); RDW 15.5 % (11.5-15.5); WBC 21.5 k/uL (3.8-10.6)
[2023-03-06 20:10] VITALS: TEMP 98.3
[2023-03-06 21:06] VITALS: BP 137/90; PULSE 103; RESP 21
--- NOTE | 2023-03-07 17:01 | CA ---
Transthoracic Echo Report Name: Rachel Mcgee Age: 47 Gender: F : 1975 Exam Date: 03/06/2023 08:17 Exam Location: [facility] Ht (in): 63 Wt (lb): 217 Ordering Physician: Jose Cheung MD Attending/Referring Phys: [id number], Jonatan Christian Counselor Yolanda Saleh RDCS Procedure CPT: Indications: chf Cardiac Hx: Technical Quality: Technically difficult study Contrast 1: Total Dose (mL): Contrast 2: Total Dose (mL): MEASUREMENTS (Male / Female) Normal Values 2D ECHO LV Diastolic Diameter PLAX 4.7 cm 4.2 - 5.9 / 3.9 - 5.3 cm LV Systolic Diameter PLAX 3.4 cm IVS Diastolic Thickness 2.0 cm 0.6 - 1.0 / 0.6 - 0.9 cm LVPW Diastolic Thickness 1.7 cm 0.6 - 1.0 / 0.6 - 0.9 cm LV Relative Wall Thickness 0.8 LA Volume 73.7 cm??? 18 - 58 / 22 - 52 cm??? DOPPLER AV Peak Velocity 514.9 cm/s AV Peak Gradient 106.1 mmHg AV Mean Velocity 405.5 cm/s AV Mean Gradient 71.0 mmHg AV Velocity Time Integral 120.3 cm LVOT Peak Velocity 52.0 cm/s LVOT Peak Gradient 1.1 mmHg LVOT Velocity Time Integral 11.2 cm MV Area PHT 4.0 cm??? Mitral E Point Velocity 131.8 cm/s Mitral A Point Velocity 0.9 cm/s Mitral E to A Ratio 145.5 MV Deceleration Time 191.6 ms FINDINGS Left Ventricle Technically difficult study, Patient is unable to lay zacarias due to shortness of breath. Severely increased left ventricular wall thickness. Left ventricular cavity size normal. Reduced global left ventricular systolic function. Left ventricular ejection fraction is estimated at 40-45 %. Abnormal (paradoxical) septal motion consistent with postoperative state. Right Ventricle Normal right ventricular size and function. Right ventricular systolic pressure within normal limits. Right Atrium Normal right atrial size. Left Atrium Severely increased left atrial volume. Mitral Valve Structurally normal mitral valve. Moderate mitral regurgitation. Aortic Valve Mechanical prosthetic aortic valve. Abnormally functioning prosthetic aortic valve. Gradient recorded across the prosthetic aortic valve above the expected range. Prosthetic aortic valve stenosis. Can not rule out thrombosis. Tricuspid Valve Trace tricuspid regurgitation. Pulmonic Valve Trace pulmonic regurgitation. Pericardium No pericardial effusion. Aorta Normal size aortic root and proximal ascending aorta. CONCLUSIONS Left ventricular hypertrophy with reduced LV systolic function Left radical ejection fraction 40% Mechanical prosthetic aortic valve with significantly elevated gradients Aortic valve not well visualized Moderate MR Severe left atrial enlargement Consider transesophageal echo to assess aortic valve function Previewed by: Dr. Obey Abarca MD (Electronically Signed) Final Date: 07 Mar 2023 17:00
== END 2023-03-06 22:06 | disposition short-term general hospital (02) | DRG 314 ==
LOC: EC 00:44 → 3SCARD 03:58 → 2SICU 09:34
PROVIDERS: ADMIT Family Medicine; ATTEND Family Medicine
PROC: 5A09357 Assistance with Respiratory Ventilation, Less than 24 Consecutive Hours, Continuous Positive Airway Pressure (ICD-10-PCS; 2023-03-06)
PROC: 5A0935A Assistance with Respiratory Ventilation, Less than 24 Consecutive Hours, High Flow/Velocity Cannula (ICD-10-PCS; 2023-03-06)
PROC: 3E03317 Introduction of Other Thrombolytic into Peripheral Vein, Percutaneous Approach (ICD-10-PCS; 2023-03-06)
PROC: B3101ZZ Fluoroscopy of Thoracic Aorta using Low Osmolar Contrast (ICD-10-PCS; principal; 2023-03-06 14:35)
DX: T82.867A Thrombosis due to cardiac prosthetic devices, implants and grafts, initial encounter (principal); I50.21 Acute systolic (congestive) heart failure; J96.01 Acute respiratory failure with hypoxia; Q60.0 Renal agenesis, unilateral; D68.8 Other specified coagulation defects; I45.2 Bifascicular block; I11.0 Hypertensive heart disease with heart failure; F32.A Depression, unspecified; E78.5 Hyperlipidemia, unspecified; F41.9 Anxiety disorder, unspecified; G47.33 Obstructive sleep apnea (adult) (pediatric); K21.9 Gastro-esophageal reflux disease without esophagitis; R77.8 Other specified abnormalities of plasma proteins; Y71.2 Prosthetic and other implants, materials and accessory cardiovascular devices associated with adverse incidents; Z20.822 Contact with and (suspected) exposure to COVID-19; I69.398 Other sequelae of cerebral infarction; Z95.2 Presence of prosthetic heart valve; Z87.891 Personal history of nicotine dependence; Z79.01 Long term (current) use of anticoagulants; Z82.49 Family history of ischemic heart disease and other diseases of the circulatory system; Z86.79 Personal history of other diseases of the circulatory system
CPT/HCPCS: 36415; 71046; 71275; 76000; 80053; 82565; 83605; 83735; 83880; 84484; 84520; 85025; 85027; 85384; 85610; 85730; 86850; 86900; 86901; 87636; 93005; 93306; 94640; 94760; 96365; 96366; 96375; 99291

== ENCOUNTER → 2023-07-25 | Outpatient (CLI) | payer MEDICAID, OTHER ==
[2023-07-25 13:48] LABS: HCT 38.5 % (37.2-46.3); HGB 12.4 d/dL (12.0-15.0); MCH 29.5 pg (27.0-32.0); MCHC 32.2 d/dL (32.0-37.0); MCV 91.4 FL (80.0-97.0); NRBC Per 100 WBC 0 X 10*3/uL (0.00-0.01); Platelet Count 409 X 10*3/uL (140-440); RBC 4.21 X 10*6/uL (4.10-5.20); WBC 11.78 X 10*3/uL (4.50-10.00)
[2023-07-25 23:32] LABS: ALT 17 U/L (8-44); AST 21 U/L (13-35); Albumin 3.2 d/dL (3.8-4.9); Albumin/Globulin Ratio 1.07 Ratio (1.60-3.17); Alkaline Phosphatase 113 U/L (41-126); BUN/Creat Ratio 6.62 Ratio (12.00-20.00); Blood Urea Nitrogen 8.6 mg/dL (9.0-27.0); Carbon Dioxide 26.4 mmol/L (21.6-31.8); Chloride 100 mmol/L (96-109); Glucose 85 mg/dL (70-110); Potassium 4.4 mmol/L (3.5-5.5); Sodium 142 mmol/L (135-145); Total Bilirubin 0.3 mg/dL (0.3-1.2); Total Protein 6.2 d/dL (6.2-8.2)
== END | disposition home or self-care (01) ==
LOC: LABWHC1 10:19
PROVIDERS: ATTEND Family Medicine
DX: N18.32 Chronic kidney disease, stage 3b (principal); N17.9 Acute kidney failure, unspecified; G72.81 Critical illness myopathy
CPT/HCPCS: 36415; 80053; 84443; 85027

== ENCOUNTER → 2023-09-24 | Outpatient (CLI) | payer OTHER ==
[2023-09-25 02:16] LABS: HCT 42.1 % (37.2-46.3); HGB 14.6 g/dL (12.0-15.0); MCH 30.9 pg (27.0-32.0); MCHC 34.7 g/dL (32.0-37.0); Mean Platelet Volume 9.4 FL (9.5-12.2); NRBC Per 100 WBC 0 X 10*3/uL (0.00-0.01); Platelet Count 290 X 10*3/uL (140-440); RBC 4.73 X 10*6/uL (4.10-5.20); RDW 15.6 % (11.5-14.5); WBC 15.99 X 10*3/uL (4.50-10.00)
[2023-09-25 03:04] LABS: ALT 70 U/L (8-44); AST 72 U/L (13-35); Albumin 3.7 g/dL (3.8-4.9); Albumin/Globulin Ratio 1.06 Ratio (1.60-3.17); Alkaline Phosphatase 203 U/L (41-126); Calcium 10.1 mg/dL (8.7-10.3); Carbon Dioxide 29.3 mmol/L (21.6-31.8); Chloride 81 mmol/L (96-109); Globulin 3.5 g/dL (1.6-3.3); Glucose 93 mg/dL (70-110); Potassium 3.5 mmol/L (3.5-5.5); Sodium 129 mmol/L (135-145); Total Bilirubin 0.3 mg/dL (0.3-1.2); Total Protein 7.2 g/dL (6.2-8.2)
== END | disposition home or self-care (01) ==
LOC: LABWHC1 16:16
PROVIDERS: ATTEND Family Medicine
DX: E53.8 Deficiency of other specified B group vitamins (principal); N18.32 Chronic kidney disease, stage 3b; R53.83 Other fatigue
CPT/HCPCS: 36415; 80053; 82607; 82746; 85027

== ENCOUNTER 2023-11-18 19:53 | Emergency (ER) | payer OTHER ==
[2023-11-18 20:11] VITALS: RESP 18; TEMP 98.4
[2023-11-18] MEDS: ONDANSETRON 4 MG/2 ML VIAL IVP STA (21:55)
[2023-11-18] MEDS: PANTOPRAZOLE 40 MG/10 ML VIAL IVP STA (21:55)
[2023-11-18 21:56] LABS: Anisocytosis Slight; Basophils # (A) 0.1 k/uL (0-0.2); Basophils % (A) 0 %; Eosinophils # (A) 0.3 k/uL (0-0.7); Eosinophils % (A) 3 %; HCT 36.9 % (34.0-46.0); HGB 12.3 gm/dL (11.4-16.0); Lymphocytes # (A) 1.6 k/uL (1.0-4.8); Lymphocytes % (A) 13 %; MCH 31.9 pg (25.0-35.0); MCHC 33.3 g/dL (31.0-37.0); MCV 95.8 fL (80.0-100.0); Mean Platelet Volume 7.6; Monocytes # (A) 0.6 k/uL (0-1.0); Monocytes % (A) 5 %; Neutrophils # (A) 9.7 k/uL (1.3-7.7); Neutrophils % (A) 77 %; Platelet Count 304 k/uL (150-450); RBC 3.86 m/uL (3.80-5.40); RDW 16.3 % (11.5-15.5); WBC 12.6 k/uL (3.8-10.6)
[2023-11-18] MEDS: SODIUM CHLORIDE 0.9% 1,000 ML IV STA (21:56)
[2023-11-18] MEDS: MORPHINE SULFATE 4 MG/ML SYRINGE IVP STA (21:56)
[2023-11-18 22:05] LABS: Partial Thromboplastin Time 24.6 sec (22.0-30.0); Prothrombin Time 11.3 sec (10.0-12.5)
[2023-11-18 22:12] LABS: ALT 22 U/L (4-34); AST 23 U/L (14-36); African American GFR (CKD) 50 (>60 ml/min/1.73 sqM); Albumin 3.2 g/dL (3.5-5.0); Alkaline Phosphatase 90 U/L (38-126); Amylase 42 U/L (30-110); Anion Gap 7 mmol/L; Blood Urea Nitrogen 13 mg/dL (7-17); Calcium 9.4 mg/dL (8.4-10.2); Carbon Dioxide 25 mmol/L (22-30); Chloride 103 mmol/L (98-107); Glucose 84 mg/dL (74-99); Lipase 37 U/L (23-300); Non-African American GFR(CKD) 44 (>60 ml/min/1.73 sqM); Potassium 4.3 mmol/L (3.5-5.1); Sodium 135 mmol/L (137-145); Total Bilirubin 0.7 mg/dL (0.2-1.3); Total Protein 6.1 g/dL (6.3-8.2)
[2023-11-18 22:17] LABS: Appearance,Urine Clear (Clear); Bilirubin,Urine Negative (Negative); Blood,Urine Negative (Negative); Color,Urine Yellow; Glucose,Urine (UA) Negative (Negative); Ketones,Urine Negative (Negative); Leukocyte Esterase,Urine Trace (Negative); Nitrite,Urine Negative (Negative); PH, Urine 6.5 (5.0-8.0); Protein,Urine 1+ (Negative); RBC,Urine <1 /hpf (0-5); Specific Gravity,Urine 1.016 (1.001-1.035); Squamous Epithelial Cell,Urine 1 /hpf (0-4); Urobilinogen,Urine <2.0 mg/dL (<2.0); WBC,Urine 8 /hpf (0-5)
--- NOTE | 2023-11-18 23:25 | ED ---
General Adult HPI - General Source: patient, RN notes reviewed, old records reviewed Mode of arrival: ambulatory Limitations: no limitations <Paramjit Batista - Last Filed: 11/18/23 23:21> <Doreen Gunter - Last Filed: 11/24/23 14:18> - General Chief complaint: Abdominal Pain Stated complaint: abd pain, back pain Time Seen by Provider: 11/18/23 20:21 - History of Present Illness Initial comments: Patient is a 48-year-old female who presents emergency department complaining of abdominal pain. Has a history of ileostomy, CABG, GERD, hypertension. Pain primarily located in the right lower quadrant with some radiation around the flank. 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 Denies any dysuria, hematuri a. Denies any change in ostomy output. Denies any chest pain, shortness of breath, nausea, vomiting. Presents for further evaluation at this time. (Paramjit Batista) - Related Data Home Medications Medication Instructions Recorded Confirmed Omeprazole 20 mg PO DAILY 02/01/21 03/06/23 Warfarin [Coumadin] 5 mg PO TUTHFR 02/01/21 03/06/23 Warfarin [Coumadin] 7.5 mg PO [place]ESA 02/01/21 03/06/23 Famotidine 40 mg PO DAILY 10/22/22 03/06/23 buPROPion HCL [Wellbutrin SR] 150 mg PO HS 10/22/22 03/06/23 Cyclobenzaprine [Flexeril] 10 mg PO BID PRN 03/06/23 03/06/23 Furosemide [Lasix] 40 mg PO DAILY 03/06/23 03/06/23 Lisinopril-Hctz 20-25 mg 1 tab PO DAILY 03/06/23 03/06/23 [Zestoretic 20-25] Metoprolol Tartrate [Lopressor] 25 mg PO BID 03/06/23 03/06/23 Terbinafine [LamISIL] 250 mg PO DAILY 03/06/23 03/06/23 amLODIPine [Norvasc] 5 mg PO DAILY 03/06/23 03/06/23 Previous Rx's Medication Instructions Recorded Nitroglycerin Sl Tabs [Nitrostat] 0.4 mg SUBLINGUAL Q5M PRN #10 tab 03/18/22 Allergies Allergy/AdvReac Type Severity Reaction Status Date / Time No Known Allergies Allergy Verified 03/06/23 08:43 Review of Systems ROS Other: All systems not noted in ROS Statement are negative. <Paramjit Batista - Last Filed: 11/18/23 23:21> ROS Other: All systems not noted in ROS Statement are negative. <Doreen Gunter - Last Filed: 11/24/23 14:18> ROS Statement: Those systems with pertinent positive or pertinent negative responses have been documented in the HPI. Review of Systems: CONST: Denies fever EYES: Denies blurry vision ENT: Denies nasal congestion C/V: Denies Chest pain RESP: Denies shortness of breath GI: Endorses abdominal pain : Denies dysuria SKIN: Denies rash. MSK: Denies joint pain. NEURO: Denies headache (Paramjit Batista) Past Medical History Past Medical History: CVA/TIA, GERD/Reflux, Hyperlipidemia, Hypertension, Sleep Apnea/CPAP/BIPAP Additional Past Medical History / Comment(s): "MRI SHOWS FEW STROKES;" C/O N/T, WEAKNESS LT ARM. LIGHTHEADEDNESS. abdominal and chest pain, born with 1 kidney History of Any Multi-Drug Resistant Organisms: None Reported Past Surgical History: Cardiac Valve Replacement, Heart Catheterization Additional Past Surgical History / Comment(s): EXC WISDOM TEETH, 1st open heart surgery 2014 mechanical aortic valve 2020 with aortic root repair, eye surgery 2019 Past Anesthesia/Blood Transfusion Reactions: No Reported Reaction Past Psychological History: Anxiety, Depression Smoking Status: Former smoker Past Alcohol Use History: None Reported Past Drug Use History: None Reported - Past Family History Mother Family Medical History: AFIB, CVA/TIA Additional Family Medical History / Comment(s): "BLOOD CLOT BEHIND HEART" Brother(s) Family Medical History: CVA/TIA Additional Family Medical History / Comment(s): HAD MULT STROKES IN LATE 20'S, LUPUS <Paramjit Batista - Last Filed: 11/18/23 23:21> General Exam Limitations: no limitations <Paramjit Batista - Last Filed: 11/18/23 23:21> - General Exam Comments Initial Comments: General: Appears in mild distress. HEAD: Normal with no signs of head trauma. EYES: PERRLA, EOMI, conjunctiva normal, no discharge. ENT: Hearing grossly intact, normal oropharynx. RESPIRATORY: Clear breath sounds bilaterally. No wheezes, rales, or rhonchi. C/V: Regular rate and rhythm. S1 and S2 auscultated, no edema, peripheral pulses 2+ and intact throughout ABD: Abd is soft, distended. Mildly tender to palpation in the right lower quadrant. No guarding. No rebound tenderness. Ostomy in place properly. EXT: Normal range of motion, no obvious deformity SKIN: No rashes or lesions observed on exposed skin. NEURO: Alert and oriented x 4. (Paramjit Batista) Course Vital Signs 11/18/23 11/18/23 11/19/23 20:03 23:00 00:39 Temperature 98.4 F Pulse Rate 98 88 84 Respiratory 18 18 18 Rate Blood Pressure 158/69 152/80 143/72 O2 Sat by Pulse 100 100 100 Oximetry Medical Decision Making - Lab Data Result diagrams: 11/18/23 21:00 11/18/23 21:00 <Paramjit Batista - Last Filed: 11/18/23 23:21> - Lab Data Result diagrams: 11/18/23 21:00 11/18/23 21:00 <Doreen Gunter - Last Filed: 11/24/23 14:18> - Medical Decision Making Was pt. sent in by a medical professional or institution (ABIGAIL Sharma, FAMILY RESOURCE SPECIALIST, urgent care, hospital, or penitentiary...) When possible be specific @ -No Did you speak to anyone other than the patient for history (EMS, parent, family, police, friend...)? What history was obtained from this source @ -No Did you review nursing and triage notes (agree or disagree)? Why? @ -I reviewed and agree with nursing and triage notes Were old charts reviewed (outside hosp., previous admission, EMS record, old EKG, old radiological studies, urgent care reports/EKG's, penitentiary records)? Report findings @ -Old chart reviewed Differential Diagnosis (chest pain, altered mental status, abdominal pain women, abdominal pain men, vaginal bleeding, weakness, fever, dyspnea, syncope, headache, dizziness, GI bleed, back pain, seizure, CVA, palpatations, mental health, musculoskeletal)? @ -Differential Abdominal Pain Women: Appendicitis, Cholecystitis, diverticulosis, ischemic bowel, pancreatitis, hepatitis, UTI, gastroenteritis, AAA, incarcerated hernia, bowel obstruction, constipation, inflammatory bowel, hepatitis, peptic ulcer disease, splenic infa rction, perforated viscus, vulvitis, ovarian torsion, PID, kidney stone, placenta abruption, this is not meant to be an all-inclusive list EKG interpreted by me (3pts min.). @ -As above X-rays interpreted by me (1pt min.). @ -None done CT interpreted by me (1pt min.). @ -Pending U/S interpreted by me (1pt. min.). @ -Pending What testing was considered but not performed or refused? (CT, X-rays, U/S, labs)? Why? @ -None What meds were considered but not given or refused? Why? @ -None Did you discuss the management of the patient with other professionals (professionals i.e. , PA, FAMILY RESOURCE SPECIALIST, lab, RT, psych nurse, director social service, dairy machine operator farmworker, teacher, youth officer, human services case manager)? Give summary @ -No Was smoking cessation discussed for >3mins.? @ -No Was critical care preformed (if so, how long)? @ -No Were there social determinants of health that impacted care today? How? (Homelessness, low income, unemployed, alcoholism, drug addiction, transportation, low edu. Level, literacy, decrease access to med. care, group home, rehab)? @ -No Was there de-escalation of care discussed even if they declined (Discuss DNR or withdrawal of care, Hospice)? DNR status @ -No What co-morbidities impacted this encounter? (DM, HTN, Smoking, COPD, CAD, Cancer, CVA, ARF, Chemo, Hep., AIDS, mental health diagnosis, sleep apnea, morbid obesity)? @ -Intra-abdominal surgery, ileostomy Was patient admitted / discharged? Hospital course, mention meds given and route, prescriptions, significant lab abnormalities, going to OR and other pertinent info. @ -Based on the patient's presentation and physical exam, presents with right lower quadrant abdominal pain and pelvis pain. We will obtain CT abdomen/pelvis as well as abdominal laboratory studies. Patient was in agreement this plan. Vital signs are within acceptable limits. Patient will be symptomatically treated with IV fluids, Protonix, Zofran, mor phine. Laboratory studies are remarkable for mild leukocytosis of 12.6. Remainder the labs unremarkable. No hematuria. At this time, imaging is pending. Signed out to covering ER physician Dr. Gunter pending results of imaging. Undiagnosed new problem with uncertain prognosis? @ -No Drug Therapy requiring intensive monitoring for toxicity (Heparin, Nitro, Insulin, Cardizem)? @ -No Were any procedures done? @ -No (Paramjit Batista) Patient is signed out to me awaiting CT results. CT demonstrates no acute process. Discussed this with the patient who is glad to hear that there is no signs of obstruction. Patient is informed to monitor her symptoms at home. Fo llow-up with her primary care doctor and return back should she have any new or worsening symptoms. Patient agreeable to the plan she was discharged in stable condition (Doreen Gunter) - Lab Data Lab Results 11/18/23 11/18/23 11/18/23 Range/Units 21:00 21:00 21:00 WBC 12.6 H (3.8-10.6) k/uL RBC 3.86 (3.80-5.40) m/uL Hgb 12.3 (11.4-16.0) gm/dL Hct 36.9 (34.0-46.0) % MCV 95.8 (80.0-100.0) fL MCH 31.9 (25.0-35.0) pg MCHC 33.3 (31.0-37.0) g/dL RDW 16.3 H (11.5-15.5) % Plt Count 304 (150-450) k/uL MPV 7.6 Neutrophils % 77 % Lymphocytes % 13 % Monocytes % 5 % Eosinophils % 3 % Basophils % 0 % Neutrophils # 9.7 H (1.3-7.7) k/uL Lymphocytes # 1.6 (1.0-4.8) k/uL Monocytes # 0.6 (0-1.0) k/uL Eosinophils # 0.3 (0-0.7) k/uL Basophils # 0.1 (0-0.2) k/uL Anisocytosis Slight PT 11.3 (10.0-12.5) sec INR 1.0 (<1.2) APTT 24.6 (22.0-30.0) sec Sodium (137-145) mmol/L Potassium (3.5-5.1) mmol/L Chloride (98-107) mmol/L Carbon Dioxide (22-30) mmol/L Anion Gap mmol/L BUN (7-17) mg/dL Creatinine (0.52-1.04) mg/dL Est GFR (CKD-EPI)AfAm (>60 ml/min/1.73 sqM) Est GFR (CKD-EPI)NonAf (>60 ml/min/1.73 sqM) Glucose (74-99) mg/dL Plasma Lactic Acid Hossein (0.7-2.0) mmol/L Calcium (8.4-10.2) mg/dL Total Bilirubin (0.2-1.3) mg/dL AST (14-36) U/L ALT (4-34) U/L Alkaline Phosphatase (38-126) U/L Total Protein (6.3-8.2) g/dL Albumin (3.5-5.0) g/dL Amylase (30-110) U/L Lipase (23-300) U/L Urine Color Yellow Urine Appearance Clear (Clear) Urine pH 6.5 (5.0-8.0) Ur Specific [place] 1.016 (1.001-1.035) Urine Protein 1+ H (Negative) Urine Glucose (UA) Negative (Negative) Urine Ketones Negative (Negative) Urine Blood Negative (Negative) Urine Nitrite Negative (Negative) Urine Bilirubin Negative (Negative) Urine Urobilinogen <2.0 (<2.0) mg/dL Ur Leukocyte Esterase Trace H (Negative) Urine RBC <1 (0-5) /hpf Urine WBC 8 H (0-5) /hpf Ur Squamous Epith Cells 1 (0-4) /hpf 11/18/23 11/18/23 Range/Units 21:00 21:00 WBC (3.8-10.6) k/uL RBC (3.80-5.40) m/uL Hgb (11.4-16.0) gm/dL Hct (34.0-46.0) % MCV (80.0-100.0) fL MCH (25.0-35.0) pg MCHC (31.0-37.0) g/dL RDW (11.5-15.5) % Plt Count (150-450) k/uL MPV Neutrophils % % Lymphocytes % % Monocytes % % Eosinophils % % Basophils % % Neutrophils # (1.3-7.7) k/uL Lymphocytes # (1.0-4.8) k/uL Monocytes # (0-1.0) k/uL Eosinophils # (0-0.7) k/uL Basophils # (0-0.2) k/uL Anisocytosis PT (10.0-12.5) sec INR (<1.2) APTT (22.0-30.0) sec Sodium 135 L (137-145) mmol/L Potassium 4.3 (3.5-5.1) mmol/L Chloride 103 (98-107) mmol/L Carbon Dioxide 25 (22-30) mmol/L Anion Gap 7 mmol/L BUN 13 (7-17) mg/dL Creatinine 1.41 H (0.52-1.04) mg/dL Est GFR (CKD-EPI)AfAm 50 (>60 ml/min/1.73 sqM) Est GFR (CKD-EPI)NonAf 44 (>60 ml/min/1.73 sqM) Glucose 84 (74-99) mg/dL Plasma Lactic Acid Hossein 1.2 (0.7-2.0) mmol/L Calcium 9.4 (8.4-10.2) mg/dL Total Bilirubin 0.7 (0.2-1.3) mg/dL AST 23 (14-36) U/L ALT 22 (4-34) U/L Alkaline Phosphatase 90 (38-126) U/L Total Protein 6.1 L (6.3-8.2) g/dL Albumin 3.2 L (3.5-5.0) g/dL Amylase 42 (30-110) U/L Lipase 37 (23-300) U/L Urine Color Urine Appearance (Clear) Urine pH (5.0-8.0) Ur Specific [place] (1.001-1.035) Urine Protein (Negative) Urine Glucose (UA) (Negative) Urine Ketones (Negative) Urine Blood (Negative) Urine Nitrite (Negative) Urine Bilirubin (Negative) Urine Urobilinogen (<2.0) mg/dL Ur Leukocyte Esterase (Negative) Urine RBC (0-5) /hpf Urine WBC (0-5) /hpf Ur Squamous Epith Cells (0-4) /hpf Disposition <Paramjit Batista - Last Filed: 11/18/23 23:21> Is patient prescribed a controlled substance at d/c from ED?: No Time of Disposition: 00:20 <Doreen Gunter - Last Filed: 11/24/23 14:18> Clinical Impression: Abdominal pain, Pelvic pain, S/P ileostomy Disposition: HOME SELF-CARE Condition: Stable Instructions (If sedation given, give patient instructions): Abdominal Pain (ED) Additional Instructions: Please monitor your symptoms. Return to the emergency department for any new or worsening symptoms Referrals: Ahmet Rodriguez MD [Primary Care Provider] - 1-2 days
--- NOTE | 2023-11-18 23:30 | US ---
EXAM: US Abdomen Complete CLINICAL HISTORY: ITS.REASON US Reason: right abd pain TECHNIQUE: Real-time ultrasound of the abdomen with image documentation. COMPARISON: Concomitant to CT scan. FINDINGS: Liver: Hepatic steatosis. No intrahepatic bile duct dilation. Gallbladder: Unremarkable. No gallstones. Common bile duct: 5 mm common bile duct. No stones. No dilation. Pancreas: Unremarkable as visualized. Kidneys: Severe atrophy of the RIGHT kidney identified on the concomitant CT scan. No stones. No hydronephrosis. IMPRESSION: 1. Hepatic steatosis. 2. Severe atrophy of the RIGHT kidney identified on the concomitant CT scan.
--- NOTE | 2023-11-18 23:39 | CT ---
EXAM: CT Abdomen and Pelvis With Intravenous Contrast CLINICAL HISTORY: ITS.REASON CT Reason: abdominal pain, RLQ TECHNIQUE: Axial computed tomography images of the abdomen and pelvis with intravenous contrast. CTDI is 18.6 mGy and DLP is 887.2 mGy-cm. This CT exam was performed using one or more of the following dose reduction techniques: automated exposure control, adjustment of the mA and/or kV according to patient size, and/or use of iterative reconstruction technique. COMPARISON: No relevant prior studies available. FINDINGS: ABDOMEN: Liver: Hepatic steatosis. Gallbladder and bile ducts: Unremarkable. No calcified stones. No ductal dilation. Pancreas: Unremarkable. No mass. No ductal dilation. Spleen: Unremarkable. No splenomegaly. Adrenals: Unremarkable. No mass. Kidneys and ureters: Atrophy of the RIGHT kidney. No hydronephrosis. Stomach and bowel: Partial colectomy. RIGHT lower quadrant colostomy. No small bowel obstruction. PELVIS: Appendix: See above. Bladder: Unremarkable. No mass. Reproductive: Unremarkable as visualized. ABDOMEN and PELVIS: Intraperitoneal space: Unremarkable. No significant fluid collection. No free air. Bones/joints: Degenerative changes of the spine. No acute fracture. No dislocation. Soft tissues: Unremarkable. Vasculature: Atherosclerotic changes of the aorta. No abdominal aortic aneurysm. Lymph nodes: Unremarkable. No enlarged lymph nodes. IMPRESSION: 1. No free air. 2. Partial colectomy. RIGHT lower quadrant colostomy. No small bowel obstruction. 3. Hepatic steatosis. 4. Atrophy of the RIGHT kidney.
[2023-11-19 01:00] VITALS: BP 143/72; PULSE 84
== END 2023-11-19 00:41 | disposition home or self-care (01) ==
LOC: EC 19:53
DX: R10.31 Right lower quadrant pain (principal); R10.2 Pelvic and perineal pain; D72.829 Elevated white blood cell count, unspecified; I10 Essential (primary) hypertension; K21.9 Gastro-esophageal reflux disease without esophagitis; F32.A Depression, unspecified; F41.9 Anxiety disorder, unspecified; Z79.01 Long term (current) use of anticoagulants; Z79.899 Other long term (current) drug therapy; Z86.73 Personal history of transient ischemic attack (TIA), and cerebral infarction without residual deficits; Z87.891 Personal history of nicotine dependence; Z93.2 Ileostomy status
CPT/HCPCS: 36415; 80053; 82150; 83605; 83690; 85025; 85610; 85730; 81001; 76705; 76770; 74177; 99285; 96374; 96375 ×2; 96361; J2270; J2405; C9113; Q9967

== ENCOUNTER → 2023-12-29 | Outpatient (CLI) | payer OTHER ==
[2023-12-29 17:32] LABS: HCT 41.9 % (37.2-46.3); HGB 13.5 g/dL (12.0-15.0); MCHC 32.2 g/dL (32.0-37.0); MCV 93.1 FL (80.0-97.0); NRBC Per 100 WBC 0 X 10*3/uL (0.00-0.01); Platelet Count 451 X 10*3/uL (140-440); RDW 14.3 % (11.5-14.5); WBC 11.75 X 10*3/uL (4.50-10.00)
[2023-12-29 17:54] LABS: BUN/Creat Ratio 16.62 Ratio (12.00-20.00); Blood Urea Nitrogen 39.9 mg/dL (9.0-27.0); Chloride 93 mmol/L (96-109); Glucose 115 mg/dL (70-110); Sodium 134 mmol/L (135-145)
[2023-12-29 17:55] LABS: ALT 27 U/L (8-44); AST 25 U/L (13-35); Calcium 11.5 mg/dL (8.7-10.3)
[2023-12-29 17:57] LABS: NT-Pro-B-Type Natriuretic Pept 717 pg/mL (0-125)
== END | disposition home or self-care (01) ==
LOC: LABWHC1 12:25
PROVIDERS: ATTEND Internal Medicine
DX: R60.0 Localized edema (principal)
CPT/HCPCS: 36415; 80048; 83880; 84450; 84460; 85027

== ENCOUNTER → 2024-02-23 | Outpatient (CLI) | payer OTHER ==
[2024-02-23 18:37] LABS: HCT 43.8 % (37.2-46.3); HGB 13.9 g/dL (12.0-15.0); MCH 28.3 pg (27.0-32.0); MCHC 31.7 g/dL (32.0-37.0); Mean Platelet Volume 10.1 FL (9.5-12.2); NRBC Per 100 WBC 0 X 10*3/uL (0.00-0.01); Platelet Count 300 X 10*3/uL (140-440); RBC 4.92 X 10*6/uL (4.10-5.20); RDW 15.8 % (11.5-14.5); WBC 9.58 X 10*3/uL (4.50-10.00)
[2024-02-23 20:24] LABS: Blood Urea Nitrogen 30.6 mg/dL (9.0-27.0); Chloride 100 mmol/L (96-109); Glucose 101 mg/dL (70-110); Potassium 4.7 mmol/L (3.5-5.5); Sodium 132 mmol/L (135-145)
[2024-02-23 20:25] LABS: ALT 51 U/L (8-44); AST 37 U/L (13-35); Albumin 4.5 g/dL (3.8-4.9); Albumin/Globulin Ratio 1.18 Ratio (1.60-3.17); Alkaline Phosphatase 191 U/L (41-126); Calcium 10.9 mg/dL (8.7-10.3); Carbon Dioxide 16.1 mmol/L (21.6-31.8); Globulin 3.8 g/dL (1.6-3.3); Total Bilirubin 0.4 mg/dL (0.3-1.2); Total Protein 8.3 g/dL (6.2-8.2)
== END | disposition home or self-care (01) ==
LOC: LABWHC1 12:22
PROVIDERS: ATTEND Family Medicine
DX: F33.1 Major depressive disorder, recurrent, moderate (principal); Z90.49 Acquired absence of other specified parts of digestive tract
CPT/HCPCS: 36415; 80053; 85027

== ENCOUNTER 2024-05-11 06:33 | Day surgery (SDC) | payer OTHER ==
[~2024-05-11 06:33] MED LIST changes: -LACTATED RINGERS 1,000 ML IV SCH; +LIDOCAINE 1% (10MG/ML) FOR IV START INTRADERMA PRN
[2024-05-11 07:16] VITALS: RESP 16; TEMP 97.3
[2024-05-11] MEDS: LACTATED RINGERS 1,000 ML IV SCH (07:28)
[2024-05-11] MEDS: IV FLUID CONTINUATION 1,000 ML IV ONE (07:34)
[2024-05-11] MEDS ORDERED: LIDOCAINE 1% INJ 10MG/ML (20 ML MDV) ONE (07:41)
[2024-05-11] MEDS ORDERED: PROPOFOL 10 MG/ML 20 ML VIAL IV ONE (07:41)
--- NOTE | 2024-05-11 08:05 | P.GSHP ---
History of Present Illness H&P Date: 05/11/24 CHIEF COMPLAINT: GI bleed HISTORY OF PRESENT ILLNESS: The patient is a 48-year-old female who presents with GI bleed including her ostomy for over 6 months. Patient reports having a prior ileostomy with subtotal colectomy. She presents for endoscopy assessment. PAST MEDICAL HISTORY: Please see list. PAST SURGICAL HISTORY: Please see list. MEDICATIONS: Please see list. ALLERGIES: Please see list. SOCIAL HISTORY: No illicit drug use FAMILY HISTORY: No reports of Crohn disease or ulcerative colitis. REVIEW OF ORGAN SYSTEMS: CONSTITUTIONAL: No reports of fevers or chills. PHYSICAL EXAM: VITAL SIGNS: Stable GENERAL: Well-developed pleasant in no acute distress. HEENT: No scleral icterus. Extraocular movements grossly intact. Moist buccal mucosa. NECK: Supple without lymphadenopathy. CHEST: Unlabored respirations. Equal bilateral excursions. CARDIOVASCULAR: Regular rate and rhythm. Distal 2+ pulses. ABDOMEN: Soft, nontender, nondistended. Ostomy present. MUSCULOSKELETAL: No clubbing, cyanosis, or edema. ASSESSMENT: 1. GI bleed. PLAN: 1. Recommend proceeding with a lower endoscopy ostomy and rectum Past Medical History Past Medical History: Atrial Fibrillation, CVA/TIA, GERD/Reflux, Hyperlipidemia, Hypertension, Sleep Apnea/CPAP/BIPAP Additional Past Medical History / Comment(s): "MRI SHOWS FEW STROKES;" C/O N/T, WEAKNESS LT ARM. LIGHTHEADEDNESS. abdominal and chest pain, born with 1 kidney , no cpap after last open heart surgery, on echmo x 1 month in coma for 1/12 months diayisis for 3 months, kellee systemic infections after 3 rd open heart surgery, no longwer on diaylsis trach and peg removed, pt reprots there were some pacer wires lost inside her at time of last open heart surgery, very poor vision due to scarring from infection after last open heart surgery. History of Any Multi-Drug Resistant Organisms: None Reported Past Surgical History: Bowel Resection, Cardiac Valve Replacement, Coronary Bypass/CABG, Heart Catheterization Additional Past Surgical History / Comment(s): EXC WISDOM TEETH, 1st open heart surgery 2014 mechanical aortic valve 2019 with aortic root repair, eye surgery 2 019 has had trach and peg, multiple abdominal surgeries while in coma Past Anesthesia/Blood Transfusion Reactions: No Reported Reaction Smoking Status: Former smoker - Past Family History Mother Family Medical History: AFIB, CVA/TIA Additional Family Medical History / Comment(s): "BLOOD CLOT BEHIND HEART" Brother(s) Family Medical History: CVA/TIA Additional Family Medical History / Comment(s): HAD MULT STROKES IN LATE , LUPUS Medications and Allergies Home Medications Medication Instructions Recorded Confirmed Type Omeprazole 20 mg PO DAILY 02/01/21 05/11/24 History buPROPion HCL [Wellbutrin SR] 150 mg PO HS 10/22/22 05/11/24 History Cyclobenzaprine [Flexeril] 10 mg PO BID PRN 03/06/23 05/11/24 History ALPRAZolam [Xanax] 0.25 mg PO DAILY PRN 05/09/24 05/11/24 History Aspirin [Adult Low Dose Aspirin EC] 81 mg PO DAILY 05/09/24 05/11/24 History Diphenoxylate HCl/Atropine 2 tab PO QID 05/09/24 05/11/24 History [Diphenoxylate HCl/Atropine 2.5-0.025] Fluconazole 200 mg PO BID 05/09/24 05/11/24 History Gabapentin 300 mg PO BID 05/09/24 05/11/24 History Loperamide [Imodium] 2 mg PO QID 05/09/24 05/11/24 History Montelukast [Singulair] 10 mg PO HS 05/09/24 05/11/24 History Sertraline [Zoloft] 50 mg PO DAILY 05/09/24 05/11/24 History Sodium Bicarbonate Tab 650 mg PO BID 05/09/24 05/11/24 History Vit D3(Unk) 2,000 units PO DAILY 05/09/24 05/11/24 History carvediloL 12.5 mg PO BID 05/09/24 05/11/24 History Allergies Allergy/AdvReac Type Severity Reaction Status Date / Time No Known Allergies Allergy Verified 05/11/24 07:15 Surgical - Exam Vital Signs Temp Pulse Resp BP Pulse Ox 97.3 F L 91 16 185/86 100 05/11/24 07:12 05/11/24 07:12 05/11/24 07:12 05/11/24 07:12 05/11/24 07:12
--- NOTE | 2024-05-11 08:42 | P.PCN ---
Date of Procedure: 05/11/24 Description of Procedure: PREOPERATIVE DIAGNOSIS: History of ileostomy Gastrointestinal bleeding History of subtotal colectomy POSTOPERATIVE DIAGNOSIS: History of ileostomy Gastrointestinal bleeding History of subtotal colectomy Retained stool Internal and external hemorrhoids, grade 3 OPERATION: Colonoscopy to the ostomy Colonoscopy via rectum SURGEON: Debra Luna MD. ANESTHESIA: MAC. INDICATIONS: The patient is a 48-year-old female who presents with gastrointestinal bleeding including subtotal colectomy with ileostomy. Benefits and risks were described and informed consent was obtained. DESCRIPTION OF PROCEDURE: The patient had undergone fleets enema. The patient had been brought into the operating room and laid in the left lateral decubitus position. After adequate intravenous sedation, the rectum was examined with lidocaine jelly. External hemorrhoids were encountered. The rectal tone was within normal limits. No lesions were palpated in the rectal vault. The scope was advanced to the rectal stump at 20 cm from the anal verge where solid jodi colored stool was identified prohibiting advancement of the scope. The colonoscope was withdrawn. Retroflexion of the scope demonstrated grade 3 internal hemorrhoids without active bleeding or inflammation. The colon was desufflated. Patient was flipped supine. An Olympus colonoscope was advanced through her ostomy. No bleeding was identified. Ostomy is consistent with ileostomy. No evidence of enteritis was found. The patient had tolerated the procedure well. Withdrawal time was over 6 minutes. FINDINGS: Aronchick preparation quality scale 5 (1-5) Internal hemorrhoids, grade 3 External prolapsed hemorrhoids, grade 3 Retained jodi colored stool preventing advancement of scope beyond 20 cm Rectal stump 20 cm from the anal verge RECOMMENDATIONS: 1. Recommend enemas at minimum monthly 2. Recommend barium enema to identify length of rectal stump Plan - Discharge Summary Discharge Rx Participant: No New Discharge Prescriptions: New Na Phos,M-B/Na Phos,Di-Ba [Fleet Adult] 1 dose RECTAL ONCE #5 each Continue Omeprazole 20 mg PO DAILY buPROPion HCL [Wellbutrin SR] 150 mg PO HS Cyclobenzaprine [Flexeril] 10 mg PO BID PRN PRN Reason: Pain ALPRAZolam [Xanax] 0.25 mg PO DAILY PRN PRN Reason: Anxiety Sertraline [Zoloft] 50 mg PO DAILY Montelukast [Singulair] 10 mg PO HS Loperamide [Imodium] 2 mg PO QID carvediloL 12.5 mg PO BID Gabapentin 300 mg PO BID Sodium Bicarbonate Tab 650 mg PO BID Vit D3(Unk) 2,000 units PO DAILY Fluconazole 200 mg PO BID Diphenoxylate HCl/Atropine [Diphenoxylate HCl/Atropine 2.5-0.025] 2 tab PO QID Aspirin [Adult Low Dose Aspirin EC] 81 mg PO DAILY Discharge Medication List Omeprazole 20 mg PO DAILY 02/01/21 [History] buPROPion HCL [Wellbutrin SR] 150 mg PO HS 10/22/22 [History] Cyclobenzaprine [Flexeril] 10 mg PO BID PRN 03/06/23 [History] ALPRAZolam [Xanax] 0.25 mg PO DAILY PRN 05/09/24 [History] Aspirin [Adult Low Dose Aspirin EC] 81 mg PO DAILY 05/09/24 [History] Diphenoxylate HCl/Atropine [Diphenoxylate HCl/Atropine 2.5-0.025] 2 tab PO QID 05/09/24 [History] Fluconazole 200 mg PO BID 05/09/24 [History] Gabapentin 300 mg PO BID 05/09/24 [History] Loperamide [Imodium] 2 mg PO QID 05/09/24 [History] Montelukast [Singulair] 10 mg PO HS 05/09/24 [History] Sertraline [Zoloft] 50 mg PO DAILY 05/09/24 [History] Sodium Bicarbonate Tab 650 mg PO BID 05/09/24 [History] Vit D3(Unk) 2,000 units PO DAILY 05/09/24 [History] carvediloL 12.5 mg PO BID 05/09/24 [History] Na Phos,M-B/Na Phos,Di-Ba [Fleet Adult] 1 dose RECTAL ONCE #5 each 05/11/24 [Rx] Follow up Appointment(s)/Referral(s): Debra Luna MD [STAFF PHYSICIAN] - 05/24/24 11:00 am Patient Instructions/Handouts: Colonoscopy (DC) Activity/Diet/Wound Care/Special Instructions: Recommend rectal enemas monthly Discharge Disposition: HOME SELF-CARE
[2024-05-11 09:00] VITALS: BP 150/85; PULSE 78
== END 2024-05-11 09:20 | disposition home or self-care (01) ==
LOC: ORWHC2ENDO 06:33
PROVIDERS: ATTEND Surgery Plastic and Reconstructive Surgery
DX: K64.4 Residual hemorrhoidal skin tags (principal); K21.9 Gastro-esophageal reflux disease without esophagitis; I10 Essential (primary) hypertension; E78.5 Hyperlipidemia, unspecified; F12.90 Cannabis use, unspecified, uncomplicated; F41.9 Anxiety disorder, unspecified; F32.A Depression, unspecified; I48.91 Unspecified atrial fibrillation; I49.9 Cardiac arrhythmia, unspecified; I67.9 Cerebrovascular disease, unspecified; I73.9 Peripheral vascular disease, unspecified; G47.33 Obstructive sleep apnea (adult) (pediatric); Z93.2 Ileostomy status; Z90.49 Acquired absence of other specified parts of digestive tract; Z79.82 Long term (current) use of aspirin; Z86.73 Personal history of transient ischemic attack (TIA), and cerebral infarction without residual deficits; Z79.899 Other long term (current) drug therapy; Z95.2 Presence of prosthetic heart valve; Z95.1 Presence of aortocoronary bypass graft; Z87.891 Personal history of nicotine dependence; Z82.3 Family history of stroke; Z99.89 Dependence on other enabling machines and devices
CPT/HCPCS: 45330; 44380; J2001; J2704

== ENCOUNTER → 2024-06-07 | Outpatient (CLI) | payer OTHER ==
[2024-06-07 15:22] LABS: HCT 44.6 % (37.2-46.3); HGB 14.6 g/dL (12.0-15.0); MCH 29.5 pg (27.0-32.0); MCHC 32.7 g/dL (32.0-37.0); MCV 90.1 FL (80.0-97.0); Mean Platelet Volume 9.9 FL (9.5-12.2); NRBC Per 100 WBC 0 X 10*3/uL (0.00-0.01); Platelet Count 232 X 10*3/uL (140-440); RBC 4.95 X 10*6/uL (4.10-5.20); RDW 14.3 % (11.5-14.5); WBC 8.98 X 10*3/uL (4.50-10.00)
[2024-06-07 19:31] LABS: ALT 35 U/L (8-44); AST 27 U/L (13-35); Albumin 4.2 g/dL (3.8-4.9); Alkaline Phosphatase 160 U/L (41-126); BUN/Creat Ratio 11.63 Ratio (12.00-20.00); Blood Urea Nitrogen 22.1 mg/dL (9.0-27.0); Calcium 9.8 mg/dL (8.7-10.3); Carbon Dioxide 23.2 mmol/L (21.6-31.8); Chloride 101 mmol/L (96-109); Chol/HDL Ratio 1.94 Ratio; Glucose 73 mg/dL (70-110); LDL Cholesterol,Calculated 63.6 mg/dL (0.0-131.0); Potassium 4.5 mmol/L (3.5-5.5); Sodium 138 mmol/L (135-145); Total Bilirubin 0.5 mg/dL (0.3-1.2); Total Protein 7.2 g/dL (6.2-8.2)
== END | disposition home or self-care (01) ==
LOC: LABWHC1 11:48
PROVIDERS: ATTEND Family Medicine
DX: R73.01 Impaired fasting glucose (principal); G56.01 Carpal tunnel syndrome, right upper limb; Q60.0 Renal agenesis, unilateral; I12.9 Hypertensive chronic kidney disease with stage 1 through stage 4 chronic kidney disease, or unspecified chronic kidney disease; N18.32 Chronic kidney disease, stage 3b; F33.1 Major depressive disorder, recurrent, moderate
CPT/HCPCS: 36415; 80053; 80061; 83036; 84443; 85027